=== PATIENT | male | born 1950 | race Caucasian/White ===

== ENCOUNTER 2016-06-29 08:14 | Day surgery (SDC) | payer MEDICAID, MEDICARE ==
[2016-06-23 12:00] VITALS: BMI 23.8
[~2016-06-29 08:14] MED LIST: DEXAMETHASONE SOD PHOSPHATE 10 MG/ML 1 ML VIAL IV ONE; HYDROmorphone 1 MG/ML 1 ML SYRINGE IVP PRN; LACTATED RINGERS 1,000 ML IV SCH; LIDOCAINE 1% 20 ML VIAL (10MG/ML) FOR IV START INTRADERMA PRN; MIDAZOLAM 2 MG/2 ML VIAL IV PRN; ONDANSETRON 4 MG/2 ML VIAL IVP ONE; SCOPOLAMINE 1.5MG/72HR PATCH TRANSDERM ONE; ceFAZolin 2 GM in SODIUM CHLORIDE 0.9% 100 ML IVPB ONE
[2016-06-29 08:40] VITALS: RESP 18; TEMP 97.6
--- NOTE | 2016-06-29 10:16 | P.GSHP ---
History of Present Illness H&P Date: 06/29/16 Chief Complaint: Pancreatic cancer Patient here today for Port-A-Cath removal. Port is been functioning properly. He also has a skin lesion in the left chest wall that is being addressed by dermatology. He has plans for that to be excised recently. Past Medical History Past Medical History: Cancer, Osteoarthritis (OA) Additional Past Medical History / Comment(s): DEAF LEFT EAR, RESTLESS LEG, Chronic Back Pain. Positive lymph node had whipple procedure 08/13/15. CHEMO [place] , LAST 12/28/15. HX OF ULCER. RECENT SKIN EXC FROM CHEST. HX OF PANCREATIC CA History of Any Multi-Drug Resistant Organisms: None Reported Past Surgical History: Cholecystectomy Additional Past Surgical History / Comment(s): PORT A CATH LEFT CHEST, NAI EYE CATARACT, nai feet plantar fasciitis surgery, right thumb surgery from previous injury, Whipple procedure 08/13/15, HX OF PERF BOWEL FROM ULCER Past Anesthesia/Blood Transfusion Reactions: No Reported Reaction Past Psychological History: No Psychological Hx Reported Smoking Status: Former smoker Past Alcohol Use History: Rare Additional Past Alcohol Use History / Comment(s): Quit Smoking 07/2015, 1PPD - Smoked ON AND OFF for APPROX 40 yrs Past Drug Use History: Marijuana Additional Drug Use History / Comment(s): INSTRUCTED TO WITHOLD 24 HRS PRIOR TO PROCEDURE - Past Family History Mother Family Medical History: No Reported History Brother(s) Family Medical History: Cancer Sister(s) Family Medical History: No Reported History Daughter(s) Family Medical History: No Reported History Father Family Medical History: Cancer Additional Family Medical History / Comment(s): PROSTATE Medications and Allergies Home Medications Medication Instructions Recorded Confirmed Type ALPRAZolam [Alprazolam] 0.25 mg PO HS 06/23/16 06/29/16 History Glucosamine Sulfate 1,500 mg PO BID 06/23/16 06/29/16 History Hydrocodone/Acetaminophen 1 tab PO DIRECTED PRN 06/23/16 06/29/16 History [Hydrocodon-Acetaminophen 5-325] Multivitamins, Thera [Multivitamin] 1 tab PO DAILY 06/23/16 06/29/16 History Pantoprazole [Protonix] 40 mg PO BID 06/23/16 06/29/16 History Pramipexole [Mirapex] 0.125 mg PO HS 06/23/16 06/29/16 History Warfarin [Coumadin] 5 mg PO SUMOTHSA 06/23/16 06/29/16 History Warfarin [Coumadin] 7.5 mg PO TUWEFR 06/23/16 06/29/16 History Allergies Allergy/AdvReac Type Severity Reaction Status Date / Time No Known Allergies Allergy Verified 06/29/16 08:37 Surgical - Exam Vital Signs Temp Pulse Resp BP Pulse Ox 97.6 F 68 18 137/89 99 06/29/16 08:39 06/29/16 08:39 06/29/16 08:39 06/29/16 08:39 06/29/16 08:39 Physical exam: General: Well-developed, well-nourished Chest: Port noted left chest wall, 2 cm raised skin lesion mildly erythematous inferior to that left chest wall HEENT: Normocephalic, sclerae nonicteric Abdomen: Nontender, nondistended Extremities: No edema Neuro: Alert and oriented Assessment and Plan (1) Pancreatic cancer Narrative/Plan: We'll proceed with port removal. Status: Acute
[2016-06-29] MEDS ORDERED: PROPOFOL 10 MG/ML 20 ML VIAL IV ONE (10:25)
[2016-06-29] MEDS ORDERED: MIDAZOLAM 2 MG/2 ML VIAL ONE (10:25)
[2016-06-29] MEDS ORDERED: fentaNYL (PF) 50 MCG/ML 2 ML AMP ONE (10:25)
[2016-06-29] MEDS ORDERED: LIDOCAINE 1% INJ 10MG/ML (20 ML MDV) SQ ONE ×2 (10:43)
[2016-06-29] MEDS ORDERED: NALOXONE 0.4 MG/ML 1 ML VIAL IV PRN (10:56)
--- NOTE | 2016-06-29 10:58 | P.PCN ---
Date of Procedure: 06/29/16 Procedure(s) Performed: PREOPERATIVE DIAGNOSIS: Pancreatic cancer POSTOPERATIVE DIAGNOSIS: Same PROCEDURE: Port-A-Cath removal SURGEON: Praveen EBL: Minimal ANESTHESIA: Sedation COMPLICATIONS: None OPERATIVE PROCEDURE: Patient was placed in the supine position. The patient was sedated per anesthesia that time. The chest was prepped and draped in the usual sterile fashion. The skin was localized with Marcaine solution. The previous incision was re-incised using a scalpel. The port was easily excised using accommodation of blunt dissection sharp dissection and electrocautery. The subcutaneous tissues were reapproximated using 3-0 Vicryl sutures. The skin was reapproximated using 4-0 Monocryl sutures. Steri-Strips and sterile dressings were then applied. DISPOSITION: Stable to recovery room
[2016-06-29 11:26] VITALS: BP 138/72; PULSE 62
== END 2016-06-29 11:56 | disposition home or self-care (01) ==
LOC: OR 08:14
PROVIDERS: ATTEND Surgery
DX: Z45.2 Encounter for adjustment and management of vascular access device (principal); C25.9 Malignant neoplasm of pancreas, unspecified; Z92.21 Personal history of antineoplastic chemotherapy; I48.91 Unspecified atrial fibrillation; F41.9 Anxiety disorder, unspecified; K21.9 Gastro-esophageal reflux disease without esophagitis; Z79.01 Long term (current) use of anticoagulants; Z79.899 Other long term (current) drug therapy; Z87.891 Personal history of nicotine dependence
CPT/HCPCS: 36590; J2250; J1100; J0690; J2405; J2001; J3010; J2704; 99152; 99153

== ENCOUNTER → 2016-09-05 | Outpatient (CLI) | payer MEDICAID ==
--- NOTE | 2016-09-08 11:29 | ECHOF ---
Referral Reason:I48.1 F fib I10 htn MEASUREMENTS -------- HEIGHT: 177.8 cm WEIGHT: 77.1 kg BP: 136/85 RVIDd: 3.5 cm (< 3.3) IVSd: 1.3 cm (0.6 - 1.1) LVIDd: 3.9 cm (3.9 - 5.3) LVPWd: 1.3 cm (0.6 - 1.1) IVSs: 1.7 cm LVIDs: 2.9 cm LVPWs: 2.1 cm LA Diam: 3.7 cm (2.7 - 3.8) LAESV Index (A-L): 37.30 ml/m Ao Diam: 3.6 cm (2.0 - 3.7) AV Cusp: 2.2 cm (1.5 - 2.6) MV EXCURSION: 21.692 mm (> 18.000) MV EF SLOPE: 56 mm/s (70 - 150) EPSS: 0.5 cm MV E Herrera: 0.59 m/s MV DecT: 289 ms MV A Herrera: 0.70 m/s MV E/A Ratio: 0.85 RAP: 5.00 mmHg RVSP: 25.72 mmHg FINDINGS -------- Sinus rhythm. This was a technically difficult study with suboptimal parasternal views. The left ventricular size is normal. There is mild concentric left ventricular hypertrophy. Overall left ventricular systolic function is normal with, an EF between 60 - 65 %. The right ventricle is mildly enlarged. LA is moderately dilated 34-39 ml/m2 The right atrium is normal in size. There is mild aortic valve sclerosis. Mild mitral annular calcification present. There is trace to mild mitral regurgitation. Mild tricuspid regurgitation present. Right ventricular systolic pressure is normal at < 35 mmHg. The pulmonic valve is normal. There is no pulmonic regurgitation present. The aortic root size is normal. Normal inferior vena cava with normal inspiratory collapse consistent with estimated right atrial pressure of 5 mmHg. There is no pericardial effusion. CONCLUSIONS -------- 1. Sinus rhythm. 2. Mild mitral annular calcification present. 3. There is trace to mild mitral regurgitation. 4. Mild tricuspid regurgitation present. 5. Right ventricular systolic pressure is normal at < 35 mmHg. 6. The pulmonic valve is normal. 7. The aortic root size is normal. 8. Normal inferior vena cava with normal inspiratory collapse consistent with estimated right atrial pressure of 5 mmHg. 9. There is no pericardial effusion. 10. This was a technically difficult study with suboptimal parasternal views. 11. The left ventricular size is normal. 12. There is mild concentric left ventricular hypertrophy. 13. Overall left ventricular systolic function is normal with, an EF between 60 - 65 %. 14. The right ventricle is mildly enlarged. 15. LA is moderately dilated 34-39 ml/m2 16. The right atrium is normal in size. 17. There is mild aortic valve sclerosis. [employer] SUPERVISOR: Lisa Pérez RDCS
== END | disposition home or self-care (01) ==
LOC: RADECHMAIN 11:20
PROVIDERS: ATTEND Internal Medicine Cardiovascular Disease
DX: I08.3 Combined rheumatic disorders of mitral, aortic and tricuspid valves (principal); I10 Essential (primary) hypertension
CPT/HCPCS: 93270; 93271; 93306

== ENCOUNTER → 2016-11-02 | Outpatient (CLI) | payer MEDICAID ==
[2016-11-02 13:31] LABS: Blood Urea Nitrogen 22 mg/dL (9-20); Non-African American GFR(MDRD) >60 (>60 ml/min/1.73 sqM)
--- NOTE | 2016-11-02 14:12 | CT ---
EXAMINATION TYPE: CT abdomen pelvis w con DATE OF EXAM: 11/02/2016 REFERENCE: Previous study dated 03/13/2016. HISTORY: C25.0 Pancreatic CA, Z03.89 Obs for mets HISTORY: Follow up of pancreatic cancer REFERENCE: NONE CT DLP: 627.40 mGy Automated exposure control for dose reduction was used. TECHNIQUE: Helical acquisition through the abdomen and pelvis was obtained following the oral ingesti on of with Oral Contrast and following intravenous administration of 100 mL of Omnipaque 300. The berto a was reformatted in axial, coronal and sagittal projections. FINDINGS: There is some scarring or atelectasis at the left lung base. There is no pleural or perica rdial fluid. The heart is not enlarged. There are coronary artery and other vascular calcifications p resent. Within the abdomen, the liver and spleen appear normal. The gallbladder is not identified. Both adrenal glands are normal. Both kidneys demonstrate function and appear morphologically normal. There is been a previous Whipple's procedure. No definite recurrent mass is seen. There is no significant retroperitoneal, iliac or inguinal adenopathy. There is some calcification within the prostate gland. Prostate gland is mildly enlarged. The bladder wall is mildly thickened. This may be secondary to chronic bladder outlet obstruction. There is no significant diverticular change and I do not see radiographic evidence of diverticulitis. The appendix is not visualized. Small bowel loops are normal. There is no significant free air and there is no free fluid. There is a periumbilical ventral hernia containing small bowel. There is a 4.9 cm mouth. There is a bilateral lysis at L5 with a grade 2 spondylolisthesis of L5 on S1. This was present previ ously. No bony destructive lesion seen. This hypertrophic spondylosis in the lower dorsal spine. IMPRESSION: 1. STATUS POST WHIPPLE'S PROCEDURE. 2. MILD THICKENING OF THE BLADDER WALL LIKELY SECONDARY TO CHRONIC BLADDER OBSTRUCTION. 3. PERIUMBILICAL VENTRAL HERNIA CONTAINING SMALL BOWEL. THERE IS A 4.9 CM MOUTH. 4. BILATERAL LYSIS AT L5 WITH A GRADE 2 SPONDYLOLISTHESIS OF L5 ON S1.
== END | disposition home or self-care (01) ==
LOC: RADCTMAIN 12:33
PROVIDERS: ATTEND Internal Medicine Hematology & Oncology
DX: K43.9 Ventral hernia without obstruction or gangrene (principal); N32.89 Other specified disorders of bladder; C25.0 Malignant neoplasm of head of pancreas; Z90.49 Acquired absence of other specified parts of digestive tract
CPT/HCPCS: 82565; 84520; 74177; 36415; Q9967

== ENCOUNTER → 2016-11-18 | Outpatient (CLI) | payer MEDICAID ==
[2016-11-18 12:27] LABS: Basophils % (A) 1 %; CH 32.4; CHCM 32.9; Eosinophils # (A) 0.4 k/uL (0-0.7); Eosinophils % (A) 4 %; HCT 40.5 % (39.0-53.0); HDW 2.37; HGB 13.2 gm/dL (13.0-17.5); Luc # (Auto) 0.19; Luc % (Auto) 2; Lymphocytes # (A) 1.8 k/uL (1.0-4.8); Lymphocytes % (A) 20 %; MCH 32.2 pg (25.0-35.0); MCHC 32.5 g/dL (31.0-37.0); Mean Platelet Volume 7.6; Monocytes # (A) 0.4 k/uL (0-1.0); Monocytes % (A) 5 %; Neutrophils # (A) 6.3 k/uL (1.3-7.7); Neutrophils % (A) 70 %; RBC 4.09 m/uL (4.30-5.90); RDW 13.8 % (11.5-15.5); WBC 9.1 k/uL (3.8-10.6); WBC (Perox) 9.44
[2016-11-18 12:46] LABS: ALT 40 U/L (21-72); AST 27 U/L (17-59); Alkaline Phosphatase 76 U/L (38-126); Anion Gap 9 mmol/L; Blood Urea Nitrogen 22 mg/dL (9-20); Calcium 9.5 mg/dL (8.4-10.2); Carbon Dioxide 25 mmol/L (22-30); Chloride 110 mmol/L (98-107); Cholesterol 120 mg/dL (<200); Glucose 82 mg/dL (74-99); HDL Cholesterol 59 mg/dL (40-60); Non-African American GFR(MDRD) >60 (>60 ml/min/1.73 sqM); Sodium 144 mmol/L (137-145); Total Bilirubin 0.6 mg/dL (0.2-1.3); Total Protein 6.6 g/dL (6.3-8.2); Triglycerides 56 mg/dL (<150)
== END | disposition home or self-care (01) ==
LOC: LABWHC1 11:35
PROVIDERS: ATTEND Family Medicine
DX: I10 Essential (primary) hypertension (principal); E78.00 Pure hypercholesterolemia, unspecified; Z12.5 Encounter for screening for malignant neoplasm of prostate
CPT/HCPCS: 80061; 80053; 84443; 85025; 36415; G0103

== ENCOUNTER → 2017-09-05 | Outpatient (CLI) | payer MEDICARE ==
[2017-09-05 07:50] LABS: Blood Urea Nitrogen 24 mg/dL (9-20)
--- NOTE | 2017-09-05 09:34 | CT ---
EXAMINATION TYPE: CT abdomen pelvis w con DATE OF EXAM: 09/05/2017 COMPARISON: NONE HISTORY: Pancreatic cancer CT DLP: 1491 mGycm CONTRAST: CT scan of the abdomen and pelvis is performed with Oral Contrast and with IV Contrast, patient injec anatoly with 100 ML mL of Isovue 300. FINDINGS: LUNG BASES-: No visible nodule. No infiltrate. LIVER/GB: No calcified gallstones. No space occupying hepatic lesion. Biliary tree is of normal ca liber. PANCREAS: There is been previous Whipple procedure. No distinct recurrent or residual mass is identif ied. SPLEEN: No splenic enlargement. No lesion seen. ADRENALS: No nodule. No thickening. KIDNEYS/BLADDER: No hydronephrosis. Nonobstructing left-sided nephrolithiasis.. No distinct renal m ass. Urinary bladder grossly unremarkable. BOWEL: Normal appendix. Normal bowel caliber. No inflammation. GENITAL ORGANS: No gross abnormality. LYMPH NODES: No greater than 1cm abdominal or pelvic lymph nodes are appreciated. AORTA: No significant abnormality. OSSEOUS STRUCTURES: Degenerative change and grade 2 spondylolisthesis L5 on S1. OTHER: Umbilical hernia containing several segments of small bowel measures 6 x 3.5 cm. Mouth of the hernia sac is 3.3 cm. No definite obstructive change at this time.. IMPRESSION: 1. Status post Whipple procedure. 2. Nonobstructing left-sided nephrolithiasis. 3. Nonobstructing left-sided nephrolithiasis.
== END | disposition home or self-care (01) ==
LOC: RADCTMAIN 07:09
PROVIDERS: ATTEND Internal Medicine Hematology & Oncology
DX: N20.0 Calculus of kidney (principal); Z90.411 Acquired partial absence of pancreas
CPT/HCPCS: 82565; 84520; 74177; 36415; Q9967

== ENCOUNTER → 2017-12-18 | Outpatient (CLI) | payer MEDICARE ==
[2017-12-18 14:32] LABS: Basophils % (A) 0 %; Eosinophils # (A) 0.2 k/uL (0-0.7); Eosinophils % (A) 2 %; HCT 43.7 % (39.0-53.0); HGB 14.7 gm/dL (13.0-17.5); Lymphocytes # (A) 1.8 k/uL (1.0-4.8); Lymphocytes % (A) 20 %; MCH 32.1 pg (25.0-35.0); MCHC 33.6 g/dL (31.0-37.0); MCV 95.6 fL (80.0-100.0); Mean Platelet Volume 7.8; Monocytes # (A) 0.6 k/uL (0-1.0); Monocytes % (A) 6 %; Neutrophils # (A) 6.6 k/uL (1.3-7.7); Neutrophils % (A) 71 %; Platelet Count 237 k/uL (150-450); RBC 4.57 m/uL (4.30-5.90); RDW 12.7 % (11.5-15.5); WBC 9.4 k/uL (3.8-10.6)
[2017-12-18 14:35] LABS: Calcium 9.7 mg/dL (8.4-10.2); Potassium 4.2 mmol/L (3.5-5.1); Total Bilirubin 0.6 mg/dL (0.2-1.3); Total Protein 6.9 g/dL (6.3-8.2)
[2017-12-18 15:04] LABS: PSA Annual Screen 1.2 ng/mL (0.00-4.00)
== END | disposition home or self-care (01) ==
LOC: LABWHC1 13:25
PROVIDERS: ATTEND Family Medicine
DX: Z00.00 Encounter for general adult medical examination without abnormal findings (principal)
CPT/HCPCS: 80061; 80053; 84443; 85025; 36415; G0103

== ENCOUNTER → 2018-03-29 | Outpatient (CLI) | payer MEDICARE ==
--- NOTE | 2018-03-29 11:24 | CT ---
EXAMINATION TYPE: CT abdomen pelvis w con DATE OF EXAM: 03/29/2018 COMPARISON: INDICATION: Pancreatic cancer DLP: 995 mGycm, Automated exposure control for dose reduction was used. CONTRAST: 100 ml mL of Isovue 300. Study performed with Oral Contrast TECHNIQUE: Axial images were obtained from above the diaphragm to the pubic rami in the axial plane a t 5 mm thick sections. Reconstructed images are reviewed on the computer in the coronal plane. FINDINGS: Limited CT sections are obtained the lung bases. The lung bases are clear. CT ABDOMEN: There is a periumbilical hernia containing loops of bowel. No obstruction is evident, con trast passes through Liver: Normal. Tiny amount of biliary air is present. Spleen: Normal Pancreas: Prior Whipple procedure. Visualized residual pancreas appears normal. Adrenal glands: The adrenal glands are normal. Gallbladder: Normal Kidneys: No masses are evident. No hydronephrosis is present. No cysts are present. There is a 0.5 cm calcification without obstruction in the mid left kidney. Aorta: Vascular calcification is within the aorta. Inferior vena cava: Normal. CT PELVIS: Loops of bowel within the abdomen and pelvis are normal. There are loops of bowel which are incom pletely distended or lack oral contrast limiting their evaluation. Scattered diverticular changes are within the sigmoid colon without acute diverticulitis. Appendix: Normal as visualized. Urinary bladder: Normal. Genitourinary structures: Prostate prominence calcification is present. Osseous structures: No suspicious lytic or sclerotic lesions. IMPRESSIONS: 1. Diverticulosis without acute diverticulitis. 2. Nonobstructing left renal stone. 3. Nonobstructing periumbilical hernia containing contrast-filled loops of bowel. 4. No suspicious recurrence or metastatic pancreatic cancer
== END ==
LOC: RADCTMAIN 07:37
PROVIDERS: ATTEND Internal Medicine Hematology & Oncology
DX: C25.0 Malignant neoplasm of head of pancreas (principal); K57.90 Diverticulosis of intestine, part unspecified, without perforation or abscess without bleeding; N20.0 Calculus of kidney; K42.9 Umbilical hernia without obstruction or gangrene
CPT/HCPCS: 82565; 84520; 74177; 36415; Q9967

== ENCOUNTER → 2018-09-04 | Outpatient (CLI) | payer MEDICARE ==
[2018-09-04 10:13] LABS: ALT 30 U/L (21-72); AST 22 U/L (17-59); Albumin 3.2 g/dL (3.5-5.0); Alkaline Phosphatase 62 U/L (38-126); Anion Gap 5 mmol/L; Blood Urea Nitrogen 23 mg/dL (9-20); Calcium 8.8 mg/dL (8.4-10.2); Carbon Dioxide 27 mmol/L (22-30); Chloride 108 mmol/L (98-107); Glucose 102 mg/dL (74-99); Potassium 4.8 mmol/L (3.5-5.1); Sodium 140 mmol/L (137-145); Total Bilirubin 0.3 mg/dL (0.2-1.3); Total Protein 5.7 g/dL (6.3-8.2)
--- NOTE | 2018-09-04 11:20 | CT ---
EXAMINATION TYPE: CT abdomen pelvis w con DATE OF EXAM: 09/04/2018 COMPARISON: 04/17/2018 HISTORY: epigastric pain CT DLP: 616.4 mGycm Automated exposure control for dose reduction was used. TECHNIQUE: Helical acquisition of images was performed from the lung bases through the pelvis. CONTRAST: Performed with Oral Contrast and with IV Contrast, patient injected with 100 mL of Isovue 370. FINDINGS: LUNG BASES: Minimal emphysematous changes are seen at the lung bases. Bandlike areas of pleural paren chymal scarring are seen multifocally within the left lower lobe and lingula. LIVER/GB: Residual left-sided pneumobilia is similar to the prior status post Whipple procedure. Ther e is main portal vein is enlarged measuring 2.3 cm. No new hepatic lesion is identified. Minimal intr ahepatic biliary ductal dilatation is stable. PANCREAS: The patient is status post Whipple procedure. Moderate was administered per pancreatic mass protocol and therefore the hypodensity seen in the pancreatic head surgical bed on series 6 image 47 represents the descending duodenum right lateral to the superior mesenteric vein. The pancreatic stella sharmila prominence throughout the body of the pancreas is unchanged from the prior. The pancreatic body a nd tail enhance homogeneously. SPLEEN: No significant abnormality is seen. ADRENALS: No significant abnormality is seen. KIDNEYS: Similar-appearing nonobstructing left upper pole renal calculus measures 4 mm. Kidneys enhan ce and excrete symmetrically.. FREE AIR: No free air is visualized. REPRODUCTIVE ORGANS: Prostate gland is heterogenous containing central zone calcifications. URINARY BLADDER: No significant abnormality is seen. ADENOPATHY: Paucity of intra-abdominal fat and opposing bowel loops make evaluation for adenopathy di fficult. Additionally there is mesenteric congestion that is new from the prior and mild anasarca janet t also make delineation of adenopathy difficult. No discrete greater than 1 cm short axis lymph nodes are seen in the retroperitoneum. A cluster loops of bowel are seen in the tyrell hepatis. OSSEOUS STRUCTURES: Sclerosis of the femoral heads may be related to degenerative arthropathy and is symmetric. Sacroiliac joint sclerosis is also seen bilaterally. No new suspicious osseous lesions. G rade 2 anterolisthesis of L5 on S1 is secondary to bilateral pars interarticularis defects. BOWEL: There is a bowel containing ventral abdominal hernia with a wide neck measuring 5 cm. Few sig moid colonic diverticula are noted. No dilated large or small bowel. Moderate degree fecal stasis is noted. IMPRESSION: 1. NEW MILD ANASARCA AND CENTRAL MESENTERIC CONGESTION WITH EVIDENCE OF PORTAL VENOUS HYPERTENSION. 2. NO FINDINGS TO FOCAL RECURRENCE OR ADENOPATHY ALTHOUGH EVALUATION OF ADENOPATHY IS SLIGHTLY LIMITE D SECONDARY TO PAUCITY OF INTRA-ABDOMINAL FAT AND MESENTERIC CONGESTION. 3. NO NEW EVIDENCE OF VISCERAL OR OSSEOUS METASTASIS IN THE ABDOMEN OR PELVIS.
[2018-09-04 16:36] LABS: Iron Saturation 15.24 (15.00-50.00)
[2018-09-04 17:13] LABS: Cancer Antigen 19-9 5.3 U/mL (0.0-34.9)
== END | disposition home or self-care (01) ==
LOC: RADCTMAIN 08:42
PROVIDERS: ATTEND Internal Medicine Hematology & Oncology
DX: K31.89 Other diseases of stomach and duodenum (principal); R60.1 Generalized edema; C25.0 Malignant neoplasm of head of pancreas
CPT/HCPCS: 82747; 80053; 82607; 82728; 83540; 83550; 86301; 74177; Q9967

== ENCOUNTER → 2019-03-12 | Outpatient (CLI) | payer MEDICARE ==
--- NOTE | 2019-03-12 13:34 | CT ---
EXAMINATION TYPE: CT abdomen pelvis w con DATE OF EXAM: 03/12/2019 COMPARISON: CT 09/04/2018, additional multiple previous CTs HISTORY: No complaints, Observation for metastases, history of pancreatic Cancer CT DLP: 615.9 mGycm Automated exposure control for dose reduction was used. TECHNIQUE: Helical acquisition of images from the lung bases through the pelvis have been completed. CONTRAST: Performed with Oral Contrast and with IV Contrast, patient injected with 80 mL of Isovue 300. FINDINGS: Lack of intra-abdominal fat limits evaluation. LUNG BASES: No significant abnormality is appreciated. AORTA: No significant abnormality is appreciated. LIVER/GB: Vague low-attenuation is present within the right lobe of the liver, axial image #26 periph erally as well as possibly within the left lobe, findings could possibly be artifactual. Patient is p ost Whipple procedure, there is pneumobilia. Patient is post cholecystectomy. Portal vein is markedly enlarged as on prior. Splenic vein is also dilated. PANCREAS: Postop changes are thought to be stable. SPLEEN: No significant abnormality is seen. ADRENALS: No significant abnormality is seen. KIDNEYS: Stable, left kidney shows a nonobstructing calculus, no hydronephrosis bilaterally. REPRODUCTIVE ORGANS: Prostate calcifications are present. BOWEL: There is likely an umbilical hernia containing bowel loops. FREE AIR: No Free Air visible. ASCITES: None visible. PELVIC ADENOPATHY: None visualized. RETROPERITONEAL ADENOPATHY: No Retroperitoneal Adenopathy visible. URINARY BLADDER: No significant abnormality is seen. OSSEOUS STRUCTURES: No significant change is seen. Degenerative disc changes are present in the lumb ar spine, bilateral spondylolysis at L5 with anterolisthesis. IMPRESSION: THERE IS SOME LIMITATION IN EVALUATION. POSTOP CHANGES. UMBILICAL HERNIA CONTAINS BOWEL LOOPS WITHOUT DEFINITE OBSTRUCTION. LEFT SIDED NEPHROLITHIASIS. LOW-ATTENUATION AREAS WITHIN THE LIVER ARE INDETER MINATE. LIVER MRI MAY BE OF BENEFIT.
== END | disposition home or self-care (01) ==
LOC: RADCTMAIN 08:52
PROVIDERS: ATTEND Internal Medicine Hematology & Oncology
DX: Z08 Encounter for follow-up examination after completed treatment for malignant neoplasm (principal); K42.9 Umbilical hernia without obstruction or gangrene; N20.0 Calculus of kidney; Z85.07 Personal history of malignant neoplasm of pancreas
CPT/HCPCS: 82565; 84520; 74177; Q9967

== ENCOUNTER → 2019-06-11 | Outpatient (CLI) | payer MEDICARE ==
[2019-06-11 10:05] LABS: African American GFR (CKD) >90 (>60 ml/min/1.73 sqM); Blood Urea Nitrogen 23 mg/dL (9-20); Non-African American GFR(CKD) 88 (>60 ml/min/1.73 sqM)
--- NOTE | 2019-06-11 11:14 | CT ---
EXAMINATION TYPE: CT abdomen pelvis w con DATE OF EXAM: 06/11/2019 COMPARISON: 03/12/2019 HISTORY: Pancreatic cancer CT DLP: 744.9 mGycm CONTRAST: CT scan of the abdomen and pelvis is performed with Oral Contrast and with IV Contrast, patient injec anatoly with 100 mL of Isovue 300. FINDINGS: LUNG BASES-: No visible nodule. No infiltrate. LIVER/GB: No calcified gallstones. No space occupying hepatic lesion. Biliary tree is of normal ca liber. Pneumobilia noted. PANCREAS: Postoperative changes noted about the pancreas. SPLEEN: No splenic enlargement. No lesion seen. ADRENALS: No nodule. No thickening. KIDNEYS/BLADDER: No hydronephrosis. Nonobstructing nephrolithiasis left kidney measuring 4 mm. No distinct renal mass. Urinary bladder grossly unremarkable. BOWEL: Normal appendix. Normal bowel caliber. No inflammation. GENITAL ORGANS: No gross abnormality. LYMPH NODES: No greater than 1cm abdominal or pelvic lymph nodes are appreciated. AORTA: No significant abnormality. OSSEOUS STRUCTURES: No significant abnormality is seen. OTHER: Stable midline umbilical hernia which contains 3 loops of small bowel. No definite strangulati on at this time. IMPRESSION: 1. Postoperative changes noted about the pancreas without evidence for recurrent or residual mass. 2. Stable umbilical hernia. 3. Nonobstructing nephrolithiasis left kidney measuring 4 mm.
== END | disposition home or self-care (01) ==
LOC: RADCTMAIN 07:56
PROVIDERS: ATTEND Internal Medicine Hematology & Oncology
DX: K42.9 Umbilical hernia without obstruction or gangrene (principal); N20.0 Calculus of kidney; C25.0 Malignant neoplasm of head of pancreas; Z98.890 Other specified postprocedural states
CPT/HCPCS: 82565; 84520; 74177; 36415; Q9967 ×2

== ENCOUNTER → 2020-06-02 | Outpatient (CLI) | payer MEDICARE ==
--- NOTE | 2020-06-02 11:36 | CT ---
EXAMINATION TYPE: CT abdomen pelvis w con DATE OF EXAM: 06/02/2020 COMPARISON: 06/11/2019, 03/12/2019 HISTORY: 69-year-old male Pancreatic Cancer TECHNIQUE: Contiguous axial scanning of the abdomen and pelvis following administration of 100 ml Iso khoi 370 IV contrast. Imaging was performed in the arterial phase and portal venous phase. Water was u sed as oral contrast per pancreas CT protocol. Coronal and sagittal reconstructions performed. CT DLP: 1044.10 mGycm Automated exposure control for dose reduction was used. FINDINGS: Heart normal size without pericardial effusion. Some strandy atelectasis in the lower lungs with mild emphysematous change. Tiny calcified granuloma at the right base. No pleural effusion. Liver shows pneumobilia, unchanged. Patulous main portal vein is unchanged. Portal venous system is patent. Gallbladder surgically absent. There is post resection change at the head of the pancreas with suspec anatoly pancreatico-enterostomy. No discrete pancreatic mass is identified. Numerous scattered nonenlarged and borderline sized mesenteric lymph nodes measuring up to 9 mm appea rs unchanged. Prominent water filled small bowel loops compatible with the oral contrast that was administered. Midline infraumbilical hernia containing nonobstructed small bowel loops measuring 7.2 cm wide versus 8.1 cm wide, previously. The patient seems to be regaining some intra-abdominal and subcutaneous adipose. Adrenal glands, right kidney, spleen appear within normal limits. Nonobstructive 6 mm left renal calc ulus. No dilated small bowel, free fluid, or free air. Scattered mild to moderate stool in the right side of the abdomen. No pericolonic inflammatory change . Bladder is urine distended. Central prostatic calcifications. Prostate gland measures 5.0 cm wide. Pr ominent scrotal calcifications are nonspecific. No abnormal fluid collection the pelvis or pelvic lym phadenopathy. Bones: Mild degenerative change of the hips. Bilateral L5 pars defects with grade 2, nearly grade 2 a nterolisthesis at L5-S1 with advanced degenerative disc disease. IMPRESSION: 1. POSTSURGICAL CHANGE AT THE HEAD OF THE PANCREAS. NO RECURRENT MASS OR INCREASING LYMPHADENOPATHY I DENTIFIED TO CLEARLY INDICATE PROGRESSION AT THIS TIME. 2. REDEMONSTRATED INFRAUMBILICAL MIDLINE VENTRAL ABDOMINAL WALL HERNIA MEASURING 7.2 CM WIDE AND CONT AINING NONOBSTRUCTED SMALL BOWEL LOOPS. 3. NONOBSTRUCTIVE 6 MM LEFT RENAL CALCULUS.
== END | disposition home or self-care (01) ==
LOC: RADCTMAIN 09:00
PROVIDERS: ATTEND Internal Medicine Hematology & Oncology
DX: Z03.89 Encounter for observation for other suspected diseases and conditions ruled out (principal); C25.0 Malignant neoplasm of head of pancreas; N20.0 Calculus of kidney; K43.9 Ventral hernia without obstruction or gangrene; K42.9 Umbilical hernia without obstruction or gangrene
CPT/HCPCS: 82565; 84520; 74177; 36415; Q9967

== ENCOUNTER → 2021-05-13 | Outpatient (CLI) | payer MEDICARE ==
[2021-05-13 22:26] LABS: African American GFR (CKD) 88.9 (60.0-200.0); Anion Gap 13.3 mmol/L (10.00-18.00); Blood Urea Nitrogen 20.5 mg/dL (9.0-27.0); Non-African American GFR(CKD) 76.7 (60.0-200.0); Potassium 4.1 mmol/L (3.5-5.5)
== END | disposition home or self-care (01) ==
LOC: LABWHC1 13:26
PROVIDERS: ATTEND Family Medicine
DX: R79.89 Other specified abnormal findings of blood chemistry (principal)
CPT/HCPCS: 36415; 80051; 82565; 84520

== ENCOUNTER → 2021-06-10 | Outpatient (CLI) | payer MEDICARE ==
--- NOTE | 2021-06-10 12:15 | CT ---
EXAMINATION TYPE: CT abdomen pelvis w con DATE OF EXAM: 06/10/2021 COMPARISON: Most recent CT June 02, 2020 and older studies HISTORY: Obsv. for Mets, Pancreatic CA CT DLP: 826.4 mGycm, Automated Exposure Control for Dose Reduction was Utilized. CONTRAST: CT scan of the abdomen and pelvis is performed with oral and with IV Contrast, patient injected with 100 mL of Isovue 300. FINDINGS: LUNG BASES: Posterior mild bibasilar linear scarring and/or atelectasis is redemonstrated. Right elyssa nary artery calcification and/or stent again seen. Tiny calcified granuloma axial image 7 redemonstra anatoly. LIVER/GB: Gallbladder surgically absent. Pneumobilia not seen on today's study. Prominent but patent main portal vein is redemonstrated on axial image 24. PANCREAS: Surgical resection of the head and proximal body of pancreas is redemonstrated. Anastomosis with small bowel loops difficult to visualize, nonopacified small bowel loop redemonstrated at the l evel of the pancreatic head axial image [address] Remnant pancreatic body and tail show no new mass or ductal dilatation. SPLEEN: No significant abnormality is seen. ADRENALS: No significant abnormality is seen. KIDNEYS: Stable 5 mm nonobstructing left renal calculus upper to midpole level coronal image 72 serie s 8. BOWEL: Oral contrast has not reached level of the cecum making evaluation of distal bowel slightly leigh boptimal. No suspicious small or large bowel dilatation is seen. PROSTATE/SEMINAL VESICLES: Mildly enlarged prostate with central calcifications is redemonstrated. LYMPH NODES: No new greater than 1cm abdominal or pelvic lymph nodes are appreciated. Some swirling of mesenteric vessels on the coronal images is redemonstrated without significant change from prior C T near slightly both slightly prominent but subcentimeter mesenteric lymph nodes. OSSEOUS STRUCTURES: Bilateral pars defect L5 level with grade 2 anterolisthesis L5 on S1 redemonstrat ed. Advanced disc space narrowing at this level again seen. OTHER: Persistent [place] umbilical hernia nondilated small bowel loops. IMPRESSION: Overall stable findings from most recent CT. No new suspicious mass or adenopathy identif ied to suggest neoplastic recurrence.
== END | disposition home or self-care (01) ==
LOC: RADCTMAIN 09:21
PROVIDERS: ATTEND Internal Medicine Hematology & Oncology
DX: C25.0 Malignant neoplasm of head of pancreas (principal)
CPT/HCPCS: 82565; 84520; 74177; 36415; Q9967 ×2

== ENCOUNTER 2023-03-16 07:46 | Day surgery (SDC) | payer MEDICARE ==
--- NOTE | 2023-03-15 17:58 | HP ---
HISTORY AND PHYSICAL DATE OF SURGERY: 03/16/2023. HISTORY OF PRESENT ILLNESS: Bruce Banerjee is a 72-year-old gentleman, seen with progressive right shoulder pain. We discussed options for treatment. He elected to proceed with right shoulder arthroscopy. Consent regarding procedure was obtained. PAST MEDICAL HISTORY: Hypertension and gastroesophageal reflux disease. PAST SURGICAL HISTORY: Knee arthroscopy and cataract surgery. DAILY MEDICATIONS: 1. Amlodipine. 2. Losartan. 3. Omeprazole. 4. Vitamins. ALLERGIES: None. SOCIAL HISTORY: Noncontributory. PHYSICAL EVALUATION OF THE RIGHT SHOULDER: Flexion 60 degrees. Abduction is 50 degrees. External rotation is 30 degrees with significant weakness. He has tenderness along the anterolateral acromion and rotator cuff insertion site. Impingement is positive at 60 degrees. Drop-arm sign is positive. Distal neurovascular exam is intact. IMAGING STUDIES: Radiographs of the right shoulder revealed a type 2 acromion along with acromioclavicular joint osteoarthritis and cystic changes of the tuberosity. MRI right shoulder revealed rotator cuff tear and labral tear. IMPRESSION: 1. Right shoulder impingement with rotator cuff tear. 2. Right shoulder acromioclavicular joint osteoarthritis. 3. Hypertension. 4. Gastroesophageal reflux disease. PLAN: Right shoulder arthroscopy with subacromial decompression, arthroscopic rotator cuff repair, Jacqueline procedure and debridement. MMODL / IJN: [id number] /
[~2023-03-16 07:46] MED LIST changes: -DEXAMETHASONE SOD PHOSPHATE 10 MG/ML 1 ML VIAL IV ONE; +DEXAMETHASONE SOD PHOSPHATE 4 MG/ML 1 ML VIAL IV ONE; +HYDROmorphone 0.5 MG/0.5 ML SYRINGE IVP PRN; -HYDROmorphone 1 MG/ML 1 ML SYRINGE IVP PRN; +LIDOCAINE 1% (10MG/ML) FOR IV START INTRADERMA PRN; -LIDOCAINE 1% 20 ML VIAL (10MG/ML) FOR IV START INTRADERMA PRN; -SCOPOLAMINE 1.5MG/72HR PATCH TRANSDERM ONE; -ceFAZolin 2 GM in SODIUM CHLORIDE 0.9% 100 ML IVPB ONE; +fentaNYL (PF) 50 MCG/ML 2 ML AMP IV PRN
[2023-03-16] MEDS ORDERED: ONDANSETRON 4 MG/2 ML VIAL ONE (08:38)
[2023-03-16 09:09] LABS: Basophils % (A) 0 %; Eosinophils # (A) 0.2 k/uL (0-0.7); Eosinophils % (A) 2 %; HCT 46.2 % (39.0-53.0); HGB 15.9 gm/dL (13.0-17.5); Lymphocytes # (A) 1.2 k/uL (1.0-4.8); Lymphocytes % (A) 14 %; MCH 34.4 pg (25.0-35.0); MCHC 34.3 g/dL (31.0-37.0); MCV 100.2 fL (80.0-100.0); Mean Platelet Volume 8.4; Monocytes # (A) 0.5 k/uL (0-1.0); Monocytes % (A) 5 %; Neutrophils % (A) 78 %; Platelet Count 233 k/uL (150-450); RBC 4.61 m/uL (4.30-5.90); RDW 12.6 % (11.5-15.5)
[2023-03-16] MEDS ORDERED: MIDAZOLAM 2 MG/2 ML VIAL IVP ONE (09:41)
[2023-03-16] MEDS ORDERED: fentaNYL (PF) 50 MCG/ML 2 ML AMP IVP ONE (09:41)
[2023-03-16] MEDS ORDERED: NEOSTIGMINE 1 MG/ML 10 ML VIAL ONE (09:46)
[2023-03-16] MEDS ORDERED: LIDOCAINE 1% INJ 10MG/ML (20 ML MDV) ONE (09:46)
[2023-03-16] MEDS ORDERED: fentaNYL (PF) 50 MCG/ML 2 ML AMP ONE (09:46)
[2023-03-16] MEDS ORDERED: ROPIVACAINE 5 MG/ML 30 ML VIAL ONE (09:46)
[2023-03-16] MEDS ORDERED: PHENYLEPHRINE-0.9% NACL SYG 1,000 MCG/10 ML SYRINGE ONE (09:46)
[2023-03-16] MEDS ORDERED: GLYCOPYRROLATE 0.2 MG/ML 2 ML VIAL ONE (09:46)
[2023-03-16] MEDS ORDERED: SUCCINYLCHOLINE CHLORIDE 200 MG/10 ML VIAL IV ONE (09:46)
[2023-03-16] MEDS ORDERED: ROCURONIUM 10 MG/ML (5 ML VIAL) IV ONE (09:46)
[2023-03-16] MEDS ORDERED: PROPOFOL 10 MG/ML 20 ML VIAL IV ONE (09:46)
[2023-03-16 09:58] LABS: ALT 24 U/L (4-49); AST 32 U/L (17-59); African American GFR (CKD) >90 (>60 ml/min/1.73 sqM); Albumin 4.1 g/dL (3.5-5.0); Alkaline Phosphatase 72 U/L (38-126); Anion Gap 5 mmol/L; Blood Urea Nitrogen 24 mg/dL (9-20); Calcium 9.5 mg/dL (8.4-10.2); Carbon Dioxide 29 mmol/L (22-30); Chloride 107 mmol/L (98-107); Glucose 111 mg/dL (74-99); Non-African American GFR(CKD) 80 (>60 ml/min/1.73 sqM); Sodium 141 mmol/L (137-145); Total Bilirubin 0.6 mg/dL (0.2-1.3); Total Protein 6.8 g/dL (6.3-8.2)
--- NOTE | 2023-03-16 10:48 | P.ANPRN ---
Procedure Note - Anesthesia - Nerve Block Performed Right Interscalene Single Time Out Performed: Yes ([id number]) Date of Procedure: 03/16/23 Procedure Start Time: 09:41 Procedure Stop Time: 09:43 Location of Patient: PreOp Indication: Acute Post-Operative Pain, Requested by Surgeon Specifically requested for management of pain by DrChristal: Prosper Gomez Sedation Type: Sedate with meaningful contact maintained Preparation: Sterile Prep Position: Supine Catheter: None Needle Types: Pajunk Needle Gauge: 21 Ultrasound used to visualize needle placement: Yes Ultrasound used to observe medication spread: Yes Injectate: 0.5% Ropivacaine (see comment for volume) (30cc) Blood Aspirated: No Pain Paresthesia on Injection Noted: No Resistance on Injection: Normal Image Stored and Saved: Yes Events: Uneventful and Well Tolerated
[2023-03-16] MEDS ORDERED: LACTATED RINGERS 1,000 ML IV ONE (11:10)
--- NOTE | 2023-03-16 11:26 | P.OP ---
Date of Procedure: 03/16/23 Preoperative Diagnosis: Right shoulder impingement Postoperative Diagnosis: 1. Right shoulder rotator cuff tear 2. Right shoulder impingement 3. Right shoulder acromioclavicular joint osteoarthritis 4. Right shoulder superficial labral tear Procedure(s) Performed: 1. Right shoulder arthroscopic rotator cuff repair 2. Right shoulder arthroscopic subacromial decompression 3. Right shoulder arthroscopic Jacqueline procedure 4. Right shoulder arthroscopic debridement labral tear Implants: 2Arthrex 5.5 swivel lock anchors 2Arthrex 4.75 lock anchors Anesthesia: GETA, regional (Interscalene block) Surgeon: Prosper Gomez Greens Or Grounds Superintendent #1: Rc Reddy Estimated Blood Loss (ml): 12 Pathology: none sent Condition: stable Disposition: PACU Indications for Procedure: 72-year-old gentleman seen with progressive right shoulder pain. After treatment options were discussed, he elected to proceed with arthroscopy. Operative Findings: See description of procedure Description of Procedure: Patient underwent an interscalene block by department of anesthesia. The patient was then taken to the operative suite. The patient underwent a general anesthetic by the department of anesthesia. The patient was placed into a lateral position and secured. There was appropriate padding of the bony prominence. Right shoulder was then prepped and draped in normal sterile or thopedic fashion. We placed the extremity in 10 pounds of longitudinal traction. A posterior incision was now made for a posterior working portal site. The trocar and cannula were inserted into the glenohumeral joint. Arthroscopy was initiated. Spinal needle was now inserted anteriorly, to ascertain the anterior working portal site. An incision was now made in that area, a trocar was inserted followed by a probe. The biceps tendon was absent. There was a large rotator cuff tear present. There was some superficial tearing of the labrum present. There were grade 1 chondromalacia changes. I introduced a motorized shaver and debrided out the superficial labral tear. The residual labrum was probed and was found to be stable. Instruments were now removed from the glenohumeral joint. Utilizing the posterior working portal site, the trocar and cannula were inserted into the subacromial space. Arthroscopy initiated. I made an incision 2 fingerbreadths lateral to the acromion. I introduced my trocar followed by my ArthroCare ablator. I now began ablating thick subacromial bursal tissue, which exposed the undersurface of the anterior acromion. There was diminished subacromial space. There was a very prominent anterior acromion. A motorized bur was introduced and a subacromial decompression was performed. I also excised some osteophytes off the inferior aspect of the distal clavicle. The AC joint was visualized and noted to be fairly arthritic. The motorized bur was introduced in the anterior portal site and a Jacqueline procedure was performed without difficulty, decompressing the AC joint nicely. I turned my attention to the rotator cuff. There was a 3 cm rotator cuff tear. I debrided the margins getting down to stable tendon tissue. I introduced my motorized bur and abraded the footprint area, getting some petechial bleeding. I now made an accessory portal site off the lateral aspect of the acromion. I punched 2 holes medial for medial row fixation with the assistance of Jeremias STERN carefully tapping the punch with a mallet as I held the punch and the camera. I now introduced both anchors into the pre-punched holes and Jeremias STERN tapped them with the ma llet as I held anchors and the camera. Jeremias STERN now screwed the anchors in place a while I held the anchor guide and camera. All 8 limbs of suture were now passed through good bites of rotator cuff tendon. I now punched 2 holes for lateral row fixation again I held the punch and camera while Jeremias STERN used a mallet to tap in the punch. We now passed sutures through both anchors and individually I introduced the anchors into the pre-punch holes I held the anchor guide in position with one hand holding the camera with the other hand while Jeremias STERN tensioned the sutures and screwed in the anchors one at a time. All residual suture limbs were now clipped. We had good compression of the tendon along the entire footprint. Instruments now removed from the portal sites. All portal sites were approximated with nylon suture. Sterile dressings were applied followed by a shoulder immobilizer. Rc STERN assisted in this complex case. The patient was awakened, transferred to a bed, and taken to recovery in stable condition.
[2023-03-16 11:38] VITALS: TEMP 97
[2023-03-16 12:00] VITALS: RESP 16
[2023-03-16 13:01] VITALS: BP 113/66; PULSE 52
== END 2023-03-16 12:57 | disposition home or self-care (01) ==
LOC: OR 07:46
PROVIDERS: ATTEND Orthopaedic Surgery
DX: M75.41 Impingement syndrome of right shoulder (principal); M75.101 Unspecified rotator cuff tear or rupture of right shoulder, not specified as traumatic; M19.011 Primary osteoarthritis, right shoulder; S43.431A Superior glenoid labrum lesion of right shoulder, initial encounter; G89.18 Other acute postprocedural pain; I10 Essential (primary) hypertension; K21.9 Gastro-esophageal reflux disease without esophagitis; X58.XXXA Exposure to other specified factors, initial encounter; Z79.899 Other long term (current) drug therapy
CPT/HCPCS: 64415; 80053; 85025; 29824; 29826; C1894; C1713; J2250; J0330; J1100; J2710; J0690; J2405; J2001; J3010; J2795; J2704; J2371

== ENCOUNTER → 2023-07-06 | Outpatient (CLI) | payer MEDICARE ==
[2023-07-06 11:11] LABS: African American GFR (CKD) >90 (>60 ml/min/1.73 sqM); Blood Urea Nitrogen 21 mg/dL (9-20); Non-African American GFR(CKD) >90 (>60 ml/min/1.73 sqM)
--- NOTE | 2023-07-06 14:06 | CT ---
EXAMINATION TYPE: CT ChestAbdPelvis w con CT DLP: 1331 mGycm, Automated exposure control for dose reduction was used. DATE OF EXAM: 07/06/2023 12:53 PM COMPARISON: 06/10/2021 dating back to 09/26/2020. CLINICAL INDICATION:Male, 72 years old with history of weight loss; PHH, weight loss Technique: CT ChestAbdPelvis w con; Multiple axial images were obtained. Two-dimensional coronal and sagittal reconstructions were obtained. Contrast used:100 mL of Isovue 300 with IV Contrast, Oral contrast used: with Oral Contrast Findings: CHEST: LUNGS/ PLEURA: No focal consolidation, pneumothorax or pleural effusion. Mild centrilobular and deya eptal emphysema changes throughout the lungs. AIRWAY: Patent and unremarkable. HEART: Size within normal limits. MEDIASTINUM: No gross evidence of adenopathy. VASCULATURE: No aortic aneurysm. MUSCULOSKELETAL: Moderate disc degeneration changes are present throughout the thoracolumbar spine. SOFT TISSUES/LYMPH NODES: Unremarkable. LOWER NECK: No significant findings. ABDOMEN: ABDOMEN LIVER: Unremarkable GALLBLADDER AND BILE DUCTS: The gallbladder appears surgically absent. PANCREAS: Similar morphology dating back to multiple priors. SPLEEN: Unremarkable. ADRENAL GLANDS: Unremarkable. KIDNEYS AND URETERS: No evidence of hydronephrosis or obstructive renal calculus. The ureters are unr emarkable. There is nonobstructing calculus measuring up to 3 mm on the left. No right renal calculi . PELVIS BLADDER: Unremarkable REPRODUCTIVE: Prostate is enlarged in size measuring 4.8 cm in transverse dimension. Calcifications a re seen along the scrotum. Similar to metastatic to at least 2020 ABDOMEN & PELVIS STOMACH AND BOWEL: Suspected postsurgical changes of the upper abdomen No evidence of bowel obstructi on. PERITONEUM: No evidence of pneumoperitoneum or free fluid. VASCULATURE: Mild atherosclerotic calcifications are present throughout the abdominal aorta and its b ranches. MUSCULOSKELETAL: No acute osseous abnormalities. Mild disc degeneration changes are present throughou t the thoracolumbar spine. Similar grade 2 anterolisthesis of L5 on S1 with bilateral pars interartic ularis defects. LYMPH NODES: No gross evidence for lymphadenopathy. SOFT TISSUE/ABDOMINAL WALL: Ventral wall hernia containing loops of small bowel. No evidence for obst ruction. IMPRESSION: No evidence for intrathoracic or abdominal mass. No evidence for adenopathy.
== END | disposition home or self-care (01) ==
LOC: RADCTMAIN 10:37
PROVIDERS: ATTEND Internal Medicine Hematology & Oncology
DX: C25.0 Malignant neoplasm of head of pancreas (principal); E86.0 Dehydration; D50.9 Iron deficiency anemia, unspecified; I10 Essential (primary) hypertension
CPT/HCPCS: 82565; 84520; 71260; 74177; 36415; Q9967

== ENCOUNTER 2024-01-26 15:54 | Inpatient (IN) | payer MEDICARE ==
[2024-01-26] MEDS ORDERED: NALOXONE 0.4 MG/ML 1 ML VIAL IV PRN (16:53)
[2024-01-26] MEDS ORDERED: HYDROcodone/APAP 5-325MG 1 EACH TAB PO PRN (16:53)
[2024-01-26] MEDS ORDERED: oxyCODONE-APAP 5-325MG 1 EACH TAB PO PRN (16:53)
[2024-01-26] MEDS ORDERED: MAG HYDROX/AL HYDROX/SIMETH 30 ML CUP PO PRN (16:53)
[2024-01-26] MEDS ORDERED: CALCIUM CARBONATE 500 MG CHEWABLE PO PRN (16:53)
--- NOTE | 2024-01-26 17:02 | ED ---
General Adult HPI - General Chief complaint: Back Pain/Injury Stated complaint: back pain Time Seen by Provider: 01/26/24 16:06 Source: patient Mode of arrival: wheelchair Limitations: no limitations - History of Present Illness Initial comments: Patient is a pleasant 73-year-old gentleman presenting today at the direction of his orthopedic surgeon for abnormal MRI findings. Patient states he has had progressively worsening back pain since August. This has resulted in feeling like his feet are heavy and weakness in his legs to the point where over the last 3 to 4 days he has required a wheelchair. Patient has been using oxycodone for his back pain with intermittent relief. He denies saddle anesthesia, difficulty urinating/changes in urination, though does feel at times he has trouble emptying his whole bladder and endorses chronic constipation but states that he attributes this to his oxycodone use. He has had 3-4 falls in the last few weeks 2/2 weakness but denies any head or neck trauma. MRI cervical spine performed this week with Dr. Piedra showed concerning findings so patient was send to the ED. Patient denies fevers, chest pain, abdominal pain or POOJA. - Related Data Home Medications Medication Instructions Recorded Confirmed ALPRAZolam [Alprazolam] 0.25 mg PO BID PRN 06/23/16 01/26/24 Pramipexole [Mirapex] 0.125 mg PO BID PRN 06/23/16 01/26/24 Pramipexole [Mirapex] 0.125 mg PO HS 03/10/23 01/26/24 Fish Oil/Dha/Epa [Fish Oil 1,200 1 cap PO BID 01/26/24 01/26/24 mg Fish Oil] Losartan Potassium 100 mg PO DAILY 01/26/24 01/26/24 Multivitamin (No Iron) 1 tab PO DAILY 01/26/24 01/26/24 Naproxen Sodium [Aleve] 440 mg PO DAILY 01/26/24 01/26/24 Omeprazole 20 mg PO HS 01/26/24 01/26/24 amLODIPine [Norvasc] 5 mg PO HS 01/26/24 01/26/24 oxyCODONE HCL [OxyIR] 5 mg PO TID PRN 01/26/24 01/26/24 Allergies Allergy/AdvReac Type Severity Reaction Status Date / Time No Known Allergies Allergy Verified 01/26/24 17:54 Review of Systems ROS Statement: Those systems with pertinent positive or pertinent negative responses have been documented in the HPI. ROS Other: All systems not noted in ROS Statement are negative. Past Medical History Past Medical History: Cancer, GERD/Reflux, Hypertension, Osteoarthritis (OA) Additional Past Medical History / Comment(s): DEAF LEFT EAR, RESTLESS LEG, Chronic Back Pain. Positive lymph node had whipple procedure 08/13/15. CHEMO TX, LAST 12/28/15. HX OF ULCER. SKIN CA EXC FROM CHEST. HX OF PANCREATIC CA. hx perforated bowel- sugery. heart murmur , rt shoulder pain with decreased ROM History of Any Multi-Drug Resistant Organisms: None Reported Past Surgical History: Cholecystectomy Additional Past Surgical History / Comment(s): PORT A CATH LEFT CHEST- removed, NAI EYE CATARACT, nai feet plantar fasciitis surgery, right thumb surgery from previous injury, Whipple procedure 08/13/15, HX OF PERF BOWEL FROM ULCER Past Anesthesia/Blood Transfusion Reactions: No Reported Reaction Past Psychological History: No Psychological Hx Reported Smoking Status: Former smoker Past Alcohol Use History: None Reported Past Drug Use History: None Reported - Past Family History Mother Family Medical History: No Reported History Brother(s) Family Medical History: Cancer Sister(s) Family Medical History: No Reported History Daughter(s) Family Medical History: No Reported History Father Family Medical History: Cancer Additional Family Medical History / Comment(s): PROSTATE General Exam - General Exam Comments Initial Comments: PE: CONSTITUTIONAL: No apparent distress, well appearing, seated in wheelchair SKIN: Warm, dry, no jaundice, hives or petechiae EYES: Pupils are equally round, extraocular movements intact without nystagmus, clear conjunctiva, non-icteric sclera HENT: Normocephalic, atraumatic, moist mucus membranes, oropharynx clear without exudates NECK: , Full range of motion, normal appearance, no midline spinal TTP PULMONARY: Clear to auscultation without wheezes, rhonchi, or rales, normal excursion, no accessory muscle use and no stridor CARDIOVASCULAR: Regular rate, rhythm, normal S1 and S2. No appreciated murmurs, rubs or gallops. Strong radial pulses with intact distal perfusion. No lower extremity edema GASTROINTESTINAL: Soft, non-tender, non-distended, no palpable masses, no rebound or guarding. No hepatosplenomegaly MUSCULOSKELETAL: Extremities have no gross deformity, no edema, redness, or swelling. No calf swelling NEUROLOGIC:_a/o x 3, GCS 15, normal mentation and speech. 3/5 strength in the bilateral upper extremities with decreased sensation to light touch over the dorsal aspects of the hands and forearms, 5/5 strength in bilateral LE, sensatio n intact throughout LE, able to move all 4 extremities through full rom PSYCHIATRIC:_normal mood and affect, thought process is clear and linear Limitations: no limitations Course Vital Signs 01/26/24 15:58 Temperature 97.6 F Pulse Rate 55 L Respiratory 18 Rate Blood Pressure 135/77 O2 Sat by Pulse 96 Oximetry Medical Decision Making - Medical Decision Making Was pt. sent in by a medical professional or institution (, PA, HEAD NECK SURGEON, urgent care, hospital, or penitentiary...) When possible be specific @ -Patient was sent in by orthopedic surgery, Dr. Piedra Did you speak to anyone other than the patient for history (EMS, parent, family, police, friend...)? What history was obtained from this source @ -Patient's and daughter at bedside and assisted in providing history, Dr. De Jesus called the ED and provided additional history Did you review nursing and triage notes (agree or disagree)? Why? @ -I reviewed and agree with nursing and triage notes Were old charts reviewed (outside hosp., previous admission, EMS record, old EKG, old radiological studies, urgent care reports/EKG's, penitentiary records)? Report findings @ -Reviewed MRI cervical spine MRI cervical spine significant for an "abnormal signal within the spinal cord level C3-C5 which may be secondary to compressive myelitis or myelomalacia, there is mass effect and mild compression of the spinal cord, multilevel severe degenerative disc disease with broad-based disc protrusion and hypertrophic changes C4-C5 results in moderate to severe canal stenosis and bilateral foraminal encroachment, right paracentral disc osteophyte complex with spondylolysis and disc protrusion C3-4 results in severe right sided foraminal encroachment bilateral mild central stenosis C5-C6 due to broad- based disc bulging and hypertrophic changes bilateral foraminal encroachment". Differential Diagnosis (chest pain, altered mental status, abdominal pain women, abdominal pain men, vaginal bleeding, weakness, fever, dyspnea, syncope, headache, dizziness, GI bleed, back pain, seizure, CVA, palpatations, mental health, musculoskeletal)? @ -Differential diagnosis remains broad however top considerations include myelomalacia, compressive myelitis, age related changes, this is not all inclusive list X-rays interpreted by me (1pt min.). @ -None done CT interpretation by me No evidence of fracture U/S interpreted by me (1pt. min.). @ -None done What testing was considered but not performed or refused? (CT, X-rays, U/S, labs)? Why? @ -None What meds were considered but not given or refused? Why? @ -None Did you discuss the management of the patient with other professionals ( professionals i.e. , PA, HEAD NECK SURGEON, lab, RT, psych nurse, social work supervisor, environmental lawyer, teacher, building drafting officer, immigration case manager)? Give summary @ Discussed with Dr. Piedra and Dr. Bennett Was smoking cessation discussed for >3mins.? @ -No Was critical care preformed (if so, how long)? @ -No Were there social determinants of health that impacted care today? How? (Homelessness, low income, unemployed, alcoholism, drug addiction, transportation, low edu. Level, literacy, decrease access to med. care, longterm, rehab)? @ -No Was there de-escalation of care discussed even if they declined (Discuss DNR or withdrawal of care, Hospice)? @ -No What co-morbidities impacted this encounter? (DM, HTN, Smoking, COPD, CAD, Cancer, CVA, ARF, Chemo, Hep., AIDS, mental health diagnosis, sleep apnea, morbid obesity)? @ -None Was patient admitted / discharged? Hospital course, mention meds given and route, prescriptions, significant lab abnormalities, going to OR and other pertinent info. @ -Hospital course Admitted-patient is a pleasant 73-year-old gentleman who presented at the direction of his orthopedic surgeon due to significant MRI cervical spine findings. Dr. Piedra kindly called the emergency department and explained need for admission to his service and requested medicine consult for clearance for anticipated surgery. Plans for OR on Monday. Additionally recommended CT cervical spine. On my assessment patient pleasant, in NAD, well appearing. In wheelchair in hallway cubby, family at bedside. Exam significant for bilateral 3/5 strength and decreased sensation in the UE, no midline spinal TTP, no step offs or skin changes. Patient a febrile. Discussed plan for admission, CT cspine, pain control and possible labs for medical clearance depending on internal medicine's recommendations. Patient and family agreeable with POC. Discussed with Dr. Bennett for need for medical consult, rec's CBC, CMP, EKG, kindly agrees to consult on patient. Patient admitted to Dr. Piedra in stable condition. Undiagnosed new problem with uncertain prognosis? @ No Drug Therapy requiring intensive monitoring for toxicity (Heparin, Nitro, Insulin, Cardizem)? @ -No Were any procedures done? @ -No Diagnosis/symptom? @ Cervical Myelopathy, weakness Acute, or Chronic, or Acute on Chronic? @ -Acute Uncomplicated (without systemic symptoms) or Complicated (systemic symptoms)? @ -complicated Side effects of treatment? @ -No Exacerbation, Progression, or Severe Exacerbation? @ -No Poses a threat to life or bodily function? How? (Chest pain, USA, MD, pneumonia, PE, COPD, DKA, ARF, appy, cholecystitis, CVA, Diverticulitis, Homicidal, Suicidal, threat to staff... and all critical care pts) @ -Yes, if spinal cord compression allowed to continue or worsens could result in complete paralysis or life altering disability - Lab Data Result diagrams: 01/26/24 17:12 01/26/24 17:12 Disposition Clinical Impression: Cervical myelopathy, Upper extremity weakness Disposition: ADMITTED IP TO THIS HOSP
[2024-01-26] MEDS: oxyCODONE ER 20 MG TAB.ER.12H PO STA (17:14)
[2024-01-26 17:40] LABS: Basophils % (A) 0 %; Eosinophils # (A) 0.2 k/uL (0-0.7); Eosinophils % (A) 2 %; HCT 41.8 % (39.0-53.0); HGB 14.6 gm/dL (13.0-17.5); Lymphocytes # (A) 1.8 k/uL (1.0-4.8); Lymphocytes % (A) 24 %; MCH 34.2 pg (25.0-35.0); MCHC 34.9 g/dL (31.0-37.0); Monocytes # (A) 0.4 k/uL (0-1.0); Monocytes % (A) 6 %; Neutrophils % (A) 66 %; Platelet Count 247 k/uL (150-450); RBC 4.26 m/uL (4.30-5.90); RDW 12.1 % (11.5-15.5); WBC 7.6 k/uL (3.8-10.6)
[2024-01-26 17:50] LABS: ALT 20 U/L (4-49); AST 27 U/L (17-59); African American GFR (CKD) >90 (>60 ml/min/1.73 sqM); Albumin 4.1 g/dL (3.5-5.0); Alkaline Phosphatase 72 U/L (38-126); Anion Gap 5 mmol/L; Blood Urea Nitrogen 21 mg/dL (9-20); Calcium 9.8 mg/dL (8.4-10.2); Carbon Dioxide 28 mmol/L (22-30); Chloride 108 mmol/L (98-107); Glucose 88 mg/dL (74-99); Non-African American GFR(CKD) >90 (>60 ml/min/1.73 sqM); Sodium 141 mmol/L (137-145); Total Bilirubin 0.6 mg/dL (0.2-1.3); Total Protein 6.6 g/dL (6.3-8.2)
--- NOTE | 2024-01-26 18:39 | CT ---
EXAMINATION TYPE: CT cervical spine wo con CT DLP: 296.9 mGycm, Automated exposure control for dose reduction was used. DATE OF EXAM: 01/26/2024 6:22 PM COMPARISON: MRI same day. CLINICAL INDICATION: Male, 73 years old with history of abnormal MRI findings, req's by ortho; PHH, n cory pain, unsteady gait TECHNIQUE: Axial CT images from the skull base to the inferior aspect of T2 we obtained without intra venous contrast. Coronal and sagittal reformatted images were also reviewed. Contrast used: mL of , (if blank None) Oral contrast used: (if blank None) FINDINGS: Fracture: None. Osseous structures: Multilevel degenerative disc disease changes with endplate spurring and disc oste ophyte complex's. Vertebral alignment: Straightening of the alignment with grade 1 anterolisthesis of C4 and C5. Spinal canal/Neural Foramina: Disc osteophyte complexes at C3-C4 5 C6 C6 C7 with at least mild spinal canal stenosis. Facet joint uncovertebral joint arthropathy scattered throughout the cervical spine with varying degrees of neural foraminal stenosis. No foraminal stenosis worse at C3-C4 with moderate to severe, C4-C5 severe left and moderate right and moderate to severe C5-C6 and C6-C7 bilaterally. Neck soft tissues: Prevertebral soft tissues are within normal limits. Other: The airway is patent. The lung apices are clear. IMPRESSION: 1. No evidence of cervical spine fracture. 2. Moderate multilevel degenerative disc disease. 3. Grade 1 anterolisthesis of C4 and C5.
--- NOTE | 2024-01-26 20:46 | P.HPOR ---
History of Present Illness H&P Date: 01/26/24 73 yo male presents for evaluation of his low back and mostly his progressive inability to walk since August of this year. He states there was no real inciting event in August, but that he noted towards the end of the month he was losing the ability to walk. His legs were becoming more wobbly and he was becoming more unsteady on his feet. He was losing his balance and he was also unable to hold on to objects as well. Today he presents in a wheelchair. He had been seen by [facility] in the area for the last few months for shots and PT and medications all of which have done nothing to help him. His is extremely frustrated as his has gotten worse not better. He had an MRI done of his lower back and brain. 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 He states that he has had back pain most of his life and that it does not seem to have gotten much worse in the time he has not been able to walk, but that he does notice it more now. He states b/l LE weakness, numbness/tingling as well as new inner thigh numbness/tingling. He states more so that his arms do not seem to work as well as they used to and his hands are all but useless lately. He drops things constantly and cannot even write his name. He denies any trauma or other events. MRI was done of his neck and RED ALERT read was called to myself. Pt was then contacted immediately and send to ED for evaluation, admission and surgical intervention. PAST IMAGING: -YES -XR, MRI TRAUMA RELATED: -NO WORK RELATED: -NO PT IN LAST 6 MONTHS: -YES -Several rounds without improvement, progressive worsening of weakness and myelopathic sx. PHYSICIAN DIRECTED HOME EXERCISE PROGRAM: -YES ACTIVITY MODIFICATION: -YES MEDICATIONS: -YES -[place], Gabapentin, Flexeril, Prednisone. No improvement ALTERNATIVE INTERVENTIONS (CHIROPRACTIC, ACUPUNCTURE, MASSAGE, RICE): -YES BRACING: -NO INJECTIONS (NISSA, TF, RFA): -YES -Several NISSA as well as TFESI without improvement of any sx. -OTHER: NA Review of Systems The patients' past social, medical, family, surgical history, as well as review of systems, have been reviewed. Please refer to the Neurosurgery History and Physical form that has been scanned into our electronic medical record system. 16 points review of systems completed and as stated in HPI, all other systems reviewed are negative. Past Medical History Past Medical History: Cancer, GERD/Reflux, Hypertension, Osteoarthritis (OA) Additional Past Medical History / Comment(s): DEAF LEFT EAR, RESTLESS LEG, Chronic Back Pain. Positive lymph node had whipple procedure 08/13/15. CHEMO [place], LAST 12/28/15. HX OF ULCER. SKIN CA EXC FROM CHEST. HX OF PANCREATIC CA. hx perforated bowel- sugery. heart murmur , rt shoulder pain with decreased ROM History of Any Multi-Drug Resistant Organisms: None Reported Past Surgical History: Cholecystectomy Additional Past Surgical History / Comment(s): PORT A CATH LEFT CHEST- removed, NAI EYE CATARACT, nai feet plantar fasciitis surgery, right thumb surgery from previous injury, Whipple procedure 08/13/15, HX OF PERF BOWEL FROM ULCER Past Anesthesia/Blood Transfusion Reactions: No Reported Reaction Past Psychological History: No Psychological Hx Reported Smoking Status: Former smoker Past Alcohol Use History: None Reported Additional Past Alcohol Use History / Comment(s): Quit Smoking 07/2015, 1PPD - Smoked ON AND OFF for APPROX 40 yrs Past Drug Use History: None Reported Additional Drug Use History / Comment(s): INSTRUCTED TO WITHOLD 24 HRS PRIOR TO PROCEDURE - Past Family History Mother Family Medical History: No Reported History Brother(s) Family Medical History: Cancer Sister(s) Family Medical History: No Reported History Daughter(s) Family Medical History: No Reported History Father Family Medical History: Cancer Additional Family Medical History / Comment(s): PROSTATE Medications and Allergies Home Medications Medication Instructions Recorded Confirmed Type ALPRAZolam [Alprazolam] 0.25 mg PO BID PRN 06/23/16 01/26/24 History Pramipexole [Mirapex] 0.125 mg PO BID PRN 06/23/16 01/26/24 History Pramipexole [Mirapex] 0.125 mg PO HS 03/10/23 01/26/24 History Fish Oil/Dha/Epa [Fish Oil 1,200 1 cap PO BID 01/26/24 01/26/24 History mg Fish Oil] Losartan Potassium 100 mg PO DAILY 01/26/24 01/26/24 History Multivitamin (No Iron) 1 tab PO DAILY 01/26/24 01/26/24 History Naproxen Sodium [Aleve] 440 mg PO DAILY 01/26/24 01/26/24 History Omeprazole 20 mg PO HS 01/26/24 01/26/24 History amLODIPine [Norvasc] 5 mg PO HS 01/26/24 01/26/24 History oxyCODONE HCL [OxyIR] 5 mg PO TID PRN 01/26/24 01/26/24 History Allergies Allergy/AdvReac Type Severity Reaction Status Date / Time No Known Allergies Allergy Verified 01/26/24 17:54 Physical Examination Osteopathic Statement: *. No significant issues noted on an osteopathic structural exam other than those noted in the History and Physical/Consult. PHYSICAL EXAM: General: AOX3, NAD, Well hydrate, Well nourished HEENT: No lumps or masses Extremities: No color changes, no pooling INTEGUMENT: Appearance: Normal color and turgor Surgical Incisions: NA Hairy Patches: ABSENT Dorsal Skin Dimples: Normal [employer] spots: ABSENT PALPATION: (TTP) Midline: NO Paracervical: YES Parathoracic: NO Paralumbar: YES SIJ TESTING: Tested -TTP YES BILATERAL -Fortins Finger: NEGATIVE BILATERAL POSTURAL BALANCE: -Coronal: BALANCED -Sagittal: BALANCED -Shoulder height: LEVEL -Pelvic Girdle: LEVEL ROM AND APPEARANCE: Neck: RESTRICTED Lumbar: RESTRICTED Shoulders: Symmetrical Hips: Symmetrical Knees: Symmetrical Hands: Symmetrical Feet: Symmetrical VASCULAR STATUS: RUE- 2 LUE-2 RLE-2 LLE-2 Edema: NONE NEUROLOGICAL EXAMINATION: Mental Status: Awake, alert, oriented fully with normal attention, concentration and memory. Fluent appropriate speech. CRANIAL NERVES: I: Olfactory not tested. II: Visual acuity normal, no visual field deficit noted with confrontation. III,IV: Normal pupillary reflexes & intact extraocular movements without nystagmus. V,: Intact symmetrical facial sensation. VII: Intact symmetrical facial motor movementVIII: Hearing intact. IX,X: Intact gag, swallow, & normal voice. XI: Sternocleidomastoid, trapezius function intact. XII: Tongue midline with normal movements. TENSIONING: L'HERMITTE'S SIGN: NEGATIVE SPURLING'S SIGN: POSITIVE CUBITAL COMPRESSION: NEGATIVE TINEL'S AT WRIST: NEGATIVE SLR:POSITIVE BILATERAL CROSSED SLR: POSITIVE MOTOR EXAM (0-5/5, NT) Muscle appearance: PT HAS B/L MUSCLE WASTING OF THE FIRST WEBSPACE OF HANDS WELL FOREARM MUSCLE WASTING AND RIGHT TRICEP MUSCLE WASTING NOTED. B/L LE SHOW CALF ATROPHY WELL QUAD ATROPHY. UPPER EXTREMITY RIGHT LEFT SHOULDER ABDUCTION 4 4 BICEP 4 4 TRICEP 3 4 WRIST EXTENSION 3 3 INTRINSICS 3 3 COLLAR FELLER 3 3 LOWER EXTREMITY HIP FLEXION 3 3 KNEE FLEXION 3 3 KNEE EXTENSION 3 3 DORSIFLEXION 3 3 PLANTAR FLEXION 3 3 EHL 3 2 FHL 3 3 REFLEXES (0-4/2, NT): RIGHT LEFT BICEP 3+ 3+ TRICEP 3+ 3+ BRACHIORADIALIS 3+ 3+ PATELLAR 3+ 3+ ACHILLES 3+ 3+ PATHOLOGICAL REFLEXES: RIGHT LEFT HOFFMANS PRESENT PRESENT CLONUS PRESENT PRESENT BABINSKI ABSENT ABSENT Rectal Tone: INTACT SENSATION (0-4, NT): Intact to light touch and pain sensation to C5-T1 as well as L2-S2 except that noted below Hyperesthesia: ABSENT Dermatomal deficit: YES Levels: L1-S1 BILATERAL GAIT AND FUNCTIONAL EVALUATION: -Ambulatory aids YES Wheelchair -Rombergs test NT -Hand and finger dexterity intact bilaterally? NO -Dysdiadochokinesia examination negative bilaterally? NO -Toe heel walk / heel-toe walk intact while maintaining satisfactory balance? NO -Squatting/straightening w/o assistance to a min of 60 degree knee flexion? NO -Single leg stance: NOT ABLE -Trendelenburg sign NT Results XRAY Date: Jan 24, 2024 Region:Cervical Location: [facility] Views: AP/LAT/FLEX/EXT/OB FINDINGS: Images reviewed with patient in office These demonstrate a Grade II to Grade III spondylolisthesis due to spondylolysis of L5-S1. There is severe disc collapse, severe b/l foraminal stenosis as well as deformity associated with this. There is retrolisthesis, grade I of L4-5 with severe facet arthropathy and hypertrophy, pars defect and hypertrophy noted as well. NO fractures noted. NO lesions noted. AP pelvis shows no fractures. MRI Date: Dec 21, 2023 Region: Lumbar Location: Outside Facility Contrast: YES FINDINGS: Images reviewed with patient in office These demonstrate a Grade II to Grade III spondylolisthesis due to spondylolysis of L5-S1. There is severe disc collapse, severe b/l foraminal stenosis as well as deformity associated with this. There is retrolisthesis, grade I of L4-5 along with HNP, disc collapse and central stenosis related with facet arthropathy and hypertrophy. There are no fractures noted. There is L1-2 spondylosis with disc collapse and moderate central stenosis. MRI Date: Jan 26, 2024 Region: Cervical Location: [facility] Contrast: NO FINDINGS: Images reviewed demonstrate multilevel spondylosis with HNP and severe stenosis C3-7 with severe cord signal changes at every level along with foraminal stenosis. There are pincer lesions at C3-7 levels with severe central stenosis noted. Flattened CL due to collapse of disc spaces as well as spondylosis. Severe facet arthrosis noted. No fractures. No lesions C0-1 and C1-2 stable. - Labs Labs: Abnormal Lab Results - Last 24 Hours (Table) 01/26/24 01/26/24 Range/Units 17:12 17:12 RBC 4.26 L (4.30-5.90) m/uL Chloride 108 H (98-107) mmol/L BUN 21 H (9-20) mg/dL H & H 01/26/24 Range/Units 17:12 Hgb 14.6 (13.0-17.5) gm/dL Hct 41.8 (39.0-53.0) % Result Diagrams: 01/26/24 17:12 01/26/24 17:12 Assessment and Plan (1) Cervical myelopathy Current Visit: Yes Status: Acute Code(s): G95.9 - DISEASE OF SPINAL CORD, UNSPECIFIED SNOMED Code(s): 327134290 (2) Cervical stenosis of spine Current Visit: Yes Status: Acute Code(s): M48.02 - SPINAL STENOSIS, CERVICAL REGION SNOMED Code(s): 73809124 (3) Quadriplegia and quadriparesis Current Visit: Yes Status: Acute Code(s): G82.50 - QUADRIPLEGIA, UNSPECIFIED SNOMED Code(s): 89920693170616 (4) Upper extremity weakness Current Visit: Yes Status: Acute Code(s): R29.898 - OTH SYMPTOMS AND SIGNS INVOLVING THE MUSCULOSKELETAL SYSTEM SNOMED Code(s): 450212928 (5) Lower extremity weakness Current Visit: Yes Status: Acute Code(s): R29.898 - OTH SYMPTOMS AND SIGNS INVOLVING THE MUSCULOSKELETAL SYSTEM SNOMED Code(s): 313478078 (6) Cervical spondylosis with myelopathy Current Visit: Yes Status: Acute Code(s): M47.12 - OTHER SPONDYLOSIS WITH MYELOPATHY, CERVICAL REGION SNOMED Code(s): 133051246 (7) Cervical spondylosis with myelopathy and radiculopathy Current Visit: Yes Status: Acute Code(s): M47.12 - OTHER SPONDYLOSIS WITH MYELOPATHY, CERVICAL REGION; M47.22 - OTHER SPONDYLOSIS WITH RADICULOPATHY, CERVICAL REGION SNOMED Code(s): 932829013 Plan: * Admit to hospital * Medicine consult for management and clearance for surgical intervention * CT of the cervical spine * Decadron 10 mg followed by 4q4h * Pain control PRN * Plan for surgical intervention in a staged manner due to severe stenosis, cervical myelopathy and progressive weakness with inability to ambulate. * Monday01/29/24 ACDF C3-7. 02/01/24 Posterior C2-T2 decompression and fusion.
[2024-01-26] MEDS ORDERED: NON FORMULARY DRUG (Fish Oil/Dha/Epa [Fish Oil 1,200 Mg Fish Oil] 1 EACH Capsule) PO SCH (21:00)
[2024-01-26] MEDS: PANTOPRAZOLE 40 MG TABLET PO SCH (21:31)
[2024-01-26] MEDS: amLODIPine 5 MG TAB PO SCH (21:31)
[2024-01-26] MEDS: PRAMIPEXOLE 0.125 MG TAB PO SCH (21:55)
[2024-01-27] MEDS: LOSARTAN 50 MG TAB PO SCH (09:08)
[2024-01-27] MEDS: MULTIVITAMINS, THERA 1 EACH TAB PO SCH (09:08)
[2024-01-27] MEDS: ACETAMINOPHEN TAB 325 MG TAB PO PRN (09:44)
--- NOTE | 2024-01-27 12:07 | P.PN ---
Subjective Progress Note Date: 01/27/24 Principal diagnosis: Bilateral upper and lower extremity weakness, multilevel cervical spondylosis, cervical stenosis, bilateral upper and lower extremity radiculopathy, cervical myelopathy Patient was evaluated today at bedside, he had multiple family members present. Patient is resting comfortably in bed. Patient's symptoms remain about the same with regards to the bilateral upper and lower extremity weakness along with the numbness and tingling to the bilateral upper and lower extremities. He denies any significant numbness or tingling to the genital or perineal region, he is able to urinate with no issues. Patient is very eager for surgery later on this week. Objective - Vital Signs Vital signs: Vital Signs Temp 97.9 F 01/27/24 07:44 Pulse 85 01/27/24 07:44 Resp 16 01/27/24 07:44 BP 138/97 01/27/24 07:44 Pulse Ox 95 01/27/24 07:44 FiO2 Intake & Output 01/26/24 01/27/24 01/27/24 18:59 06:59 18:59 Intake Total 658 Output Total 950 Balance -292 Weight 71.214 kg 71.214 kg Intake: Oral 658 Output: Urine 950 Other: Voiding Method Urinal Urinal - Exam Gen: AOx3, NAD VSS stable at this time Integument: No open lesions or sores are visualized throughout the cervical spine Palpation: Tenderness with palpation of the paraspinal cervical region ROM: Chronic right shoulder rotator cuff issues, he is very limited with elevation and abduction. Full range of motion in all major muscle groups of the bilateral lower extremities Sensory Exam: Senory exam to light touch is intact C5-T1 Senosry exam to light touch is intact L2-S1 Motor: 4/5 strength appreciated in the bilateral upper extremities with shoulder elevation, shoulder abduction, elbow flexion, 3/5 strength appreciated bilateral upper extremities with elbow extension, wrist extension, intrinsics, mat worker 3/5 strength appreciated bilateral lower extremities with hip flexion, knee extension, knee flexion, plantarflexion, dorsiflexion, EHL, FHL Reflexes: 3/4 in all UE and LE Positive Melodie's and clonus appreciated bilaterally - Labs CBC & Chem 7: 01/26/24 17:12 01/26/24 17:12 Labs: Abnormal Lab Results - Last 24 Hours (Table) 01/26/24 01/26/24 Range/Units 17:12 17:12 RBC 4.26 L (4.30-5.90) m/uL Chloride 108 H (98-107) mmol/L BUN 21 H (9-20) mg/dL Assessment and Plan Assessment: Cervical myelopathy Multilevel cervical spondylosis Cervical stenosis Multilevel cervical foraminal stenosis Bilateral upper and lower extremity weakness Plan: Patient is scheduled for a two-stage procedure, the first being an ACDF of C3-C7 on 01/29/2024. Patient will then be scheduled for the second aspect of the procedure later in the week this being a posterior C2-T2 decompression and fusion. I was able to briefly discuss more the surgical procedure, this to include the remaining perioperative, preoperative and postoperative phases with the patient and family. They are all in good understanding would like to continue with current plan Pain control, continue current medications GI DVT prophylaxis, continue RINA hose and compression stockings at this time Monitor for urinary retention, okay to utilize urinary catheter if needed Medical recommendations and clearance is appreciated Will continue to follow patient during hospital stay Time with Patient: Less than 30
--- NOTE | 2024-01-27 16:13 | P.CONS ---
History of Present Illness - Reason for Consult Consult date: 01/27/24 - History of Present Illness History of present illness: 73-year-old male patient with past medical history significant for hypertension, osteoarthritis, GERD, history of pancreatic cancer status post chemotherapy and Whipple's procedure in 2016, history of heart murmur who was following orthopedic for worsening low back pain and progressive difficulty in ambulation since August. Patient does not remember any inciting event in the epidural, patient reported that he he noted that towards the end of the month he was losi ng the ability to walk. Patient felt his legs were progressively getting more wobbly, was also feeling more unsteady, reported losing his balance and also was unable to hold onto objects. Patient stated that he has been seen by [facility] and physical therapy without much relief. Patient had MRI of brain and lower back. MRI lower back showed L5-S1 spondylosis with listhesis. Patient reported bilateral lower extremity weakness, numbness, tingling as well as medial thigh numbness and tingling. Patient also reported weakness of upper extremities. Patient also had MRI of the neck done and read alert was sent to orthopedics and patient was advised to come to the ED. REVIEW OF SYSTEMS: CONSTITUTIONAL: No fever, no malaise, no fatigue. HEENT: No recent visual problems or hearing problems. Denied any sore throat. CARDIOVASCULAR: No chest pain, orthopnea, PND, no palpitations, no syncope. PULMONARY: No shortness of breath, no cough, no hemoptysis. GASTROINTESTINAL: No diarrhea, no nausea, no vomiting, no abdominal pain. NEUROLOGICAL: Complains of upper and lower extremity weakness, complains of lower extremity numbness. Back pain. HEMATOLOGICAL: Denies any bleeding or petechiae. GENITOURINARY: Denies any burning micturition, frequency, or urgency. MUSCULOSKELETAL/RHEUMATOLOGICAL: Denies any joint pain, swelling, or any muscle pain. ENDOCRINE: Denies any polyuria or polydipsia. The rest of the 14-point review of systems is negative. PHYSICAL EXAMINATION: GENERAL: The patient is A&O x3, NAD HEENT: EOMI, Sclerae anicteric, Moist Mucous membranes Neck: Supple, Non tender, No JVD PULMONARY: Equal breath souds B/L, No wheezing, No crackles. CARDIOVASCULAR: S1, S2 present. No murmurs, rubs, or gallops. ABDOMEN: Soft, nontender, nondistended, normoactive bowel sounds. No guarding or rebound tenderness. MUSCULOSKELETAL: No edema, No cyanosis. No clubbing. Normal ROM. Intact peripheral pulses. EXTREMITIES: No cyanosis, clubbing, or pedal edema. NEUROLOGICAL: CN 2-12 grossly intact. Motor strength: 3+/5 BUE, 3/ 5 BLE Assessment and plan: Cervical stenosis with myelopathy and radiculopathy: Bilateral upper and lower extremity weakness: Presented with lower extremity weakness and numbness, chronic back pain, upper extremity weakness progressively getting worse. MRI lumbar spine showed L5-S1 spondylosis with listhesis. MRI cervical spine:Images reviewed demonstrate multilevel spondylosis with HNP and severe stenosis C3-7 with severe cord signal changes at every level along with foraminal stenosis. There are pincer lesions at C3-7 levels with severe central stenosis noted. Flattened CL due to collapse of disc spaces as well as spondylosis. Severe facet arthrosis noted. No fractures. No lesions C0-1 and C1-2 stable. Monitor with neurochecks Decadron Pain control as needed Management per orthopedicplan for staged surgical intervention Monday01/29/24 ACDF C3-7. 02/01/24 Posterior C2-T2 decompression and fusion. Hypertension: Continue amlodipine, losartan. History of pancreatic cancer: GERD: DVT prophylaxis Per primary Monitor vital signs and labs Continue telemetry monitoring Labs and medication were reviewed. Continue same treatment. Resume home medication. Further recommendations as per clinical course of the patient Dictation was produced using [employer] dictation software. please excuse any grammatical, word or spelling errors. Past Medical History Past Medical History: Cancer, GERD/Reflux, Hypertension, Osteoarthritis (OA) Additional Past Medical History / Comment(s): DEAF LEFT EAR, RESTLESS LEG, Chronic Back Pain. Positive lymph node had whipple procedure 08/13/15. CHEMO [place], LAST 12/28/15. HX OF ULCER. SKIN CA EXC FROM CHEST. HX OF PANCREATIC CA. hx perforated bowel- sugery. heart murmur , rt shoulder pain with decreased ROM History of Any Multi-Drug Resistant Organisms: None Reported Past Surgical History: Cholecystectomy Additional Past Surgical History / Comment(s): PORT A CATH LEFT CHEST- removed, NAI EYE CATARACT, nai feet plantar fasciitis surgery, right thumb surgery from previous injury, Whipple procedure 08/13/15, HX OF PERF BOWEL FROM ULCER Past Anesthesia/Blood Transfusion Reactions: No Reported Reaction Past Psychological History: No Psychological Hx Reported Smoking Status: Former smoker Past Alcohol Use History: None Reported Past Drug Use History: None Reported - Past Family History Mother Family Medical History: No Reported History Brother(s) Family Medical History: Cancer Sister(s) Family Medical History: No Reported History Daughter(s) Family Medical History: No Reported History Father Family Medical History: Cancer Additional Family Medical History / Comment(s): PROSTATE Medications and Allergies Home Medications Medication Instructions Recorded Confirmed Type ALPRAZolam [Alprazolam] 0.25 mg PO BID PRN 06/23/16 01/26/24 History Pramipexole [Mirapex] 0.125 mg PO BID PRN 06/23/16 01/26/24 History Pramipexole [Mirapex] 0.125 mg PO HS 03/10/23 01/26/24 History Fish Oil/Dha/Epa [Fish Oil 1,200 1 cap PO BID 01/26/24 01/26/24 History mg Fish Oil] Losartan Potassium 100 mg PO DAILY 01/26/24 01/26/24 History Multivitamin (No Iron) 1 tab PO DAILY 01/26/24 01/26/24 History Naproxen Sodium [Aleve] 440 mg PO DAILY 01/26/24 01/26/24 History Omeprazole 20 mg PO HS 01/26/24 01/26/24 History amLODIPine [Norvasc] 5 mg PO HS 01/26/24 01/26/24 History oxyCODONE HCL [OxyIR] 5 mg PO TID PRN 01/26/24 01/26/24 History Allergies Allergy/AdvReac Type Severity Reaction Status Date / Time No Known Allergies Allergy Verified 01/26/24 17:54 Physical Exam Vitals: Vital Signs Temp Pulse Resp BP Pulse Ox 01/27/24 12:40 97.8 F 62 16 131/75 95 01/27/24 07:44 97.9 F 85 16 138/97 95 01/27/24 02:50 98.2 F 70 16 125/75 94 L 01/26/24 23:02 14 01/26/24 19:17 98.0 F 58 L 18 154/81 98 Intake and Output 08/31/24 08/31/24 08/31/24 06:59 14:59 22:59 Intake Total 658 Output Total 950 450 200 Balance -292 -450 -200 Intake: Oral 658 Output: Urine 950 450 200 Other: Voiding Method Urinal # Bowel Movements 1 Results CBC & Chem 7: 01/26/24 17:12 01/26/24 17:12 Labs: Abnormal Lab Results - Last 24 Hours (Table) 01/26/24 01/26/24 Range/Units 17:12 17:12 RBC 4.26 L (4.30-5.90) m/uL Chloride 108 H (98-107) mmol/L BUN 21 H (9-20) mg/dL
--- NOTE | 2024-01-28 12:45 | P.PN ---
Subjective Progress Note Date: 01/28/24 Principal diagnosis: Bilateral upper and lower extremity weakness, multilevel cervical spondylosis, cervical stenosis, bilateral upper and lower extremity radiculopathy, cervical myelopathy Patient was evaluated today at bedside. Patient is resting comfortably in bed. Patient's symptoms remain about the same with regards to the bilateral upper and lower extremity weakness along with the numbness and tingling to the bilateral upper and lower extremities. He denies any significant numbness or tingling to the genital or perineal region, he is able to urinate with no issues. Denies any headaches, lightheadedness, chest pain or shortness of breath. Objective - Vital Signs Vital signs: Vital Signs Temp 97.8 F 01/28/24 07:15 Pulse 59 L 01/28/24 07:15 Resp 16 01/28/24 07:15 BP 147/78 01/28/24 07:15 Pulse Ox 92 L 01/28/24 07:15 FiO2 Intake & Output 01/27/24 01/28/24 01/28/24 18:59 06:59 18:59 Output Total 650 925 Balance -650 -925 Output: Urine 650 925 Other: Voiding Method Urinal Urinal # Voids 2 # Bowel Movements 1 - Exam Gen: AOx3, NAD VSS stable at this time Integument: No open lesions or sores are visualized throughout the cervical spine Palpation: Tenderness with palpation of the paraspinal cervical region ROM: Chronic right shoulder rotator cuff issues, he is very limited with elevation and abduction. 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 after midnight tonight Pain control, continue current medications GI DVT prophylaxis, continue RINA hose and compression stockings at this time Monitor for urinary retention, okay to utilize urinary catheter if needed Medical recommendations and clearance is appreciated PT/OT after surgery Will continue to follow patient during hospital stay Time with Patient: Less than 30
--- NOTE | 2024-01-28 15:26 | P.PN ---
Subjective Progress Note Date: 01/28/24 Interval History: 73-year-old male patient with past medical history significant for hypertension, osteoarthritis, GERD, history of pancreatic cancer status post chemotherapy and Whipple's procedure in 2016, history of heart murmur who was following orthopedic for worsening low back pain and progressive difficulty in ambulation since August. Patient does not remember any inciting event in the epidural, p sherry reported that he he noted that towards the end of the month he was losing the ability to walk. Patient felt his legs were progressively getting more wobbly, was also feeling more unsteady, reported losing his balance and also was unable to hold onto objects. Patient stated that he has been seen by [facility] and physical therapy without much relief. Patient had MRI of brain and lower back. MRI lower back showed L5-S1 spondylosis with listhesis. Patient reported bilateral lower extremity weakness, numbness, tingling as well as medial thigh numbness and tingling. Patient also reported weakness of upper extremities. Patient also had MRI of the neck done and read alert was sent to orthopedics and patient was advised to come to the ED. 01/27--patient was seen and examined today. No issues overnight. Vital stable. Blood pressure 147/78. Saturating 92% on room air. Assessment and plan: Cervical stenosis with myelopathy and radiculopathy: Bilateral upper and lower extremity weakness: Presented with lower extremity weakness and numbness, chronic back pain, upper extremity weakness progressively getting worse. MRI lumbar spine showed L5-S1 spondylosis with listhesis. MRI cervical spine:Images reviewed demonstrate multilevel spondylosis with HNP and severe stenosis C3-7 with severe cord signal changes at every level along with foraminal stenosis. There are pincer lesions at C3-7 levels with severe central stenosis noted. Flattened CL due to collapse of disc spaces as well as spondylosis. Severe facet arthrosis noted. No fractures. No lesions C0-1 and C1-2 stable. Monitor with neurochecks Decadron Pain control as needed Management per orthopedicplan for staged surgical intervention Monday01/29/24 ACDF C3-7. 02/01/24 Posterior C2-T2 decompression and fusion. Renal function stable, no cardiac history, patient asymptomatic, okay to proceed with surgical intervention. Hypertension: Continue amlodipine, losartan. History of pancreatic cancer: GERD: DVT prophylaxis Per primary PHYSICAL EXAMINATION: GENERAL: The patient is A&O x3, NAD HEENT: EOMI, Sclerae anicteric, Moist Mucous membranes Neck: Supple, Non tender, No JVD PULMONARY: Equal breath souds B/L, No wheezing, No crackles. CARDIOVASCULAR: S1, S2 present. No murmurs, rubs, or gallops. ABDOMEN: Soft, nontender, nondistended, normoactive bowel sounds. No guarding or rebound tenderness. MUSCULOSKELETAL: No edema, No cyanosis. No clubbing. Normal ROM. Intact peripheral pulses. EXTREMITIES: No cyanosis, clubbing, or pedal edema. NEUROLOGICAL: CN 2-12 grossly intact. No FND Skin: No Rash REVIEW OF SYSTEMS: CONSTITUTIONAL: No fever or chills. CARDIOVASCULAR: No chest pain, palpitations or syncope. PULMONARY: No shortness of breath, no cough, sore throat. GASTROINTESTINAL: No nausea, vomiting, diarrhea, abdominal pain. : No Dysuria, urgency, frequency. Extremities: No edema. NEUROLOGICAL: No headaches, no weakness, or numbness Dictation was produced using [employer] dictation software. please excuse any grammatical, word or spelling errors. Objective - Vital Signs Vital signs: Vital Signs Temp 97.8 F 01/28/24 07:15 Pulse 59 L 01/28/24 07:15 Resp 16 01/28/24 07:15 BP 147/78 01/28/24 07:15 Pulse Ox 92 L 01/28/24 07:15 FiO2 Intake & Output 01/27/24 01/28/24 01/28/24 18:59 06:59 18:59 Output Total 650 925 425 Balance -916 -922 -970 Output: Urine 650 925 425 Other: Voiding Method Urinal Urinal # Voids 2 # Bowel Movements 1 - Labs CBC & Chem 7: 01/26/24 17:12 01/26/24 17:12
--- NOTE | 2024-01-29 08:21 | P.PN ---
Progress Note - Text Progress Note Date: 01/29/24 Spine Surgery Clinical and Risk Review Bruce Banerjee is a [Demographic] presenting for evaluation of [chief complaint] . It was my pleasure to have seen and examined Bruce Banerjee. In our visit today we have had a chance to go over subjective complaints, physical examination findings and treatments including the natural course history without intervention and various interventional options. The patients imaging demonstrates severe cervical stenosis due to spondylosis, HNP and spondylolisthesis of C4-5, C5-6, C6-7. There is disc height collapse, facet arthropathy that contribute. There are pincer lesions at each level causing severe stenosis along with mylomalacial changes at these levels that is severe. No fracture or lesion otherwise noted. On physical exam, Bruce Banerjee demonstrates Cervical myelopathy, inability to ambulate for the last two months, increased clumbsiness, inability to perform ADLs on his own that is progressive. Progressive decline in fine motor skills, muscle wasting of intrinsic hands and arms. Atropy and weakness of UE and LE BL. Gait imbalance. 4/5 UE and LE with 3/5 computer assistant and tricep as well as shoulder abduction. +Burgos's BL; +clonus b/l; Neg Babinski. Diadokinesis not intact. Dexterity not intact. Dermatomal deficits including C3-7 global and L4-S1 due to lumbar pathology as well simultaneously. I have explained to the patient that as their condition progresses it will cause further neurological deficits and eventual paralysis. Based on the patients imaging, physical exam, and the rapid progression and disabling nature of their symptoms, at this time I recommend surgery in the form or a: Stage I: C3-7 ANTERIOR CERVICAL DISCECTOMY AND FUSION WITH STAGE II: C2-T2 DECOMPRESSION AND FUSION. I discussed the risk and benefits of this procedure at length with Bruce Banerjee. The patient and family agreed to considered pursuing the procedure abovementioned. Prior to surgery, she should follow up with her PCP (Cardio, ID, IM etc) for clearance. Questions were invited and answered, and the patient wishes to proceed as outlined below. Currently, I am recommendin. Stage I: C3-7 ANTERIOR CERVICAL DISCECTOMY AND FUSION WITH STAGE II: C2-T2 DECOMPRESSION AND FUSION 2. Follow up with PCP for surgical clearance 3. Review of surgical risks and benefits as well as an educational packet on the proposed surgical procedure. Risks: All surgical procedures come with inherent risks, including those related to positioning, anesthesia, intraoperative findings, and postoperative complications. It is important to understand that surgery does not come with any guarantee of a successful outcome as complications and adverse events are always possible. The patient was given a handout in office today discussing the surgical procedure and risks associated with the intervention, both of which were discussed with the patient. These risks include but are not limited to the following: * Experiencing same, different or even worse symptoms in back, neck, arms, or legs compared to before surgery. * Requiring further surgery or other forms of treatment presently or at some time in the future at same or other levels of the intended spine surgery. * On an extreme but fortunately relatively rare basis severe complication such as blindness, stroke, heart attack, temporary and/or permanent nerve injury, paralysis, coma, or may occur, sometimes without known explanation. * Surgical complications may include but are not limited to risk of infection, fluid accumulation in the surgical dissection site, including a seroma or hematoma, that requires additional surgery, wound drainage, bleeding, new numbness or weakness, vision changes/loss, spinal fluid leakage, non-healing and/or infected incision, headaches, difficulty or inability to swallow, hoarseness, hemopneumothorax, pneumothorax, impotence, retrograde ejaculation, vaginal dryness; injury to nerves, spinal cord, blood vessels, lymphatics or other vital organs (i.e., bowel injury, injury to the great vessels); heterotopic bone formation; complications related to the hardware such as screws, rods, cages including misplaced hardware, device failure, instrumentation at the wrong spine level, hardware fracture/breakage, or hardware loosening; vertebral failure of the spinal column above or below the newly placed hardware; retained surgical instrumentations or devices and the need for further surgery. * Medical risks of the planned spine surgery include but are not limited to generalized Infections to the whole body or local areas outside of the surgical site (sepsis), heart attack, bleeding, anaphylaxis, meningitis, seizure, epilepsy, hearing loss, burn gardner, laceration of the head or other areas of the body, bruising, hypersensitivity of the skin, bladder over distension; allergic reaction; shoulder injury related to positioning; fat, blood and air clots to other areas of the body like heart, lungs, brain; failure of internal organs such as lungs, kidneys, liver and excessive bleeding. If blood transfusions are necessary, note that transfusions may cause intolerance reactions such as anaphylaxis or other complex reactions. * Despite best efforts, the results of spine surgery might not heal in terms of bone, soft tissues such as skin, fascia, ligaments, and joints. Additionally, in order to achieve best possible results, spine surgery may be carried out beyond the initially planned levels and involve decompression, fusion including insertion of hardware at levels other than the original intended area of surgical interest change some portions of the procedure in order to ensure the best possible outcomes. * With spine surgery and spinal fusion, there are different off label uses of instrumentation (devices, implants and hardware) as well as biological substances (bone morphogenic proteins, demineralized bone matrix) as well as using extra bone from allograft sources (i.e. cadaver bone) or autograft (iliac crest bone, ribs, or the spine itself). The patient has been given information about these practices and their inherent risks and benefits. The patient has had a chance to review all the listed information, has been given print outs detailing this information, and has had all his/her questions answered to their satisfaction. It was my pleasure to have seen and examined Bruce Banerjee. In our visit today we have had a chance to go over my understanding of our patient's current condition, the natural course history without intervention and various interventional options. Questions were invited and answered, and the patient wishes to proceed as outlined above. I have seen and examined the patient for 25 minutes and we have spent more than 50% of the time in repeat and detailed counseling about the patient's condition, its natural course history with out and as much as can be predicted with surgery and re-review of various surgical treatment options. In conclusion, Bruce Banerjee and family requested we proceed with the above suggested surgery and are willing to accept risks and limitations of the sugge sted surgery as nature of the disease process and our best attempts at treatment for the condition. Thank you again for allowing us to be part of your patient's care. Please don't hesitate to contact me if you have any further questions. Signed and authenticated by: [facility] [address] [facility], [address] [address]
[2024-01-29] MEDS ORDERED: LIDOCAINE 1% INJ 10MG/ML (20 ML MDV) ONE (09:16)
[2024-01-29] MEDS ORDERED: DEXAMETHASONE SOD PHOSPHATE 10 MG/ML 1 ML VIAL ONE (09:16)
[2024-01-29] MEDS ORDERED: ROCURONIUM 10 MG/ML (5 ML VIAL) IV ONE (09:16)
[2024-01-29] MEDS ORDERED: TRANEXAMIC 1,000 MG/100ML-NACL PREMIX BAG ONE (09:16)
[2024-01-29] MEDS ORDERED: KETAMINE HCL IN 0.9 % NACL 50 MG/5 ML SYRINGE ONE (09:16)
[2024-01-29] MEDS ORDERED: fentaNYL (PF) 50 MCG/ML 2 ML AMP ONE (09:16)
[2024-01-29] MEDS ORDERED: ePHEDrine 50 MG/ML 1 ML VIAL ONE (09:16)
[2024-01-29] MEDS ORDERED: SUCCINYLCHOLINE CHLORIDE 200 MG/10 ML VIAL IV ONE (09:16)
[2024-01-29] MEDS ORDERED: PROPOFOL 10 MG/ML 20 ML VIAL IV ONE (09:16)
--- NOTE | 2024-01-29 12:24 | FL ---
Fluoroscopic guidance the operating room. HISTORY: Anterior cervical fusion. COMPARISON: None. 34 seconds of fluoroscopy was provided for the purposes of anterior cervical fusion. No spot films we re obtained.
--- NOTE | 2024-01-29 12:27 | XR ---
Cervical spine, limited. HISTORY: intraoperative spot films of the cervical spine. COMPARISON: None TECHNIQUE: 4 intraoperative spot films of the thoracic spine were obtained in the lateral and AP proj ections. FINDINGS: Spot films demonstrate interbody and anterior cervical fusion from C3 through C7. IMPRESSION: Intraoperative spot films demonstrating cervical fusion
--- NOTE | 2024-01-29 12:36 | P.OP ---
Date of Procedure: 01/29/24 Preoperative Diagnosis: Current Active Problems Cervical myelopathy (Acute) Cervical stenosis of spine (Acute) Quadriplegia and quadriparesis (Acute) Upper extremity weakness (Acute) Lower extremity weakness (Acute) Cervical spondylosis with myelopathy (Acute) Cervical spondylosis with myelopathy and radiculopathy (Acute) Postoperative Diagnosis: Current Active Problems Cervical myelopathy (Acute) Cervical stenosis of spine (Acute) Quadriplegia and quadriparesis (Acute) Upper extremity weakness (Acute) Lower extremity weakness (Acute) Cervical spondylosis with myelopathy (Acute) Cervical spondylosis with myelopathy and radiculopathy (Acute) Procedure(s) Performed: * C3-4 ANTERIROR CERVICAL ARTHRODESIS * C4-5 ANTERIROR CERVICAL ARTHRODESIS * C5-6 ANTERIROR CERVICAL ARTHRODESIS * C6-7 ANTERIROR CERVICAL ARTHRODESIS * C3-7 ANTERIOR INSTRUMENTATION * INSERTION OF BIOMECHANICAL DEVICES C3-7, CAGES X4 USE OF IONM USE OF IO MICROSCOPE CPTMOD 22 THIS CASE TOOK 75% LONGER THAN EXPECTED DUE TO CORMORBID CONDITIONS, EXTENT OF CERVICAL DISEASE AND HIGH TECHNICALITY OF THE CASE. Implants: -KENYON ANKER C CAGES 8 MMX4 -16MM, 14MM, 12MM SCREW PLATE INTERFACE -JULIO, DBM, AUTOGRAFT Anesthesia: GETA Surgeon: Og Piedra Truck Assembler #1: Rc Reddy (WAS PRESENT AND ASSISTED WITH ALL ASPECTS OF THE CASE FROM POSITION TO DRESSING PLACEMENT) Estimated Blood Loss (ml): 100 IV fluids (ml): 1,200 Urine output (ml): 300 Pathology: none sent Condition: stable Disposition: PACU Indications for Procedure: Bruce Banerjee is a 73 yo male presenting for evaluation of inability to ambulate, decreased dexterity. It was my pleasure to have seen and examined Bruce Banerjee. In our visit today we have had a chance to go over subjective complaints, physical examination findings and treatments including the natural course history without intervention and various interventional options. The patients imaging demonstrates severe cervical stenosis due to spondylosis, HNP and spondylolisthesis of C4-5, C5-6, C6-7. There is disc height collapse, facet arthropathy that contribute. There are pincer lesions at each level causing severe stenosis along with mylomalacial changes at these levels that is severe. No fracture or lesion otherwise noted. On physical exam, Bruce Banerjee demonstrates Cervical myelopathy, inability to ambulate for the last two months, increased clumbsiness, inability to perform ADLs on his own that is progressive. Progressive decline in fine motor skills, muscle wasting of intrinsic hands and arms. Atropy and weakness of UE and LE BL. Gait imbalance. 4/5 UE and LE with 3/5 cmm programmer and tricep as well as shoulder abduction. +Burgos's BL; +clonus b/l; Neg Babinski. Diadokinesis not intact. Dexterity not intact. Dermatomal deficits including C3-7 global and L4-S1 due to lumbar pathology as well simultaneously. I have explained to the patient that as their condition progresses it will cause further neurological deficits and eventual paralysis. Based on the patients imaging, physical exam, and the rapid progression and disabling nature of their symptoms, at this time I recommend surgery in the form or a: Stage I: C3-7 ANTERIOR CERVICAL DISCECTOMY AND FUSION WITH STAGE II: C2-T2 DECOMPRESSION AND FUSION. I discussed the risk and benefits of this procedure at length with Bruce Banerjee. The patient and family agreed to considered pursuing the procedure abovementioned. Prior to surgery, she should follow up with her PCP (Cardio, ID, IM etc) for clearance. Questions were invited and answered, and the patient wishes to proceed as outlined below. Currently, I am recommendin. Stage I: C3-7 ANTERIOR CERVICAL DISCECTOMY AND FUSION WITH STAGE II: C2-T2 DECOMPRESSION AND FUSION Description of Procedure: C3-7 ACDF The patient was seen and examined in the preoperative area. All preoperative protocols were followed. Informed consent was obtained, risks and benefits of the procedure were discussed at length. Risks including bleeding infection damage to the surrounding tissue and risk of reoperation were discussed with the patient. Risk of anesthesia up to and including was discussed with the patient. These are outlined in the risk review. They were willing to accept these risks and all the risks of surgery. The patient was given a weight-based dose of antibiotics in the form of 2 g Ancef. The patient was seen and evaluated by the anesthesia team who deemed them fit for surgery. The site was marked, the patient was willing to proceed with the procedure. The patient was transferred to the operative suite by the Department of anesthesia. They were then drifted off to sleep by the department anesthesia and GETA was performed. The patient tolerated this well. Dunham catheter was placed by nursing staff, a-traumatically. Once confirmation of lines and ventilation the patient was transferred to a Supine Floyd table very carefully. All bony prominences including wrists, elbows, axilla, chest, hips, and thighs, and feet were padded very well. Special attention was paid to the genitalia, and these were padded accordingly. SCDs were placed on bilateral lower extremities and were connected. Arms were well padded and placed at their side thumbs up. Once in position, again we confirmed good ventilation capabilities and that lines were running appropriately. The patients Cervical spine was then exposed. 1010s were placed outlining the incision site. Standard alcohol was used to clean the incision site and allowed to dry. C-arm was used to bio-bertha the patient and confirm level for incision which was marked with a skin marker. Operative briefing was performed with all teams and everyone in agreement to proceed. The patient was then prepped and draped in a normal sterile fashion. Timeout was then performed, and all parties agreed with the procedure to be performed. Transverse skin incision was then made on the RIGHT side of the patient's neck 3 cm and dissection taken down to the platysma which was split transversely. Sub platysma flap was made, and interval identified between SCM and medial structures. Omohyoid was visualized and protected. Blunt dissection taken down to the anterior cervical fascia which was identified. Blunt probe was then placed and lateral image taken which confirmed levels for operation. These levels were then marked with a bovi. Subperiosteal dissection of the longissimus muscles were then done over these levels identifying uncovertebral joints bilaterally. Retractor was then placed deep to these muscles and held in place with a bed arm. Starting at C6-7, [place] pins were placed into C6 and C7 and gentle distraction taken out over the levels. Kenan rongeur used to remove disc material. Operating microscope brought in for visualization. Complete discectomy performed at this level with curette, rongure and pituitary. High speed bharat used to remove osteophytes anteriorly and posteriorly until PLL was identified. 6-0 up curette then used to identify the canal and resect the PLL. 2-0 and 3-0 Kerrison used then to remove PLL and disc herniation and performed b/l foraminotomies. Once good decompression was accomplished, meticulous hemostasis was performed. Sizers were then placed under lateral fluoroscopy until the desired height and lordosis. Cage was then selected, packed with autograft and allograft and placed under lateral imaging. Once in good position it was tested and stable. Motors run before and after cage placement were stable. The wound was irrigated, and autograft placed lateral to the cage anteriorly for fusion. [place] pin was then removed from C7 and placed into C5. Gentle distraction taken out over C5-6 now. Complete discectomy done at C5-6 as described including decompression, b/l foraminotomies and PLL resection. Burring of endplates was minimal, osteophytes removed as described. Spacers were then sized and placed under lateral imaging. Cage selected, packed with graft and placed under lateral images. Once in position, meticulous hemostasis performed, and motors remained stable before and after cage placement. AP image confirmed good placement of cages. Wound was irrigated. [place] pin was then removed from C6 and placed into C4. Gentle distraction taken out over C4-5 now. Complete discectomy done at C4-5 as described including decompression, b/l foraminotomies and PLL resection. Burring of endplates was minimal, osteophytes removed as described. Spacers were then sized and placed under lateral imaging. Cage selected, packed with graft and placed under lateral images. Once in position, meticulous hemostasis performed, and motors remained stable before and after cage placement. AP image confirmed good placement of cages. Wound was irrigated. [place] pin was removed from C5 and placed in C3. Gentle distraction taken out over C3-4 now. Complete discectomy done at C3-4 as described including decompression, b/l foraminotomies and PLL resection. Burring of endplates was minimal, osteophytes removed as described. Spacers were then sized and placed under lateral imaging. Cage selected, packed with graft and placed under lateral images. Once in position, meticulous hemostasis performed, and motors remained stable before and after cage placement. AP image confirmed good placement of cages. Wound was irrigated. Anterior instrumentation was then done and screws drilled and selected and placed through the plate interface. All locking mechanisms were set, and all screws had good purchase. Final AP and lateral images taken confirmed good placement of hardware and good reduction and taoist of height. The wound was then irrigated copiously with NSS. Surgicel placed deep in the wound. A deep drain placed out a separate incision and sewed into place. Layered closure then performed with 3-0 Vicryl in the platysma and subQ tissue. 4-0 Strata fix in the subcuticular tissue. The wound was then cleaned, and dried and skin glue placed. Once glue dried on Opifoam was placed. The patient was then transferred back to their hospital bed a-traumatically. The drain continued to hold suction. They were placed in a soft collar. They were then awakened by the department of anesthesia having tolerated the procedure well without complications.
[2024-01-29 15:19] LABS: Basophils % (A) 0 %; Eosinophils # (A) 0.1 k/uL (0-0.7); Eosinophils % (A) 0 %; HCT 46.5 % (39.0-53.0); HGB 15.8 gm/dL (13.0-17.5); Lymphocytes # (A) 0.8 k/uL (1.0-4.8); Lymphocytes % (A) 5 %; MCH 33.7 pg (25.0-35.0); MCHC 33.9 g/dL (31.0-37.0); MCV 99.5 fL (80.0-100.0); Mean Platelet Volume 8.2; Monocytes # (A) 0.2 k/uL (0-1.0); Monocytes % (A) 1 %; Neutrophils # (A) 13.8 k/uL (1.3-7.7); Neutrophils % (A) 92 %; Platelet Count 253 k/uL (150-450); RBC 4.68 m/uL (4.30-5.90); RDW 12.4 % (11.5-15.5); WBC 14.9 k/uL (3.8-10.6)
[2024-01-29 15:34] LABS: ALT 21 U/L (4-49); AST 33 U/L (17-59); African American GFR (CKD) >90 (>60 ml/min/1.73 sqM); Albumin 4.2 g/dL (3.5-5.0); Albumin/Globulin Ratio 1.7; Alkaline Phosphatase 90 U/L (38-126); Anion Gap 6 mmol/L; Blood Urea Nitrogen 21 mg/dL (9-20); Calcium 9.9 mg/dL (8.4-10.2); Carbon Dioxide 24 mmol/L (22-30); Chloride 108 mmol/L (98-107); Globulin 2.5 g/dL; Glucose 114 mg/dL (74-99); Non-African American GFR(CKD) 87 (>60 ml/min/1.73 sqM); Potassium 3.9 mmol/L (3.5-5.1); Sodium 138 mmol/L (137-145); Total Bilirubin 0.9 mg/dL (0.2-1.3); Total Protein 6.7 g/dL (6.3-8.2)
[2024-01-29] MEDS: PRAMIPEXOLE 0.125 MG TAB PO PRN (16:07)
[2024-01-29] MEDS: HYDROmorphone 1 MG/ML 1 ML SYRINGE IVP PRN (16:22)
[2024-01-29] MEDS: bisacodyL 5 MG TABLET.DR PO PRN (16:23)
--- NOTE | 2024-01-29 16:37 | P.PN ---
Subjective Progress Note Date: 01/29/24 Interval History: 73-year-old male patient with past medical history significant for hypertension, osteoarthritis, GERD, history of pancreatic cancer status post chemotherapy and Whipple's procedure in 2016, history of heart murmur who was following orthopedic for worsening low back pain and progressive difficulty in ambulation since August. Patient does not remember any inciting event in the epidural, p atient reported that he he noted that towards the end of the month he was losing the ability to walk. Patient felt his legs were progressively getting more wobbly, was also feeling more unsteady, reported losing his balance and also was unable to hold onto objects. Patient stated that he has been seen by [facility] and physical therapy without much relief. Patient had MRI of brain and lower back. MRI lower back showed L5-S1 spondylosis with listhesis. Patient reported bilateral lower extremity weakness, numbness, tingling as well as medial thigh numbness and tingling. Patient also reported weakness of upper extremities. Patient also had MRI of the neck done and read alert was sent to orthopedics and patient was advised to come to the ED. 01/27--patient was seen and examined today. No issues overnight. Vital stable. Blood pressure 147/78. Saturating 92% on room air. 01/28--patient was seen and examined today. No issues overnight. Status post ACDF C3-C7 today. Assessment and plan: Cervical stenosis with myelopathy and radiculopathy: Bilateral upper and lower extremity weakness: Presented with lower extremity weakness and numbness, chronic back pain, upper extremity weakness progressively getting worse. MRI lumbar spine showed L5-S1 spondylosis with listhesis. MRI cervical spine:Images reviewed demonstrate multilevel spondylosis with HNP and severe stenosis C3-7 with severe cord signal changes at every level along with foraminal stenosis. There are pincer lesions at C3-7 levels with severe central stenosis noted. Flattened CL due to collapse of disc spaces as well as spondylosis. Severe facet arthrosis noted. No fractures. No lesions C0-1 and C1-2 stable. Monitor with neurochecks Decadron Pain control as needed Management per orthopedicplan for staged surgical intervention s/ p 01/29/24 ACDF C3-7. 02/01/24 Posterior C2-T2 decompression and fusion. Renal function stable, no cardiac history, patient asymptomatic, okay to proceed with surgical intervention. Hypertension: Continue amlodipine, losartan. History of pancreatic cancer: GERD: DVT prophylaxis Per primary PHYSICAL EXAMINATION: GENERAL: The patient is A&O x3, NAD HEENT: EOMI, Sclerae anicteric, Moist Mucous membranes Neck: Supple, Non tender, No JVD PULMONARY: Equal breath souds B/L, No wheezing, No crackles. CARDIOVASCULAR: S1, S2 present. No murmurs, rubs, or gallops. ABDOMEN: Soft, nontender, nondistended, normoactive bowel sounds. No guarding or rebound tenderness. MUSCULOSKELETAL: No edema, No cyanosis. No clubbing. Normal ROM. Intact peripheral pulses. EXTREMITIES: No cyanosis, clubbing, or pedal edema. NEUROLOGICAL: CN 2-12 grossly intact. No FND Skin: No Rash REVIEW OF SYSTEMS: CONSTITUTIONAL: No fever or chills. CARDIOVASCULAR: No chest pain, palpitations or syncope. PULMONARY: No shortness of breath, no cough, sore throat. GASTROINTESTINAL: No nausea, vomiting, diarrhea, abdominal pain. : No Dysuria, urgency, frequency. Extremities: No edema. NEUROLOGICAL: No headaches, no weakness, or numbness Dictation was produced using [employer] dictation software. please excuse any grammatical, word or spelling errors. Objective - Vital Signs Vital signs: Vital Signs Temp 97.7 F 01/29/24 07:15 Pulse 90 01/29/24 14:38 Resp 16 01/29/24 13:37 BP 99/62 01/29/24 14:38 Pulse Ox 96 01/29/24 14:38 FiO2 Intake & Output 01/28/24 01/29/24 01/29/24 18:59 06:59 18:59 Output Total 1025 Balance -1025 Output: Urine 1025 Other: Voiding Method Urinal Urinal # Voids 2 - Labs CBC & Chem 7: 01/29/24 14:58 01/29/24 14:58 Labs: Abnormal Lab Results - Last 24 Hours (Table) 01/29/24 01/29/24 Range/Units 14:58 14:58 WBC 14.9 H (3.8-10.6) k/uL Neutrophils # 13.8 H (1.3-7.7) k/uL Lymphocytes # 0.8 L (1.0-4.8) k/uL Chloride 108 H (98-107) mmol/L BUN 21 H (9-20) mg/dL Glucose 114 H (74-99) mg/dL
[2024-01-30] MEDS: SENNOSIDES-DOCUSATE SODIUM 1 EACH TAB PO SCH (08:26)
[2024-01-30] MEDS: polyethylene glycoL 3350 17 GM POWD.PACK PO SCH (08:26)
--- NOTE | 2024-01-30 11:48 | P.PN ---
Subjective Progress Note Date: 01/30/24 Principal diagnosis: Abnormal MRI findings Cervical myelopathy (Acute) Cervical stenosis of spine (Acute) Quadriplegia and quadriparesis (Acute) Upper extremity weakness (Acute) Lower extremity weakness (Acute) Cervical spondylosis with myelopathy (Acute) Cervical spondylosis with myelopathy and radiculopathy Patient seen and examined this morning. Patient was sitting up in chair at bedside. Patient has been ambulatory within the room with standby assist. He does report that his pain is managed on current regimen. He has complaint of bilateral shoulder pain, discussed with patient that this is normal with cervical surgery. Encouraged use of ice packs across the shoulders. Current surgical dressing to the anterior cervical spine does demonstrate some mild shadowing. REYES drain is present and patent. Patient is scheduled for stage II C2-T2 decompression and fusion for , 02/01/2024. Continue to encourage patient to work with physical therapy and to use incentive spirometer while awake. No acute concerns at this time. Objective - Vital Signs Vital signs: Vital Signs Temp 98.1 F 01/30/24 07:17 Pulse 83 01/30/24 07:17 Resp 17 01/30/24 07:17 BP 139/80 01/30/24 07:17 Pulse Ox 91 L 01/30/24 07:17 FiO2 Intake & Output 01/29/24 01/30/24 01/30/24 18:59 06:59 18:59 Output Total 400 1000 Balance -400 -1000 Output: Urine 400 1000 Other: Voiding Method Urinal Indwelling Catheter - Exam Physical Examination General: The patient is awake and alert, in no acute distress Skin: Skin is warm and dry with no obvious rashes or lesions. Surgical incision to the anterior cervical spine, dressing has mild shadowing noted. REYES drain is present and patent. Eye: Pupils are equal, round and reactive to light, extra-ocular movements are intact; there is normal conjunctiva bilaterally. Neck: The neck is supple, there is mild tenderness around incision site, limited range of motion due to surgical intervention and hard cervical collar in place. Cardiovascular: There is a regular rate and rhythm. No murmur, rub or gallop is appreciated. Respiratory: Respirations are non-labored, breath sounds are equal. Gastrointestinal: Soft, non-distended, non-tender abdomen. Back: There is no tenderness to palpation in the midline, paralumbar, parathoracic or buttocks region. There is no obvious deformity . Musculoskeletal: ROM limited secondary to pain and stiffness from surgical pr ocedure. Right: Shoulder abduction 4/5, elbow flexors 4/5, wrist dorsiflexors 4-/5. finger abductor 4-/5, truck farmer 4-/5, hip flexor 4/5, knee flexor 4/5, ankle dorsiflexor 4/5, ankle plantarflexion 4/5 and extensor hallucis 4/5. Left: Shoulder abduction 4/5, elbow flexors 4/5, wrist dorsiflexors 4/5. finger abductor 4-/5, truck farmer 4-/5, hip flexor 4-/5, knee flexor 4/5, ankle dorsiflexor 4/5, ankle plantarflexion 4/5 and extensor hallucis 4/5. Neurological: CN 2-12 intact. There are no obvious motor or sensory deficits. Movement and coordination equal and intact. Sensory exam to light touch intact C5-T1 and intact from L2-S1. Reflexes 2/4 in bilateral upper and lower extremities. Negative Hoffmans, babinski, and clonus signs. Psychiatric: Cooperative, appropriate mood & affect, normal judgment. - Labs CBC & Chem 7: 01/29/24 14:58 01/29/24 14:58 Labs: Abnormal Lab Results - Last 24 Hours (Table) 01/29/24 01/29/24 Range/Units 14:58 14:58 WBC 14.9 H (3.8-10.6) k/uL Neutrophils # 13.8 H (1.3-7.7) k/uL Lymphocytes # 0.8 L (1.0-4.8) k/uL Chloride 108 H (98-107) mmol/L BUN 21 H (9-20) mg/dL Glucose 114 H (74-99) mg/dL Assessment and Plan Assessment: Postop day 1: C3-C7 ACDF Plan: -Appreciate strategy planning consultant and team management. -Stage II: C2-T2 decompression and fusion scheduled for , 02/01/2024. -Activity: Ambulate QID, OOB all meals, up and about, limit lifting bending twisting to less than 5 lbs. Use walker or cane if needed for stability. -Daily PT/OT, increase ambulation strength and balance. -Hard cervical collar on at all times. -Pain control: Adequate at this time -Meds: reviewed -GI ppx: senna, Miralax -DC marks: Maintain at this time -DVT PPX: Mechanical -Hygiene: Shower today. Maintain dressing clean and dry. -Drains: Maintain for now. Continue to monitor and record output q shift. -Encourage IS 10x/hr -Dispo: Clinically pending *I reviewed and discussed this case with my attending Dr. Piedra, whom has reviewed this chart and films and is in agreement with assessment and plan of care as outlined above. I have personally seen and examined the patient, performed the documentation and the assessment and plan as written. Number of minutes spent on the visit: 20m.
--- NOTE | 2024-01-30 15:15 | P.PN ---
Subjective Progress Note Date: 01/30/24 Interval History: 73-year-old male patient with past medical history significant for hypertension, osteoarthritis, GERD, history of pancreatic cancer status post chemotherapy and Whipple's procedure in 2016, history of heart murmur who was following orthopedic for worsening low back pain and progressive difficulty in ambulation since August. Patient does not remember any inciting event in the epidural, p basilioient reported that he he noted that towards the end of the month he was losing the ability to walk. Patient felt his legs were progressively getting more wobbly, was also feeling more unsteady, reported losing his balance and also was unable to hold onto objects. Patient stated that he has been seen by MMS and physical therapy without much relief. Patient had MRI of brain and lower back. MRI lower back showed L5-S1 spondylosis with listhesis. Patient reported bilateral lower extremity weakness, numbness, tingling as well as medial thigh numbness and tingling. Patient also reported weakness of upper extremities. Patient also had MRI of the neck done and read alert was sent to orthopedics and patient was advised to come to the ED. 01/27--patient was seen and examined today. No issues overnight. Vital stable. Blood pressure 147/78. Saturating 92% on room air. 01/28--patient was seen and examined today. No issues overnight. Status post ACDF C3-C7 today. 01/29--patient was seen and examined today. Patient sitting up in chair, complaining of neck pain, got worse after patient ambulated. Complaining of bilateral shoulder pain, reported improvement in lower extremity weakness. REYES drain in place. Patient scheduled for stage II C2-T2 decompression and fusion for , 02/01/2024. Incentive spirometry, PT/OT consult. Orthopedic spine following. Assessment and plan: Cervical stenosis with myelopathy and radiculopathy: Bilateral upper and lower extremity weakness: Presented with lower extremity weakness and numbness, chronic back pain, upper extremity weakness progressively getting worse. MRI lumbar spine showed L5-S1 spondylosis with listhesis. MRI cervical spine:Images reviewed demonstrate multilevel spondylosis with HNP and severe stenosis C3-7 with severe cord signal changes at every level along with foraminal stenosis. There are pincer lesions at C3-7 levels with severe central stenosis noted. Flattened CL due to collapse of disc spaces as well as spondylosis. Severe facet arthrosis noted. No fractures. No lesions C0-1 and C1-2 stable. Monitor with neurochecks Decadron Pain control as needed Management per orthopedicplan for staged surgical intervention------ s/ p 01/29/24 ACDF C3-7. Plan for 02/01/24 Posterior C2-T2 decompression and fusion. Renal function stable, no cardiac history, patient asymptomatic, okay to proceed with surgical intervention. Hypertension: Continue amlodipine, losartan. History of pancreatic cancer: GERD: DVT prophylaxis Per primary PHYSICAL EXAMINATION: GENERAL: The patient is A&O x3, NAD HEENT: EOMI, Sclerae anicteric, Moist Mucous membranes Neck: Cervical collar in place, REYES drain in place, decreased range of motion. PULMONARY: Equal breath souds B/L, No wheezing, No crackles. CARDIOVASCULAR: S1, S2 present. No murmurs, rubs, or gallops. ABDOMEN: Soft, nontender, nondistended, normoactive bowel sounds. No guarding or rebound tenderness. MUSCULOSKELETAL: No edema, No cyanosis. No clubbing. Normal ROM. Intact peripheral pulses. EXTREMITIES: No cyanosis, clubbing, or pedal edema. NEUROLOGICAL: CN 2-12 grossly intact. No FND Skin: No Rash REVIEW OF SYSTEMS: CONSTITUTIONAL: No fever or chills. Complains of neck pain. CARDIOVASCULAR: No chest pain, palpitations or syncope. PULMONARY: No shortness of breath, no cough, sore throat. GASTROINTESTINAL: No nausea, vomiting, diarrhea, abdominal pain. : No Dysuria, urgency, frequency. Extremities: No edema. NEUROLOGICAL: No headaches, no weakness, or numbness Dictation was produced using [employer] dictation software. please excuse any grammatical, word or spelling errors. Objective - Vital Signs Vital signs: Vital Signs Temp 98.1 F 01/30/24 14:00 Pulse 78 01/30/24 14:00 Resp 15 01/30/24 14:00 BP 128/77 01/30/24 14:00 Pulse Ox 96 01/30/24 14:00 FiO2 Intake & Output 01/29/24 01/30/24 01/30/24 18:59 06:59 18:59 Output Total 400 1000 Balance -400 -1000 Output: Urine 400 1000 Other: Voiding Method Urinal Indwelling Catheter Indwelling Catheter - Labs CBC & Chem 7: 01/29/24 14:58 01/29/24 14:58 Labs: Abnormal Lab Results - Last 24 Hours (Table) 01/29/24 01/29/24 Range/Units 14:58 14:58 WBC 14.9 H (3.8-10.6) k/uL Neutrophils # 13.8 H (1.3-7.7) k/uL Lymphocytes # 0.8 L (1.0-4.8) k/uL Chloride 108 H (98-107) mmol/L BUN 21 H (9-20) mg/dL Glucose 114 H (74-99) mg/dL
[2024-01-30] MEDS: HYDROmorphone 0.5 MG/0.5 ML SYRINGE IVP PRN (15:25)
[2024-01-30] MEDS: CYCLOBENZAPRINE 10 MG TAB PO PRN (17:19)
--- NOTE | 2024-01-31 10:06 | P.PN ---
Subjective Progress Note Date: 01/31/24 Principal diagnosis: Abnormal MRI findings Cervical myelopathy (Acute) Cervical stenosis of spine (Acute) Quadriplegia and quadriparesis (Acute) Upper extremity weakness (Acute) Lower extremity weakness (Acute) Cervical spondylosis with myelopathy (Acute) Cervical spondylosis with myelopathy and radiculopathy Patient seen and examined this morning. Patient was sitting up at bedside. Patient has been ambulatory within the room utilizing walker and standby assist. He does report that his pain is managed on current regimen. Encouraged use of ice packs across the shoulders. Current surgical dressing to the anterior cervical spine does demonstrate some mild shadowing. REYES drain is present and patent. Patient is scheduled for stage II C2-T2 decompression and fusion for , 02/01/2024. He will be NPO at midnight. Patient discussed some confusion with his planned procedure; he was understanding that he was having a posterior cervical and lumbar surgery tomorrow. Forming Process Line Worker confirmed with Dr. Piedra that we will be performing the posterior cervical surgical intervention tomorrow 02/01/24 and if patient would like to proceed with the lumbar portion of his surgery we would have to schedule that for next week. RN was updated to relay information to patient. Continue to encourage patient to work with physical therapy and to use incentive spirometer while awake. No acute concerns at this time. Objective - Vital Signs Vital signs: Vital Signs Temp 97.3 F L 01/31/24 07:13 Pulse 73 01/31/24 07:13 Resp 18 01/31/24 07:13 BP 135/81 01/31/24 07:13 Pulse Ox 93 L 01/31/24 07:13 FiO2 Intake & Output 01/30/24 01/31/24 01/31/24 18:59 06:59 18:59 Output Total 10 950 Balance -10 -950 Output: Drainage 10 Neck 10 Urine 950 Other: Voiding Method Indwelling Catheter Indwelling Catheter - Exam Physical Examination General: The patient is awake and alert, in no acute distress Skin: Skin is warm and dry with no obvious rashes or lesions. Surgical incisio n to the anterior cervical spine, dressing has mild shadowing noted. REYES drain is present and patent. Eye: Pupils are equal, round and reactive to light, extra-ocular movements are intact; there is normal conjunctiva bilaterally. Neck: The neck is supple, there is mild tenderness around incision site, limited range of motion due to surgical intervention and hard cervical collar in place. Cardiovascular: There is a regular rate and rhythm. No murmur, rub or gallop is appreciated. Respiratory: Respirations are non-labored, breath sounds are equal. Gastrointestinal: Soft, non-distended, non-tender abdomen. Back: There is no tenderness to palpation in the midline, paralumbar, para thoracic or buttocks region. There is no obvious deformity . Musculoskeletal: ROM limited secondary to pain and stiffness from surgical procedure. Right: Shoulder abduction 4/5, elbow flexors 4/5, wrist dorsiflexors 4-/5. finger abductor 4-/5, structural welder 4-/5, hip flexor 4/5, knee flexor 4/5, ankle dorsiflexor 4/5, ankle plantarflexion 4/5 and extensor hallucis 4/5. Left: Shoulder abduction 4/5, elbow flexors 4/5, wrist dorsiflexors 4/5. finger abductor 4-/5, structural welder 4-/5, hip flexor 4-/5, knee flexor 4/5, ankle dorsiflexor 4/5, ankle plantarflexion 4/5 and extensor hallucis 4/5. Neurological: CN 2-12 intact. There are no obvious motor or sensory deficits. Movement and coordination equal and intact. Sensory exam to light touch intact C5-T1 and intact from L2-S1. Reflexes 2/4 in bilateral upper and lower extremities. Negative Hoffmans, babinski, and clonus signs. Psychiatric: Cooperative, appropriate mood & affect, normal judgment. - Labs CBC & Chem 7: 01/29/24 14:58 01/29/24 14:58 Assessment and Plan Assessment: Postop day 2: C3-C7 ACDF Plan: -Appreciate consultant internship and team management. -Stage II: C2-T2 decompression and fusion scheduled for , 02/01/2024. -Patient to be NPO at Midnight -Activity: Ambulate QID, OOB all meals, up and about, limit lifting bending twisting to less than 5 lbs. Use walker or cane if needed for stability. -Daily PT/OT, increase ambulation strength and balance. -Hard cervical collar on at all times. -Pain control: Adequate at this time -Meds: reviewed -GI ppx: senna, Miralax -DC marks: Maintain at this time -DVT PPX: Mechanical -Hygiene: Shower today. Maintain dressing clean and dry. -Drains: Maintain for now. Continue to monitor and record output q shift. -Encourage IS 10x/hr -Dispo: Clinically pending *I reviewed and discussed this case with my attending Dr. Piedra, whom has reviewed this chart and films and is in agreement with assessment and plan of care as outlined above. I have personally seen and examined the patient, performed the documentation and the assessment and plan as written. Number of minutes spent on the visit: 20m.
[2024-01-31 11:57] LABS: Basophils % (A) 0 %; Eosinophils # (A) 0.1 k/uL (0-0.7); Eosinophils % (A) 1 %; HCT 41.5 % (39.0-53.0); HGB 13.7 gm/dL (13.0-17.5); Lymphocytes # (A) 1.1 k/uL (1.0-4.8); Lymphocytes % (A) 11 %; MCH 32.7 pg (25.0-35.0); MCHC 32.9 g/dL (31.0-37.0); MCV 99.3 fL (80.0-100.0); Mean Platelet Volume 7.9; Monocytes # (A) 0.8 k/uL (0-1.0); Monocytes % (A) 8 %; Neutrophils # (A) 8.3 k/uL (1.3-7.7); Neutrophils % (A) 79 %; Platelet Count 234 k/uL (150-450); RBC 4.18 m/uL (4.30-5.90); RDW 11.9 % (11.5-15.5); WBC 10.5 k/uL (3.8-10.6)
[2024-01-31 12:10] LABS: ALT 20 U/L (4-49); AST 41 U/L (17-59); African American GFR (CKD) >90 (>60 ml/min/1.73 sqM); Albumin 3.8 g/dL (3.5-5.0); Albumin/Globulin Ratio 1.6; Alkaline Phosphatase 81 U/L (38-126); Anion Gap 8 mmol/L; Blood Urea Nitrogen 25 mg/dL (9-20); Calcium 9.5 mg/dL (8.4-10.2); Carbon Dioxide 23 mmol/L (22-30); Chloride 106 mmol/L (98-107); Globulin 2.4 g/dL; Glucose 90 mg/dL (74-99); Non-African American GFR(CKD) >90 (>60 ml/min/1.73 sqM); Potassium 3.9 mmol/L (3.5-5.1); Sodium 137 mmol/L (137-145); Total Bilirubin 1.3 mg/dL (0.2-1.3); Total Protein 6.2 g/dL (6.3-8.2)
[2024-01-31 15:28] LABS: INR 0.9 (<1.2); Partial Thromboplastin Time 24.1 sec (22.0-30.0); Prothrombin Time 10.5 sec (10.0-12.5)
--- NOTE | 2024-02-01 05:49 | P.PN ---
Subjective Progress Note Date: 01/31/24 73-year-old male patient with past medical history significant for hypertension, osteoarthritis, GERD, history of pancreatic cancer status post chemotherapy and Whipple's procedure in 2016, history of heart murmur who was following orthopedic for worsening low back pain and progressive difficulty in ambulation since August. Patient does not remember any inciting event in the epidural, patient reported that he he noted that towards the end of the month he was losing the ability to walk. Patient felt his legs were progressively getting more wobbly, was also feeling more unsteady, reported losing his balance and also was unable to hold onto objects. Patient stated that he has been seen by MMS and physical therapy without much relief. Patient had MRI of brain and lower back. MRI lower back showed L5-S1 spondylosis with listhesis. Patient reported bilateral lower extremity weakness, numbness, tingling as well as medial thigh numbness and tingling. Patient also reported weakness of upper e xtremities. Patient also had MRI of the neck done and read alert was sent to orthopedics and patient was advised to come to the ED. 01/27--patient was seen and examined today. No issues overnight. Vital stable. Blood pressure 147/78. Saturating 92% on room air. 01/28--patient was seen and examined today. No issues overnight. Status post ACDF C3-C7 today. 01/29--patient was seen and examined today. Patient sitting up in chair, complaining of neck pain, got worse after patient ambulated. Complaining of bilateral shoulder pain, reported improvement in lower extremity weakness. REYES drain in place. Patient scheduled for stage II C2-T2 decompression and fusion for , 02/01/2024. Incentive spirometry, PT/OT consult. Orthopedic spine following. 01/31/2024 Patient is seen in follow-up today being followed by orthopedics and scheduled to undergo stage II of the decompression and fusion on 02/01/2024. Patient reports his initial surgery was earlier this week anteriorly. Patient continues with neck collar and currently up in the chair. Patient to continue on bowel regimen and recommend scheduled as well as as needed as patient reports he is passing gas but did not have much of a bowel movement although he is not quite reporting constipation. Continue to encourage incentive spirometer and increase activity as tolerated. PT/OT therapy once cleared by orthopedics REVIEW OF SYSTEMS: CONSTITUTIONAL: No fever or chills. Complains of neck pain. CARDIOVASCULAR: No chest pain, palpitations or syncope. PULMONARY: No shortness of breath, no cough, sore throat. GASTROINTESTINAL: No nausea, vomiting, diarrhea, abdominal pain. : No Dysuria, urgency, frequency. Extremities: No edema. NEUROLOGICAL: No headaches, no weakness, or numbness PHYSICAL EXAMINATION: GENERAL: The patient is A&O x3, NAD HEENT: EOMI, Sclerae anicteric, Moist Mucous membranes Neck: Cervical collar in place, REYES drain in place, decreased range of motion. PULMONARY: Equal breath souds B/L, No wheezing, No crackles. CARDIOVASCULAR: S1, S2 present. No murmurs, rubs, or gallops. ABDOMEN: Soft, nontender, nondistended, normoactive bowel sounds. No guarding or rebound tenderness. MUSCULOSKELETAL: No edema, No cyanosis. No clubbing. Normal ROM. Intact peripheral pulses. EXTREMITIES: No cyanosis, clubbing, or pedal edema. NEUROLOGICAL: CN 2-12 grossly intact. No FND Skin: No Rash Assessment: Cervical stenosis with myelopathy and radiculopathy with bilateral upper and lower extremity weakness with numbness, status post ACDF C3-7 on 01/29/2024. Plan for 02/01/24 Posterior C2-T2 decompression and fusion. MRI lumbar spine showed L5-S1 spondylosis with listhesis. MRI cervical spine:Images reviewed demonstrate multilevel spondylosis with HNP and severe stenosis C3-7 with severe cord signal changes at every level along with foraminal stenosis. There are pincer lesions at C3-7 levels with severe central stenosis noted. Flattened CL due to collapse of disc spaces as well as spondylosis. Severe facet arthrosis noted. No fractures. No lesions C0-1 and C1-2 stable. Hypertension history History of pancreatic cancer GERD GI prophylaxis DVT prophylaxis Full code Plan: Patient continues with hard collar with orthopedics following scheduled to undergo posterior decompression on 02/01/2024. Will await orthopedic report Follow-up on repeat labs and replace electrolytes per protocol Home medications reviewed and resumed as appropriate Continue to encourage incentive spirometer at least 10 times every hour while awake Continue bowel regimen scheduled and as needed We will continue to follow with orthopedics during hospitalization. Thank you kindly for this consultation. The impression and plan of care has been dictated by Meera Fitzgerald Nurse Pract [email or web address] as directed. Dr. Herve MD I have performed a history and examination and MDM of this patient, discussed the same with the dictator, and agree with the dictator's assessment and plan as written ,documented as a scribe. Based on total visit time, I have performed more than 50% of the visit. Objective - Vital Signs Vital signs: Vital Signs Temp 97.3 F L 01/31/24 07:13 Pulse 73 01/31/24 07:13 Resp 18 01/31/24 07:13 BP 135/81 01/31/24 07:13 Pulse Ox 93 L 01/31/24 07:13 FiO2 Intake & Output 01/30/24 01/31/24 01/31/24 18:59 06:59 18:59 Output Total 10 950 Balance -10 -950 Output: Drainage 10 Neck 10 Urine 950 Other: Voiding Method Indwelling Catheter Indwelling Catheter - Labs CBC & Chem 7: 01/31/24 11:30 01/31/24 11:30
[2024-02-01] MEDS: LACTATED RINGERS 1,000 ML BAG IV STA (06:47)
--- NOTE | 2024-02-01 06:47 | P.PN ---
Progress Note - Text Progress Note Date: 02/01/24 Spine Surgery Clinical and Risk Review Bruce Banerjee is a 73 yo male presenting for evaluation of inability to ambulate with UE and LE weakness, fine motor disruption, inability to perform ADLs, newly wheelchair bound. It was my pleasure to have seen and examined Bruce Banerjee. In our visit today we have had a chance to go over subjective complaints, physical examination findings and treatments including the natural course history without intervention and various interventional options. The patients imaging demonstrates severe cervical stenosis due to spondylosis, HNP and spondylolisthesis of C4-5, C5-6, C6-7. There is disc height collapse, facet arthropathy that contribute. There are pincer lesions at each level causing severe stenosis along with mylomalacial changes at these levels that is severe. No fracture or lesion otherwise noted. On physical exam, Bruce Banerjee demonstrates Cervical myelopathy, inability to ambulate for the last two months, increased clumbsiness, inability to perform ADLs on his own that is progressive. Progressive decline in fine motor skills, muscle wasting of intrinsic hands and arms. Atropy and weakness of UE and LE BL. Gait imbalance. 4/5 UE and LE with 3/5 credit clerk and tricep as well as shoulder abduction. +Burgos's BL; +clonus b/l; Neg Babinski. Diadokinesis not intact. Dexterity not intact. Dermatomal deficits including C3-7 global and L4-S1 due to lumbar pathology as well simultaneously. I have explained to the patient that as their condition progresses it will cause further neurological deficits and eventual paralysis. Based on the patients imaging, physical exam, and the rapid progression and disabling nature of their symptoms, at this time I recommend surgery in the form or a: Stage I: C3-7 ANTERIOR CERVICAL DISCECTOMY AND FUSION WITH STAGE II: C2-T2 DECOMPRESSION AND FUSION. I discussed the risk and benefits of this procedure at length with Bruce Banerjee. The patient and family agreed to considered pursuing the procedure abovementioned. Prior to surgery, she should follow up with her PCP (Cardio, ID, IM etc) for clearance. Questions were invited and answered, and the patient wishes to proceed as outlined below. Currently, I am recommendin. STAGE II: C2-T2 DECOMPRESSION AND FUSION 2. Follow up with PCP for surgical clearance 3. Review of surgical risks and benefits as well as an educational packet on the proposed surgical procedure. Risks: All surgical procedures come with inherent risks, including those related to positioning, anesthesia, intraoperative findings, and postoperative complicati ons. It is important to understand that surgery does not come with any guarantee of a successful outcome as complications and adverse events are always possible. The patient was given a handout in office today discussing the surgical procedure and risks associated with the intervention, both of which were discussed with the patient. These risks include but are not limited to the following: * Experiencing same, different or even worse symptoms in back, neck, arms, or legs compared to before surgery. * Requiring further surgery or other forms of treatment presently or at some time in the future at same or other levels of the intended spine surgery. * On an extreme but fortunately relatively rare basis severe complication such as blindness, stroke, heart attack, temporary and/or permanent nerve injury, paralysis, coma, or may occur, sometimes without known explanation. * Surgical complications may include but are not limited to risk of infection, fluid accumulation in the surgical dissection site, including a seroma or hematoma, that requires additional surgery, wound drainage, bleeding, new numbness or weakness, vision changes/loss, spinal fluid leakage, non-healing and/or infected incision, headaches, difficulty or inability to swallow, hoarseness, hemopneumothorax, pneumothorax, impotence, retrograde ejaculation, vaginal dryness; injury to nerves, spinal cord, blood vessels, lymphatics or other vital organs (i.e., bowel injury, injury to the great vessels); heterotopic bone formation; complications related to the hardware such as screws, rods, cages including misplaced hardware, device failure, instrumentation at the wrong spine level, hardware fracture/breakage, or hardware loosening; vertebral failure of the spinal column above or below the newly placed hardware; retained surgical instrumentations or devices and the need for further surgery. * Medical risks of the planned spine surgery include but are not limited to generalized Infections to the whole body or local areas outside of the surgical site (sepsis), heart attack, bleeding, anaphylaxis, meningitis, seizure, epilepsy, hearing loss, burn gardner, laceration of the head or other areas of the body, bruising, hypersensitivity of the skin, bladder over distension; allergic reaction; shoulder injury related to positioning; fat, blood and air clots to other areas of the body like heart, lungs, brain; failure of internal organs such as lungs, kidneys, liver and excessive bleeding. If blood transfusions are necessary, note that transfusions may cause intolerance reactions such as anaphylaxis or other complex reactions. * Despite best efforts, the results of spine surgery might not heal in terms of bone, soft tissues such as skin, fascia, ligaments, and joints. Additionally, in order to achieve best possible results, spine surgery may be carried out beyond the initially planned levels and involve decompression, fusion including insertion of hardware at levels other than the original intended area of surgical interest change some portions of the procedure in order to ensure the best possible outcomes. * With spine surgery and spinal fusion, there are different off label uses of instrumentation (devices, implants and hardware) as well as biological substances (bone morphogenic proteins, demineralized bone matrix) as well as using extra bone from allograft sources (i.e. cadaver bone) or autograft (iliac crest bone, ribs, or the spine itself). The patient has been given information about these practices and their inherent risks and benefits. The patient has had a chance to review all the listed information, has been given print outs detailing this information, and has had all his/her questions answered to their satisfaction. It was my pleasure to have seen and examined Bruce Banerjee. In our visit today we have had a chance to go over my understanding of our patient's current condition, the natural course history without intervention and various interventional options. Questions were invited and answered, and the patient wishes to proceed as outlined above. I have seen and examined the patient for 25 minutes and we have spent more than 50% of the time in repeat and detailed counseling about the patient's condition, its natural course history with out and as much as can be predicted with surgery and re-review of various surgical treatment options. In conclusion, Bruce Banerjee and family requested we proceed with the above suggested surgery and are willing to accept risks and limitations of the suggested surgery as nature of the disease process and our best attempts at treatment for the condition. Thank you again for allowing us to be part of your patient's care. Please don't hesitate to contact me if you have any further questions. Signed and authenticated by: Og [facility] [id number] [id number]
[2024-02-01] MEDS: IV FLUID CONTINUATION 1,000 ML IV ONE ×5 (06:50→11:43)
[2024-02-01] MEDS: MIDAZOLAM 2 MG/2 ML VIAL IV ONE (06:55)
[2024-02-01] MEDS: ONDANSETRON 4 MG/2 ML VIAL IVP STA (06:57)
[2024-02-01] MEDS: DEXAMETHASONE SOD PHOSPHATE 4 MG/ML 1 ML VIAL IV PRN (07:05)
[2024-02-01] MEDS ORDERED: TRANEXAMIC 1,000 MG/100ML-NACL 1,000 MG in SALINE 1 100ML.BAG IVPB PRN (07:19)
[2024-02-01] MEDS ORDERED: PROPOFOL 10 MG/ML 20 ML VIAL IV ONE (07:28)
[2024-02-01] MEDS ORDERED: SUCCINYLCHOLINE CHLORIDE 200 MG/10 ML VIAL IV ONE (07:28)
[2024-02-01] MEDS ORDERED: HYDROmorphone (PF) 1 MG/ML ONE (07:28)
[2024-02-01] MEDS ORDERED: fentaNYL (PF) 50 MCG/ML 2 ML AMP ONE (07:28)
[2024-02-01] MEDS ORDERED: KETAMINE HCL IN 0.9 % NACL 50 MG/5 ML SYRINGE ONE (07:28)
[2024-02-01] MEDS ORDERED: PHENYLEPHRINE 10 MG/ML VIAL ONE (07:28)
[2024-02-01] MEDS ORDERED: MIDAZOLAM 2 MG/2 ML VIAL ONE (07:28)
[2024-02-01] MEDS ORDERED: ROCURONIUM 10 MG/ML (5 ML VIAL) IV ONE (07:28)
[2024-02-01] MEDS: SODIUM CHLORIDE 0.9% 100 ML with ceFAZolin 2,000 MG IV ONE (07:32)
[2024-02-01] MEDS: LACTATED RINGERS 1,000 ML IV SCH ×2 (08:12→13:47)
[2024-02-01] MEDS: ONDANSETRON 4 MG/2 ML VIAL IVP ONE (08:12)
--- NOTE | 2024-02-01 08:30 | P.ANPRN ---
Procedure Note - Anesthesia - Invasive Line Left Arterial Line Time Out Performed: Yes Date of Procedure: 02/01/24 Time of Procedure: 06:55 Location of Patient: Phase I Preparation: Sterile Prep, Sterile Dressing Arterial Line Location: Radial Ultrasound Used: No Purpose - Visualization and Identification of Vasculature: No Needle Guage: 20 G Left Radial. Image Stored and Saved: No Narrative: Invasive line placement per sterile protocol utilized.
[2024-02-01] MEDS: GENTAMICIN 80 MG in SODIUM CHLORIDE 0.9% IRRIGATIO 3,000 ML IRRIGATION ONE (08:43)
[2024-02-01] MEDS: ceFAZolin 3,000 MG in SODIUM CHLORIDE 0.9% IRRIGATIO 3,000 ML IRRIGATION ONE (08:43)
[2024-02-01] MEDS: THROMBIN (BOVINE) 5,000 UNIT VIAL TOPICAL ONE (08:43)
[2024-02-01] MEDS: LACTATED RINGERS 1,000 ML IV ONE (10:13)
[2024-02-01] MEDS: VANCOMYCIN 1,000 MG VIAL MISCELLANE ONE (10:38)
--- NOTE | 2024-02-01 11:26 | P.OP ---
Date of Procedure: 02/01/24 Preoperative Diagnosis: Current Active Problems Cervical myelopathy (Acute) Cervical spondylosis with myelopathy (Acute) Cervical spondylosis with myelopathy and radiculopathy (Acute) Cervical stenosis of spine (Acute) Lower extremity weakness (Acute) Quadriplegia and quadriparesis (Acute) Upper extremity weakness (Acute) Postoperative Diagnosis: Current Active Problems Cervical myelopathy (Acute) Cervical spondylosis with myelopathy (Acute) Cervical spondylosis with myelopathy and radiculopathy (Acute) Cervical stenosis of spine (Acute) Lower extremity weakness (Acute) Quadriplegia and quadriparesis (Acute) Upper extremity weakness (Acute) Procedure(s) Performed: C2-T2 POSTEROLATERAL INSTRUMENTED FUSION C2-T2 SEGMENTAL INSTRUMENTATION C2-T1 BILATERAL LAMINECTOMY, FACETECTOMY AND FORAMINOTOMY USE OF IONM Implants: -KENYON ALBERTA POSTERIOR CERVICAL SYSTEM -AUTOGRAFT -ALLOGRAFT Anesthesia: ADA Surgeon: Og Piedra Mac Developer #1: Erica Mancilla (WAS PRESENT AND ASSISTED WITH ALL ASPECTS OF THE CASE FROM POSITION TO DRESSING PLACEMENT) Estimated Blood Loss (ml): 250 IV fluids (ml): 1,200 Urine output (ml): 400 Pathology: none sent Condition: stable Disposition: PACU Indications for Procedure: Bruce Banerjee is a 73 yo male presenting for evaluation of inability to ambulate with UE and LE weakness, fine motor disruption, inability to perform ADLs, newly wheelchair bound. It was my pleasure to have seen and examined Bruce Banerjee. In our visit today we have had a chance to go over subjective complaints, physical examination findings and treatments including the natural course history without intervention and various interventional options. The patients imaging demonstrates severe cervical stenosis due to spondylosis, HNP and spondylolisthesis of C4-5, C5-6, C6-7. There is disc height collapse, facet arthropathy that contribute. There are pincer lesions at each level causing severe stenosis along with mylomalacial changes at these levels that is severe. No fracture or lesion otherwise noted. On physical exam, Bruce Banerjee demonstrates Cervical myelopathy, inability to ambulate for the last two months, increased clumbsiness, inability to perform ADLs on his own that is progressive. Progressive decline in fine motor skills, muscle wasting of intrinsic hands and arms. Atropy and weakness of UE and LE BL. Gait imbalance. 4/5 UE and LE with 3/5 development technologist and tricep as well as shoulder abduction. +Burgos's BL; +clonus b/l; Neg Babinski. Diadokinesis not intact. Dexterity not intact. Dermatomal deficits including C3-7 global and L4-S1 due to lumbar pathology as well simultaneously. I have explained to the patient that as their condition progresses it will cause further neurological deficits and eventual paralysis. Based on the patients imaging, physical exam, and the rapid progression and disabling nature of their symptoms, at this time I recommend surgery in the form or a: Stage I: C3-7 ANTERIOR CERVICAL DISCECTOMY AND FUSION WITH STAGE II: C2-T2 DECOMPRESSION AND FUSION. I discussed the risk and benefits of this procedure at length with Bruce Banerjee. The patient and family agreed to considered pursuing the procedure abovementioned. Prior to surgery, she should follow up with her PCP (Cardio, ID, IM etc) for clearance. Questions were invited and answered, and the patient wishes to proceed as outlined below. Currently, I am recommendin. STAGE II: C2-T2 DECOMPRESSION AND FUSION Description of Procedure: C2-T2 decompression and fusion The patient was seen and examined in the preoperative area. All preoperative protocols were followed. Informed consent was obtained, risks and benefits of the procedure were discussed at length. Risks including bleeding infection damage to the surrounding tissue and risk of reoperation were discussed with the patient. Risk of anesthesia up to and including was discussed with the patient. These are outlined in the risk review. They were willing to accept these risks and all of the risks of surgery. The patient was given a weight- based dose of antibiotics in the form of 2 g Ancef. The patient was seen and evaluated by the anesthesia team who deemed them fit for surgery. The site was marked, the patient was willing to proceed with the procedure. The patient was transferred to the operative suite by the Department of anesthesia. They were then drifted off to sleep by the department anesthesia and GETA was performed. The patient tolerated this well. pre-positioning motors were obtained.Dunham in place from the floor. Once confirmation of lines and ventilation Barry head clamp was placed on the patient and secured and the patient was transferred to a [prone Floyd table very carefully] with the Barry global analytics head the head was secured and placed into an optimal position x- ray confirmed this position. Post-positioning motors remained stable. All bony prominences including wrists, elbows, axilla, chest, hips, and thighs, and feet were padded very well. Special attention was paid to the genitalia and these were padded accordingly. SCDs were placed on bilateral lower extremities and were connected. Arms were well padded and placed tucked at his side thumbs down. Shoulders were gently taped down to the table.. Once in position, again we confirmed good ventilation capabilities and that lines were running appropriately. The patient's posterior cervical spine was then exposed. 1010s were placed outlining the incision site. Standard alcohol was used to clean the incision site and allowed to dry. C-arm was used to biomark the patient and confirm level for incision which was marked with a skin marker. Operative briefing was performed with all teams and everyone in agreement to proceed. The patient was then prepped and draped in a normal sterile fashion. Timeout was then performed and all parties were in agreement with the procedure to be performed. Midline skin incision made over the previously bio-marked area and dissection taken down midline to the SP of C2-T2. Subperiosteal dissection taken out over the lamina and lateral masses of C2-C7 and TVP of T1 and T2. Once exposure complete, the wound was irrigated and the C-arm brought in for imaging. A penfield 4 was used to bluntly dissect the medial border of C2 pedicle and placed for guidance. C arm used and a bharat hole made for the starting point. The C2 pedicle was then drilled in 2 mm increments to 16 mm using a ball tip feeler in between each drill session to make sure within the 4 self with a good bottom. Once this was accomplished a screw was selected and placed under lateral fluoroscopic guidance. Screw had a good purchase. This was then repeated on the contralateral side. AP confirmed good placement of both screws. We then proceeded to the T1 and T2 screws bilaterally. A high speed bharat was used to remove the facet joint of C7 and to create a starting point for T1 and similarly, T1 facet for T2. Pedicle finder was then passed into T1 and T2 and imaging taken to confirm placement this was then removed and a tap placed ball-tipped probe was then placed and 4 self of pedicle fell with good bottom. Screw was then measured and placed intoT1 and T2. This is repeated on the contralateral side. Imaging confirmed good placement of all 4 thoracic screws. The wound was then irrigated. Lateral mass screws were then drilled to 12 mm and placed at each level from C3-6. Each had a good bite. Rods were then sized and selected and cut to length. They were bent accordingly and lordosis and to fit the occiput plate. These were then secured into C2 bilaterally and then sequentially reduced into lateral mass screws and T1 and T2 screws without issues. All set screws were placed and were then final tightened and the position. Bilateral laminectomy, facetectomy and foraminotomies were then done from C2-T1 using high speed bharat, kerrison rongeur and upbiting curette. Bilateral laminotomy troughs were made with bharat followed by curette to release ligamentum. Rongure was then used to gently remove the lamina and facets posteriorly without issues. Meticulous hemostasis was performed after.. Motors were run before and after decompression and they remain stable. Good pulsations of the cord were noted after decompression. Foraminotomies then performed with kerrison rongeur and clean up of the laminectomy site. The wound was then copiously irrigated with 3 L of Ancef irrigation followed by 3 L of gentamicin irrigation followed by 3 L of normal sterile saline. Facet joints were drilled at each level to allow for fusion Surgicel was placed over the dura. MagnetOs were placed in the posterior lateral gutters along with autograft.. This was impacted into position for fusion. 2 g of powdered vancomycin was then placed deep within the wound and a deep drain was placed. We then proceeded with layered closure first in the deep fascia with #1 PDS then in the deep fascia followed by a running #1 stratafix. 0 Vicryl was used in the deep subq fascia and an 0 PDS stratafix used in the subdermal layer. Skin amanda then approximated skin edges. The wound edges approximated very well. The wound was then cleaned and dressed sterilely with an operative foam dressing 4 x 4 and Tegaderm. The drain had good suction. The patient was placed in a hard cervical collar. The patient was transferred back to their hospital bed atraumatically. Barry head clamp was removed and pin sites were clear. Drain continued to hold suction. Patient was placed in a hard collar Patient was then awakened and extubated by the department of anesthesia having tolerated the procedure very well with no complications. They were transferred to the postoperative care unit in stable condition.
[2024-02-01] MEDS: HYDROmorphone 0.5 MG/0.5 ML SYRINGE IVP PRN (12:36)
[2024-02-01 13:22] VITALS: BMI 22.5
--- NOTE | 2024-02-01 15:45 | P.PN ---
Subjective Progress Note Date: 02/01/24 73-year-old male patient with past medical history significant for hypertension, osteoarthritis, GERD, history of pancreatic cancer status post chemotherapy and Whipple's procedure in 2016, history of heart murmur who was following orthopedic for worsening low back pain and progressive difficulty in ambulation since August. Patient does not remember any inciting event in the epidural, patient reported that he he noted that towards the end of the month he was losing the ability to walk. Patient felt his legs were progressively getting more wobbly, was also feeling more unsteady, reported losing his balance and also was unable to hold onto objects. Patient stated that he has been seen by [facility] and physical therapy without much relief. Patient had MRI of brain and lower back. MRI lower back showed L5-S1 spondylosis with listhesis. Patient reported bilateral lower extremity weakness, numbness, tingling as well as medial thigh numbness and tingling. Patient also reported weakness of upper e xtremities. Patient also had MRI of the neck done and read alert was sent to orthopedics and patient was advised to come to the ED. 01/27--patient was seen and examined today. No issues overnight. Vital stable. Blood pressure 147/78. Saturating 92% on room air. 01/28--patient was seen and examined today. No issues overnight. Status post ACDF C3-C7 today. 01/29--patient was seen and examined today. Patient sitting up in chair, complaining of neck pain, got worse after patient ambulated. Complaining of bilateral shoulder pain, reported improvement in lower extremity weakness. REYES drain in place. Patient scheduled for stage II C2-T2 decompression and fusion for , 02/01/2024. Incentive spirometry, PT/OT consult. Orthopedic spine following. 01/31/2024 Patient is seen in follow-up today being followed by orthopedics and scheduled to undergo stage II of the decompression and fusion on 02/01/2024. Patient reports his initial surgery was earlier this week anteriorly. Patient continues with neck collar and currently up in the chair. Patient to continue on bowel regimen and recommend scheduled as well as as needed as patient reports he is passing gas but did not have much of a bowel movement although he is not quite reporting constipation. Continue to encourage incentive spirometer and increase activity as tolerated. PT/OT therapy once cleared by orthopedics 02/01/2024 Patient was taken to the OR by orthopedics and is scheduled to undergo post lateral fusion of C2-T2 with laminectomy and foraminotomy secondary to severe cervical stenosis. Will await official surgical report REVIEW OF SYSTEMS: CONSTITUTIONAL: No fever or chills. Complains of neck pain. CARDIOVASCULAR: No chest pain, palpitations or syncope. PULMONARY: No shortness of breath, no cough, sore throat. GASTROINTESTINAL: No nausea, vomiting, diarrhea, abdominal pain. : No Dysuria, urgency, frequency. Extremities: No edema. NEUROLOGICAL: No headaches, no weakness, or numbness PHYSICAL EXAMINATION: GENERAL: The patient is A&O x3, NAD HEENT: EOMI, Sclerae anicteric, Moist Mucous membranes Neck: Cervical collar in place, REYES drain in place, decreased range of motion. PULMONARY: Equal breath souds B/L, No wheezing, No crackles. CARDIOVASCULAR: S1, S2 present. No murmurs, rubs, or gallops. ABDOMEN: Soft, nontender, nondistended, normoactive bowel sounds. No guarding or rebound tenderness. MUSCULOSKELETAL: No edema, No cyanosis. No clubbing. Normal ROM. Intact peripheral pulses. EXTREMITIES: No cyanosis, clubbing, or pedal edema. NEUROLOGICAL: CN 2-12 grossly intact. No FND Skin: No Rash Assessment: Cervical stenosis with myelopathy and radiculopathy with bilateral upper and lower extremity weakness with numbness, status post ACDF C3-7 on 01/29/2024. Plan for posterior intervention today 02/01/24 Posterior C2-T2 decompression and fusion. MRI lumbar spine showed L5-S1 spondylosis with listhesis. MRI cervical spine:Images reviewed demonstrate multilevel spondylosis with HNP and severe stenosis C3-7 with severe cord signal changes at every level along with foraminal stenosis. There are pincer lesions at C3-7 levels with severe central stenosis noted. Flattened CL due to collapse of disc spaces as well as spondylosis. Severe facet arthrosis noted. No fractures. No lesions C0-1 and C1-2 stable. Hypertension history History of pancreatic cancer GERD GI prophylaxis DVT prophylaxis Full code Plan: Patient continues with hard collar with orthopedics following scheduled to undergo posterior decompression today 02/01/2024. Will await orthopedic report Follow-up on repeat labs and replace electrolytes per protocol Home medications reviewed and resumed as appropriate Continue to encourage incentive spirometer at least 10 times every hour while awake Continue bowel regimen scheduled and as needed We will continue to follow with orthopedics during hospitalization. Thank you kindly for this consultation. The impression and plan of care has been dictated by Meera Fitzgerald, Nurse Practitioner as directed. Dr. Herve MD I have performed a history and examination and MDM of this patient, discussed the same with the dictator, and agree with the dictator's assessment and plan as written ,documented as a scribe. Based on total visit time, I have performed more than 50% of the visit. Objective - Vital Signs Vital signs: Vital Signs Temp 97.8 F 02/01/24 14:00 Pulse 84 02/01/24 14:45 Resp 17 02/01/24 14:00 BP 135/82 02/01/24 14:45 Pulse Ox 98 02/01/24 14:45 FiO2 Intake & Output 01/31/24 02/01/24 02/01/24 18:59 06:59 18:59 Intake Total 200 1602 Output Total 1999 475 Balance -1800 1127 Weight 71.214 kg Intake: IV 200 1602 Output: Urine 1999 325 Estimated Blood Loss 150 Other: Voiding Method Indwelling Catheter Indwelling Catheter Indwelling Catheter # Voids 0 1 - Labs CBC & Chem 7: 01/31/24 11:30 01/31/24 11:30
[2024-02-01] MEDS: ALPRAZolam 0.25 MG TAB PO PRN (17:17)
--- NOTE | 2024-02-01 19:40 | XR ---
EXAMINATION TYPE: XR cervical spine limited, FL guidance operating room DATE OF EXAM: 02/01/2024 Clinical History: 73-year-old male POST CERVICAL FUSION Fluoroscopy: 3 images submitted. C2-T2 Fusion 58sec fluoro time 1.[address] Piedra
--- NOTE | 2024-02-01 19:59 | CT ---
EXAMINATION TYPE: CT cervical spine wo con DATE OF EXAM: 02/01/2024 COMPARISON: 01/26/2024 HISTORY: Post op C2-T2 decompression and fusion CT DLP: 312.9 mGycm CONTRAST: None CT of the cervical spine is performed in the axial plane at 2 mm thick sections. Reconstructed image s in the coronal, and sagittal plane are reviewed on the computer. Postsurgical changes are present from pedicle screws and fixation rods cervical spine is extends C2 t hrough T1. Postsurgical soft tissue changes are noted in the paraspinal regions. No spinal canal sten osis or postlaminectomy Vertebral body alignment is normal. Disc spacers are present C3-4 through C6-7. Some mild narrowing of vertebral body height at C6 may be present. This appears stable from compariso n. Uncovertebral joint hypertrophy and foraminal narrowing appears to be present greatest right C3-4 svitlana aterally C4-5 and left C5-6. IMPRESSION: 1. Postsurgical changes with fixation screws and rods and laminectomies. 2. Disc spacers present.
[2024-02-02 05:30] LABS: HCT 40.2 % (39.0-53.0); HGB 13.9 gm/dL (13.0-17.5); MCH 33.8 pg (25.0-35.0); MCHC 34.6 g/dL (31.0-37.0); MCV 97.8 fL (80.0-100.0); Mean Platelet Volume 8.8; Platelet Count 226 k/uL (150-450); RBC 4.11 m/uL (4.30-5.90); RDW 12.1 % (11.5-15.5)
[2024-02-02 05:40] LABS: ALT 19 U/L (4-49); AST 39 U/L (17-59); African American GFR (CKD) >90 (>60 ml/min/1.73 sqM); Albumin 3.3 g/dL (3.5-5.0); Albumin/Globulin Ratio 1.4; Alkaline Phosphatase 84 U/L (38-126); Anion Gap 6 mmol/L; Blood Urea Nitrogen 19 mg/dL (9-20); Calcium 9.2 mg/dL (8.4-10.2); Carbon Dioxide 27 mmol/L (22-30); Chloride 102 mmol/L (98-107); Globulin 2.4 g/dL; Glucose 112 mg/dL (74-99); Non-African American GFR(CKD) >90 (>60 ml/min/1.73 sqM); Potassium 4.4 mmol/L (3.5-5.1); Sodium 135 mmol/L (137-145); Total Protein 5.7 g/dL (6.3-8.2)
--- NOTE | 2024-02-02 10:02 | P.PN ---
Subjective Progress Note Date: 02/02/24 Principal diagnosis: Abnormal MRI findings Cervical myelopathy (Acute) Cervical stenosis of spine (Acute) Quadriplegia and quadriparesis (Acute) Upper extremity weakness (Acute) Lower extremity weakness (Acute) Cervical spondylosis with myelopathy (Acute) Cervical spondylosis with myelopathy and radiculopathy Patient seen and examined this morning. Patient is resting comfortably in bed. He reports his pain is managed on current regimen. Encouraged patient to utilize oral pain medication. Surgical dressing to the anterior cervical spine, dressing is CDI. REYES drain is present and patent, 0ml output overnight. Surgical incision to the posterior cervical spine, dressing is CDI with hemovac present with 150ml output overnight. Patient states he has had an increase in oral mucus and has been using suction to assist with clearing his mouth. Patient continues to have numbness and tingling to the bilateral hands as prior to surgery. Discussed with patient that recovery of the nerves will take time. He verbalizes understanding. Continue to encourage patient to work with physical therapy and to use incentive spirometer while awake. No acute concerns at this time. Objective - Vital Signs Vital signs: Vital Signs Temp 98.8 F 02/02/24 06:50 Pulse 80 02/02/24 06:50 Resp 17 02/02/24 06:50 BP 135/75 02/02/24 06:50 Pulse Ox 97 02/02/24 06:50 FiO2 Intake & Output 02/01/24 02/02/24 02/02/24 18:59 06:59 18:59 Intake Total 1702 Output Total 975 565 Balance 727 -565 Weight 71.214 kg Intake: IV 1602 Oral 100 Output: Drainage 115 Neck 0 Posterior Neck 115 Urine 825 450 Estimated Blood Loss 150 Other: Voiding Method Indwelling Catheter Indwelling Catheter - Exam Physical Examination General: The patient is awake and alert, in no acute distress Skin: Skin is warm and dry with no obvious rashes or lesions. Surgical dressin g to the anterior cervical spine, dressing is CDI. REYES drain is present and patent, 0ml output overnight. Surgical incision to the posterior cervical spine, dressing is CDI wth hemovac present with 150ml output overnight. Eye: Pupils are equal, round and reactive to light, extra-ocular movements are intact; there is normal conjunctiva bilaterally. Neck: The neck is supple, there is mild tenderness around incision site, limited range of motion due to surgical intervention and hard cervical collar in place. Cardiovascular: There is a regular rate and rhythm. No murmur, rub or gallop is appreciated. Respiratory: Respirations are non-labored, breath sounds are equal. Gastrointestinal: Soft, non-distended, non-tender abdomen. Back: There is no tenderness to palpation in the midline, paralumbar, parathoracic or buttocks region. There is no obvious deformity . Musculoskeletal: ROM limited secondary to pain and stiffness from surgical procedure. Right: Shoulder abduction 4/5, elbow flexors 4/5, wrist dorsiflexors 4-/5. finger abductor 4-/5, toll test worker 4-/5, hip flexor 4/5, knee flexor 4/5, ankle dorsiflexor 4/5, ankle plantarflexion 4/5 and extensor hallucis 4/5. Left: Shoulder abduction 4/5, elbow flexors 4/5, wrist dorsiflexors 4/5. finger abductor 4-/5, toll test worker 4-/5, hip flexor 4-/5, knee flexor 4/5, ankle dorsiflexor 4/5, ankle plantarflexion 4/5 and extensor hallucis 4/5. Neurological: CN 2-12 intact. There are no obvious motor or sensory deficits. Movement and coordination equal and intact. Sensory exam to light touch intact C5-T1 and intact from L2-S1. Reflexes 2/4 in bilateral upper and lower extremities. Negative Hoffmans, babinski, and clonus signs. Psychiatric: Cooperative, appropriate mood & affect, normal judgment. - Labs CBC & Chem 7: 02/02/24 04:58 02/02/24 04:58 Labs: Abnormal Lab Results - Last 24 Hours (Table) 02/02/24 02/02/24 Range/Units 04:58 04:58 WBC 15.0 H (3.8-10.6) k/uL RBC 4.11 L (4.30-5.90) m/uL Sodium 135 L (137-145) mmol/L Creatinine 0.59 L (0.66-1.25) mg/dL Glucose 112 H (74-99) mg/dL Total Protein 5.7 L (6.3-8.2) g/dL Albumin 3.3 L (3.5-5.0) g/dL Assessment and Plan Assessment: Postop day 4: C3-C7 ACDF Postop Day 1: C2-T2 decompression and fusion Plan: -Appreciate physician practice consultant and team management. -Activity: Ambulate QID, OOB all meals, up and about, limit lifting bending twisting to less than 5 lbs. Use walker or cane if needed for stability. -Daily PT/OT, increase ambulation strength and balance. -Hard cervical collar on at all times. -Pain control: Adequate at this time -Meds: reviewed -GI ppx: senVishal munoz -DC marks: May remove tomorrow 02/03/24 at 0600 -DVT PPX: Mechanical -Hygiene: Shower today. Maintain dressing clean and dry. -Drains: Maintain for now. Continue to monitor and record output q shift. -Encourage IS 10x/hr -Dispo: Clinically pending *I reviewed and discussed this case with my attending Dr. Piedra, whom has reviewed this chart and films and is in agreement with assessment and plan of care as outlined above. I have personally seen and examined the patient, performed the documentation and the assessment and plan as written. Number of minutes spent on the visit: 20m.
[2024-02-02] MEDS: HYDROcodone/APAP 7.5-325MG 1 EACH TAB PO PRN (10:50)
[2024-02-02] MEDS ORDERED: IPRATROPIUM-ALBUTEROL 3 ML NEB INHALATION PRN (13:10)
[2024-02-02] MEDS: guaiFENesin 600 MG TABLET.ER PO SCH (13:39)
--- NOTE | 2024-02-02 13:48 | XR ---
EXAMINATION TYPE: XR chest 1V portable DATE OF EXAM: 02/02/2024 Comparison: 10/02/2015 Clinical History: 73-year-old male shortness of breath Findings: Midline skin amanda at the neck. Posterior cervical fusion hardware noted. A cervical brace projects over the lung apices limiting some evaluation. Suspect some underlying pneumomediastinum from the pa tient's surgery. Patchy retrocardiac and medial right basilar opacity are present. No sizable pleural effusion. Heart normal size. Impression: 1. Postoperative changes to the cervical spine. Suspect some underlying pneumomediastinum likely air tracking from the patient's surgery. 2. There is patchy medial right basilar opacity and additional patchy retrocardiac opacity. Consider postoperative atelectasis versus early developing infiltrates.
[2024-02-03] MEDS: HYDROcodone/APAP 5-325MG 1 EACH TAB PO PRN (02:34)
--- NOTE | 2024-02-03 08:02 | P.PN ---
Subjective Progress Note Date: 02/02/24 73-year-old male patient with past medical history significant for hypertension, osteoarthritis, GERD, history of pancreatic cancer status post chemotherapy and Whipple's procedure in 2016, history of heart murmur who was following orthopedic for worsening low back pain and progressive difficulty in ambulation since August. Patient does not remember any inciting event in the epidural, patient reported that he he noted that towards the end of the month he was losing the ability to walk. Patient felt his legs were progressively getting more wobbly, was also feeling more unsteady, reported losing his balance and also was unable to hold onto objects. Patient stated that he has been seen by [facility] and physical therapy without much relief. Patient had MRI of brain and lower back. MRI lower back showed L5-S1 spondylosis with listhesis. Patient reported bilateral lower extremity weakness, numbness, tingling as well as medial thigh numbness and tingling. Patient also reported weakness of upper e xtremities. Patient also had MRI of the neck done and read alert was sent to orthopedics and patient was advised to come to the ED. 01/27--patient was seen and examined today. No issues overnight. Vital stable. Blood pressure 147/78. Saturating 92% on room air. 01/28--patient was seen and examined today. No issues overnight. Status post ACDF C3-C7 today. 01/29--patient was seen and examined today. Patient sitting up in chair, complaining of neck pain, got worse after patient ambulated. Complaining of bilateral shoulder pain, reported improvement in lower extremity weakness. REYES drain in place. Patient scheduled for stage II C2-T2 decompression and fusion for , 02/01/2024. Incentive spirometry, PT/OT consult. Orthopedic spine following. 01/31/2024 Patient is seen in follow-up today being followed by orthopedics and scheduled to undergo stage II of the decompression and fusion on 02/01/2024. Patient reports his initial surgery was earlier this week anteriorly. Patient continues with neck collar and currently up in the chair. Patient to continue on bowel regimen and recommend scheduled as well as as needed as patient reports he is passing gas but did not have much of a bowel movement although he is not quite reporting constipation. Continue to encourage incentive spirometer and increase activity as tolerated. PT/OT therapy once cleared by orthopedics 02/01/2024 Patient was taken to the OR by orthopedics and is scheduled to undergo post lateral fusion of C2-T2 with laminectomy and foraminotomy secondary to severe cervical stenosis. Will await official surgical report 02/02/2024 Patient is seen and evaluated in follow-up postop day 1 underwent posterior de compression. Patient is afebrile with no reports of chest pain or palpitations. Patient denies shortness of breath although does have a cough and irritation of the throat and esophagus which could be secondary to surgery yesterday. Patient reports is having some congestion with phlegm that is more productive in the a.m. and will obtain a chest x-ray. Patient is afebrile and will follow-up on r epeat labs. Patient has been instructed to continue with incentive spirometer frequently including 10 times every hour while awake. REVIEW OF SYSTEMS: CONSTITUTIONAL: No fever or chills. Complains of neck pain. CARDIOVASCULAR: No chest pain, no reports of palpitations or syncope. PULMONARY: No shortness of breath, reports somewhat productive cough, reports irritated and sore throat. GASTROINTESTINAL: No nausea, vomiting, diarrhea, abdominal pain. : No Dysuria, urgency, frequency. Extremities: No edema. NEUROLOGICAL: No headaches, no weakness, or numbness PHYSICAL EXAMINATION: GENERAL: The patient is A&O x3, NAD elderly appearing HEENT: EOMI, Sclerae anicteric, Moist Mucous membranes Neck: Cervical collar in place, REYES drain in place, decreased range of motion. PULMONARY: Diminished breath sounds bilaterally otherwise clear to auscultation other than noted bronchial congestion, no accessory muscle use, no wheezing or crackles noted CARDIOVASCULAR: S1, S2 present. No murmurs, rubs, or gallops. ABDOMEN: Soft, thin, nontender, nondistended, normoactive bowel sounds. No guarding or rebound tenderness. MUSCULOSKELETAL: No edema, No cyanosis. No clubbing. Normal ROM. Intact pe ripheral pulses. EXTREMITIES: No cyanosis, clubbing, or pedal edema. NEUROLOGICAL: CN 2-12 grossly intact. No FND Skin: No Rash Assessment: Cervical stenosis with myelopathy and radiculopathy with bilateral upper and lower extremity weakness with numbness, status post ACDF C3-7 on 01/29/2024. St atus post posterior decompression on 02/02/2024 MRI lumbar spine showed L5-S1 spondylosis with listhesis. MRI cervical spine:Images reviewed demonstrate multilevel spondylosis with HNP and severe stenosis C3-7 with severe cord signal changes at every level along with foraminal stenosis. There are pincer lesions at C3-7 levels with severe central stenosis noted. Flattened CL due to collapse of disc spaces as well as spondylosis. Severe facet arthrosis noted. No fractures. No lesions C0-1 and C 1-2 stable. Hypertension history History of pancreatic cancer GERD GI prophylaxis DVT prophylaxis Full code Plan: Patient continues with hard collar with orthopedics following and is status post posterior decompression 02/01/2024. Follow-up on repeat labs and replace electrolytes per protocol Home medications reviewed and resumed as appropriate Patient having some bronchial congestion and phlegm production on exam and chest x-ray is ordered and likely atelectasis with recent surgical changes noted. Patient has been counseled extensively on the importance of continued incentive spirometer use at least 10 times every hour while awake. Patient reporting some throat discomfort likely secondary to surgery yesterday. Patient denies having difficulty swallowing although nursing staff reports on thin liquids he is having a couple of choking episodes although will take his medications in pudding or applesauce with no difficulty monitor closely for any signs of aspiration and strongly recommend aspiration precautions. PT/OT therapy to evaluate We will continue to follow with orthopedics during hospitalization. Thank you kindly for this consultation. The impression and plan of care has been dictated by Meera Fitzgerald, Nurse Practitioner as directed. Dr. Herve MD I have performed a history and examination and MDM of this patient, discussed the same with the dictator, and agree with the dictator's assessment and plan as written ,documented as a scribe. Based on total visit time, I have performed more than 50% of the visit. Objective - Vital Signs Vital signs: Vital Signs Temp 98.7 F 02/03/24 01:22 Pulse 89 02/03/24 01:22 Resp 18 02/03/24 01:22 BP 127/76 02/03/24 01:22 Pulse Ox 93 L 02/03/24 01:22 FiO2 Intake & Output 02/02/24 02/03/24 02/03/24 18:59 06:59 18:59 Intake Total 240 Output Total 1600 790 Balance -1600 -550 Intake: IV 240 Lactated Ringers 1,000 ml 240 @ 20 mls/hr IV .Q24H COUNTS INCLUDE 234 BEDS AT THE [facility] Rx#:[id number] Output: Drainage 40 Neck 40 Urine 1600 750 Other: Voiding Method Indwelling Catheter # Voids 1 2 - Labs CBC & Chem 7: 02/02/24 04:58 02/02/24 04:58
[2024-02-03] MEDS ORDERED: DEXAMETHASONE SOD PHOSPHATE 4 MG/ML 1 ML VIAL IV PRN (08:37)
--- NOTE | 2024-02-03 10:05 | P.PN ---
Subjective Progress Note Date: 02/03/24 Principal diagnosis: Bilateral upper and lower extremity weakness, multilevel cervical spondylosis, cervical stenosis, bilateral upper and lower extremity radiculopathy, cervical myelopathy Patient was evaluated today at bedside. Patient is resting comfortably in bed. Patient is doing very well at this time. Nursing did bring to my attention and abnormal heart rhythm, cardiology has been consulted. He feels that the pain is tolerable with current medications. He is passing gas, he has not had a bowel movement. He is urinating with no issues. Denies any headaches, li ghtheadedness, chest pain or shortness of breath. Objective - Vital Signs Vital signs: Vital Signs Temp 98.1 F 02/03/24 08:00 Pulse 89 02/03/24 08:00 Resp 17 02/03/24 08:00 BP 126/75 02/03/24 08:00 Pulse Ox 96 02/03/24 08:00 FiO2 Intake & Output 02/02/24 02/03/24 02/03/24 18:59 06:59 18:59 Intake Total 240 200 Output Total 1600 790 120 Balance -1600 -550 80 Intake: IV 240 Lactated Ringers 1,000 ml 240 @ 20 mls/hr IV .Q24H [facility] Rx#:[id number] Oral 200 Output: Drainage 40 120 Neck 40 60 Posterior Neck 60 Urine 1600 750 Other: Voiding Method Indwelling Catheter Urinal # Voids 1 2 2 - Exam Gen: AOx3, NAD VSS stable at this time Integument: Anterior incision is well-healing, REYES drain was removed, new bandage applied. Bandaging material of the posterior incision is well-placed. The Hemovac is putting out mild/moderate bloody serosanguineous drainage Palpation: Tenderness with palpation of the paraspinal cervical region ROM: Chronic right shoulder rotator cuff issues, he is very limited with elevation and abduction. Full range of motion in all major muscle groups of the bilateral lower extremities Sensory Exam: Senory exam to light touch is intact C5-T1 Senosry exam to light touch is intact L2-S1 Motor: 4/5 strength appreciated in the bilateral upper extremities with shoulder elevation, shoulder abduction, elbow flexion, 3/5 strength appreciated bilateral upper extremities with elbow extension, wrist extension, intrinsics, conductor/brakeman 3+/5 strength appreciated bilateral lower extremities with hip flexion, knee extension, knee flexion, plantarflexion, dorsiflexion, EHL, FHL Reflexes: 3/4 in all UE and LE Positive Melodie's and clonus appreciated bilaterally - Labs CBC & Chem 7: 02/02/24 04:58 02/02/24 04:58 Assessment and Plan Assessment: Cervical myelopathy Postoperative day #5 status post C3-C7 ACDF Postop day #2 status post C2-T2 posterior decompression and fusion Bilateral upper and lower extremity weakness Plan: Pain control, continue current medications along with stool softeners Cardiology recommendations appreciated Internal medicine recommendations appreciated Encourage incentive spirometer Continue use of hard collar, prescription for additional soft pads will be placed prior to discharge Weight-bear as tolerated with walker, patient must have assistance at bedside when ambulating Continue PT/OT Discharge planning: Plan for discharge to subacute rehab in the next 48/72 hours Will continue to follow patient during hospital stay Time with Patient: Less than 30
[2024-02-03] MEDS: DILTIAZEM DRIP BOLUS FROM BAG 1 MG SOLN IV ONE (12:49)
[2024-02-03] MEDS: DILTIAZEM 125 MG in SODIUM CHLORIDE 0.9% 100 ML IV SCH (12:50)
[2024-02-03] MEDS: METOPROLOL TARTRATE 50 MG TAB PO SCH (13:20)
--- NOTE | 2024-02-03 13:34 | P.CRDCN ---
History of Present Illness Consult date: 02/03/24 History of present illness: HISTORY OF PRESENTING ILLNESS Patient is a 73-year-old male with past medical history of hypertension, osteoarthritis, GERD, history of pancreatic cancer s/p chemotherapy and Whipple's procedure in 2016. Patient underwent cervical spine surgery on 02/02/2024. On 02/03/2024 patient was noticed to be in atrial fibrillation with RVR for which cardiology was consulted. On evaluating patient at bedside there is noted that patient is in a flutter with heart rate of 150 bpm. Patient has a cervical spine collar in place. He denies any symptoms of chest pain chest pressure. His ECG does not show any significant ischemic. Patient does not appear volume overloaded. He denies any symptoms of lightheadedness or dizziness. REVIEW OF SYSTEMS 14 point review of system is negative except what is mentioned above in HPI. PHYSICAL EXAMINATION Vital signs reviewed. Head: Normocephalic. Eyes: Sclerae nonicteric. Neck: Brisk carotid upstroke, no jugular venous distention. Lungs: Clear to auscultation. Heart: Irregularly irregular, mild systolic murmur audible in aortic area Abdomen: Soft nontender, positive bowel sounds. Extremities: No edema, intact distal pulses. Neuro: Alert, oritented, no focal deficits. Detailed neuro exam was not performed. ASSESSMENT New onset atrial flutter with RVR Cervical stenosis with myelopathy and radiculopathy status post surgery 02/02/2024 Hypertension History of pancreatic cancer status post Whipple's procedure and chemotherapy GERD PLAN Obtain an echocardiogram Start IV heparin drip once cleared by surgery Start IV Cardizem drip after 10 mg of Cardizem bolus Start metoprolol titrate 50 mg twice daily Discontinue repeat. Continue losartan 100 mg daily Obtain magnesium level, NT proBNP, troponin, lipid, TSH, HbA1c levels Monitor telemetry, electrolytes and renal function Vamsi Hernández MD, FACC, RPVI Thank you for allowing [facility] to participate in this patient's care. Feel free to reach out in case of any followup questions. Past Medical History Past Medical History: Cancer, GERD/Reflux, Hypertension, Osteoarthritis (OA) Additional Past Medical History / Comment(s): DEAF LEFT EAR, RESTLESS LEG, Chronic Back Pain. Positive lymph node had whipple procedure 08/13/15. CHEMO TX, LAST 12/28/15. HX OF ULCER. SKIN CA EXC FROM CHEST. HX OF PANCREATIC CA. hx perforated bowel- sugery. heart murmur , rt shoulder pain with decreased ROM History of Any Multi-Drug Resistant Organisms: None Reported Past Surgical History: Cholecystectomy Additional Past Surgical History / Comment(s): PORT A CATH LEFT CHEST- removed, NAI EYE CATARACT, nai feet plantar fasciitis surgery, right thumb surgery from previous injury, Whipple procedure 08/13/15, HX OF PERF BOWEL FROM ULCER Past Anesthesia/Blood Transfusion Reactions: No Reported Reaction Past Psychological History: No Psychological Hx Reported Smoking Status: Former smoker Past Alcohol Use History: None Reported Past Drug Use History: None Reported - Past Family History Mother Family Medical History: No Reported History Brother(s) Family Medical History: Cancer Sister(s) Family Medical History: No Reported History Daughter(s) Family Medical History: No Reported History Father Family Medical History: Cancer Additional Family Medical History / Comment(s): PROSTATE Medications and Allergies Home Medications Medication Instructions Recorded Confirmed Type ALPRAZolam [Alprazolam] 0.25 mg PO BID PRN 06/23/16 01/26/24 History Pramipexole [Mirapex] 0.125 mg PO BID PRN 06/23/16 01/26/24 History Pramipexole [Mirapex] 0.125 mg PO HS 03/10/23 01/26/24 History Fish Oil/Dha/Epa [Fish Oil 1,200 1 cap PO BID 01/26/24 01/26/24 History mg Fish Oil] Losartan Potassium 100 mg PO DAILY 01/26/24 01/26/24 History Multivitamin (No Iron) 1 tab PO DAILY 01/26/24 01/26/24 History Naproxen Sodium [Aleve] 440 mg PO DAILY 01/26/24 01/26/24 History Omeprazole 20 mg PO HS 01/26/24 01/26/24 History amLODIPine [Norvasc] 5 mg PO HS 01/26/24 01/26/24 History oxyCODONE HCL [OxyIR] 5 mg PO TID PRN 01/26/24 01/26/24 History Allergies Allergy/AdvReac Type Severity Reaction Status Date / Time No Known Allergies Allergy Verified 01/26/24 17:54 Physical Exam Vitals: Vital Signs Temp Pulse Pulse Resp BP Pulse Ox 02/03/24 12:53 144 H 147/72 02/03/24 12:31 98.1 F 78 133 H 17 112/77 94 L 02/03/24 08:00 98.1 F 89 17 126/75 96 02/03/24 01:22 98.7 F 89 18 127/76 93 L 02/02/24 18:50 98.5 F 97 18 111/74 96 02/02/24 14:00 98.4 F 93 17 111/65 97 Intake and Output 02/02/24 02/03/24 02/03/24 22:59 06:59 14:59 Intake Total 240 200 Output Total 250 790 120 Balance -250 -550 80 Intake: IV 240 Lactated Ringers 1,000 ml 240 @ 20 mls/hr IV .Q24H [facility] Rx#:[id number] Oral 200 Output: Drainage 40 120 Neck 40 60 Posterior Neck 60 Urine 250 750 Other: Voiding Method Urinal # Voids 2 2 Results 02/02/24 04:58 02/02/24 04:58 Current Medications Generic Name Dose Route Start Last Admin Trade Name Freq PRN Reason Stop Dose Admin Acetaminophen 650 mg 01/26/24 16:53 02/01/24 20:00 Acetaminophen Tab 325 Mg Tab PO 650 mg Q6HR PRN Administration Mild Pain or Fever > 100.5 Hydrocodone Bitart/Acetaminophen 1 each 02/02/24 10:02 02/03/24 02:34 Hydrocodone/Apap 5-325mg 1 Each Tab PO 1 each Q4HR PRN Administration Pain Hydrocodone Bitart/Acetaminophen 1 each 02/02/24 10:02 02/02/24 10:50 Hydrocodone/Apap 7.5-325mg 1 Each Tab PO 1 each Q6HR PRN Administration Pain Al Hydroxide/Mg Hydroxide 15 ml 01/26/24 16:53 Mag Hydrox/Al Hydrox/Simeth 30 Ml Cup PO Q6HR PRN Indigestion Albuterol/Ipratropium 3 ml 02/02/24 13:10 Ipratropium-Albuterol 3 Ml Neb INHALATION RT-TID PRN Shortness Of Breath Or Wheezing Alprazolam 0.25 mg 01/26/24 18:23 02/03/24 11:22 Alprazolam 0.25 Mg Tab PO 0.25 mg BID PRN Administration Anxiety Bisacodyl 5 mg 01/26/24 16:53 01/29/24 16:23 Bisacodyl 5 Mg Tablet.Dr PO 5 mg DAILY PRN Administration Constipation Calcium Carbonate/Glycine 1,000 mg 01/26/24 16:53 Calcium Carbonate 500 Mg Chewable PO Q4HR PRN Dyspepsia Cyclobenzaprine HCl 10 mg 01/29/24 13:58 02/02/24 08:16 Cyclobenzaprine 10 Mg Tab PO 10 mg BID PRN Administration Muscle Spasm Dexamethasone Sodium Phosphate 4 mg 02/03/24 08:37 Dexamethasone Sod Phosphate 4 Mg/Ml 1 Ml Vial IV Q6HR PRN Nausea And Vomiting Guaifenesin 600 mg 02/02/24 13:15 02/03/24 09:28 Guaifenesin 600 Mg Tablet.Er PO 600 mg Q12HR [facility] Administration Heparin Sodium (Porcine) 0 unit 02/03/24 13:06 Heparin Sodium 1,000 Un/Ml (10ml Vl) IV PER PROTOCOL PRN Low PTT Protocol Hydromorphone HCl 1 mg 01/29/24 13:56 02/02/24 04:58 Hydromorphone 1 Mg/Ml 1 Ml Syringe IVP 1 mg Q3HR PRN Administration Pain SEVERE Hydromorphone HCl 0.5 mg 01/29/24 13:56 01/30/24 15:25 Hydromorphone 0.5 Mg/0.5 Ml Syringe IVP 0.5 mg Q3HR PRN Administration Pain MODERATE Lactated Ringer's 1,000 mls @ 20 mls/hr 02/01/24 12:30 02/03/24 12:50 Lactated Ringers IV Not Given .Q24H [facility] Diltiazem HCl 125 mg/ Sodium 125 mls @ 10 mls/hr 02/03/24 12:30 02/03/24 12:50 Chloride IV 10 mg/hr .[id number] [facility] 10 mls/hr Administration 10 MG/HR Heparin Sodium/Sodium Chloride 250 mls @ 8.546 mls/hr 02/03/24 13:15 25,000 unit/ Sodium Chloride IV .Q24H [facility] Protocol 12 UNITS/KG/HR Losartan Potassium 100 mg 01/27/24 09:00 02/03/24 09:28 Losartan 50 Mg Tab PO 100 mg DAILY [facility] Administration Metoprolol Tartrate 50 mg 02/03/24 13:00 02/03/24 13:20 Metoprolol Tartrate 50 Mg Tab PO 50 mg BID [facility] Administration Multivitamins 1 each 01/27/24 09:00 02/03/24 09:28 Multivitamins, Thera 1 Each Tab PO 1 each DAILY [facility] Administration Naloxone HCl 0.2 mg 01/26/24 16:53 Naloxone 0.4 Mg/Ml 1 Ml Vial IV Q2M PRN Opioid Reversal Oxycodone HCl 5 mg 01/26/24 18:23 02/03/24 11:47 Oxycodone Hcl 5 Mg Tab PO 5 mg TID PRN Administration Pain Pantoprazole Sodium 40 mg 01/26/24 21:00 02/02/24 20:10 Pantoprazole 40 Mg Tablet PO 40 mg HS [facility] Administration Polyethylene Glycol 17 gm 01/30/24 09:00 02/03/24 09:28 Polyethylene Glycol 3350 17 Gm Powd.Pack PO 17 gm DAILY [facility] Administration Pramipexole Dihydrochloride 0.125 mg 01/26/24 18:23 01/29/24 16:07 Pramipexole 0.125 Mg Tab PO 0.125 mg BID PRN Administration RESTLESS LEGS Pramipexole Dihydrochloride 0.125 mg 01/26/24 21:00 02/02/24 20:11 Pramipexole 0.125 Mg Tab PO 0.125 mg HS [facility] Administration Senna/Docusate Sodium 2 each 01/30/24 09:00 02/03/24 09:28 Sennosides-Docusate Sodium 1 Each Tab PO 2 each DAILY [facility] Administration Intake and Output 02/02/24 02/03/24 02/03/24 22:59 06:59 14:59 Intake Total 240 200 Output Total 250 790 120 Balance -250 -550 80 Intake: IV 240 Lactated Ringers 1,000 ml 240 @ 20 mls/hr IV .Q24H [facility] Rx#:[id number] Oral 200 Output: Drainage 40 120 Neck 40 60 Posterior Neck 60 Urine 250 750 Other: Voiding Method Urinal # Voids 2 2 02/02/24 04:58 02/02/24 04:58
[2024-02-03] MEDS: HEPARIN SOD,PORK IN 0.45% NACL 25,000 UNIT in 0.45% NACL 1 250ML.BAG IV SCH (13:44)
[2024-02-03] MEDS: HEPARIN SODIUM 1,000 UN/ML (10ML VL) IV ONE (13:45)
[2024-02-03 14:49] LABS: Basophils % (A) 0 %; Eosinophils # (A) 0.1 k/uL (0-0.7); Eosinophils % (A) 1 %; HCT 38.9 % (39.0-53.0); HGB 13.1 gm/dL (13.0-17.5); Lymphocytes % (A) 9 %; MCH 33.1 pg (25.0-35.0); MCHC 33.6 g/dL (31.0-37.0); MCV 98.3 fL (80.0-100.0); Mean Platelet Volume 7.8; Monocytes # (A) 0.8 k/uL (0-1.0); Monocytes % (A) 7 %; Neutrophils % (A) 81 %; Platelet Count 289 k/uL (150-450); RBC 3.96 m/uL (4.30-5.90); RDW 11.7 % (11.5-15.5)
[2024-02-03 15:13] LABS: Partial Thromboplastin Time 74.4 sec (22.0-30.0); Prothrombin Time 11.1 sec (10.0-12.5)
[2024-02-03 15:53] LABS: NT-Pro-B-Type Natriuretic Pept 395 pg/mL
--- NOTE | 2024-02-03 17:13 | P.PN ---
Subjective Progress Note Date: 02/03/24 Interval History: 73-year-old male patient with past medical history significant for hypertension, osteoarthritis, GERD, history of pancreatic cancer status post chemotherapy and Whipple's procedure in 2016, history of heart murmur who was following orthopedic for worsening low back pain and progressive difficulty in ambulation since August. Patient does not remember any inciting event in the epidural, p basilioient reported that he he noted that towards the end of the month he was losing the ability to walk. Patient felt his legs were progressively getting more wobbly, was also feeling more unsteady, reported losing his balance and also was unable to hold onto objects. Patient stated that he has been seen by [facility] and physical therapy without much relief. Patient had MRI of brain and lower back. MRI lower back showed L5-S1 spondylosis with listhesis. Patient reported bilateral lower extremity weakness, numbness, tingling as well as medial thigh numbness and tingling. Patient also reported weakness of upper extremities. Patient also had MRI of the neck done and read alert was sent to orthopedics and patient was advised to come to the ED. 01/27--patient was seen and examined today. No issues overnight. Vital stable. Blood pressure 147/78. Saturating 92% on room air. 01/28--patient was seen and examined today. No issues overnight. Status post ACDF C3-C7 today. 01/29--patient was seen and examined today. Patient sitting up in chair, complaining of neck pain, got worse after patient ambulated. Complaining of bilateral shoulder pain, reported improvement in lower extremity weakness. REYES drain in place. Patient scheduled for stage II C2-T2 decompression and fusion for , 02/01/2024. Incentive spirometry, PT/OT consult. Orthopedic spine following. 01/31/2024 Patient is seen in follow-up today being followed by orthopedics and scheduled to undergo stage II of the decompression and fusion on 02/01/2024. Patient reports his initial surgery was earlier this week anteriorly. Patient continues with neck collar and currently up in the chair. Patient to continue on bowel regimen and recommend scheduled as well as as needed as patient reports he is passing gas but did not have much of a bowel movement although he is not quite reporting constipation. Continue to encourage incentive spirometer and increase activity as tolerated. PT/OT therapy once cleared by orthopedics 02/01/2024 Patient was taken to the OR by orthopedics and is scheduled to undergo post lateral fusion of C2-T2 with laminectomy and foraminotomy secondary to severe cervical stenosis. Will await official surgical report 02/02/2024 Patient is seen and evaluated in follow-up postop day 1 underwent posterior decompression. Patient is afebrile with no reports of chest pain or palpitations. Patient denies shortness of breath although does have a cough and irritation of the throat and esophagus which could be secondary to surgery yesterday. Patient reports is having some congestion with phlegm that is more productive in the a.m. and will obtain a chest x-ray. Patient is afebrile and will follow-up on repeat labs. Patient has been instructed to continue with incentive spirometer frequently including 10 times every hour while awake. 02/03/2024--patient was seen and examined today. Complains of neck pain worse with exertion. Patient underwent into A-fib with RVR for which cardiology consulted. Patient was noted to have atrial flutter with heart rate going into 150 bpm. Patient was asymptomatic. Blood pressure stable. EKG negative for any ischemic changes. Cardiology recommended to start Cardizem drip, heparin drip once cleared by surgery, echocardiogram, started metoprolol. Assessment and plan: Cervical stenosis with myelopathy and radiculopathy with bilateral upper and lower extremity weakness with numbness, status post ACDF C3-7 on 01/29/2024. Plan for posterior intervention today 02/01/24 Posterior C2-T2 decompression and fusion. MRI lumbar spine showed L5-S1 spondylosis with listhesis. MRI cervical spine:Images reviewed demonstrate multilevel spondylosis with HNP and severe stenosis C3-7 with severe cord signal changes at every level along with foraminal stenosis. There are pincer lesions at C3-7 levels with severe central stenosis noted. Flattened CL due to collapse of disc spaces as well as spondylosis. Severe facet arthrosis noted. No fractures. No lesions C0-1 and C1-2 stable. New onset A-fib with RVR: Noted to have atrial flutter with RVR on 02/03/2024new onset. Cardiology consulted as recommended Cardizem drip, recommended to start heparin drip once cleared by surgery, start metoprolol, echocardiogram. Monitor with telemetry. Hypertension history History of pancreatic cancer GERD GI prophylaxis DVT prophylaxis Full code Plan: Patient continues with hard collar with orthopedics following scheduled to undergo posterior decompression today 02/01/2024. Will await orthopedic report Follow-up on repeat labs and replace electrolytes per protocol Home medications reviewed and resumed as appropriate Continue to encourage incentive spirometer at least 10 times every hour while awake Continue bowel regimen scheduled and as needed We will continue to follow with orthopedics during hospitalization. Thank you kindly for this consultation. DVT prophylaxis: PHYSICAL EXAMINATION: GENERAL: The patient is A&O x3, NAD HEENT: EOMI, Sclerae anicteric, Moist Mucous membranes Neck: C-collar in place. PULMONARY: Equal breath souds B/L, No wheezing, No crackles. CARDIOVASCULAR: S1, S2 present. No murmurs, rubs, or gallops. ABDOMEN: Soft, nontender, nondistended, normoactive bowel sounds. No guarding or rebound tenderness. MUSCULOSKELETAL: No edema, No cyanosis. No clubbing. Normal ROM. Intact peripheral pulses. EXTREMITIES: No cyanosis, clubbing, or pedal edema. NEUROLOGICAL: CN 2-12 grossly intact. No FND Skin: No Rash REVIEW OF SYSTEMS: CONSTITUTIONAL: No fever or chills. CARDIOVASCULAR: No chest pain, palpitations or syncope. PULMONARY: No shortness of breath, no cough, sore throat. GASTROINTESTINAL: No nausea, vomiting, diarrhea, abdominal pain. : No Dysuria, urgency, frequency. Extremities: No edema. Complains of neck pain. NEUROLOGICAL: No headaches, no weakness, or numbness Dictation was produced using [employer] dictation software. please excuse any grammatical, word or spelling errors. Objective - Vital Signs Vital signs: Vital Signs Temp 98.1 F 02/03/24 12:31 Pulse 144 H 02/03/24 15:26 Resp 18 02/03/24 15:26 BP 89/60 02/03/24 16:24 Pulse Ox 100 02/03/24 15:26 FiO2 Intake & Output 02/02/24 02/03/24 02/03/24 18:59 06:59 18:59 Intake Total 240 200 Output Total 1600 790 907 Balance -0791 -352 -299 Intake: IV 240 Lactated Ringers 1,000 ml 240 @ 20 mls/hr IV .Q24H [facility] Rx#:[id number] Oral 200 Output: Drainage 40 120 Neck 40 60 Posterior Neck 60 Urine 1600 750 400 Post Void Residual 387 Other: Voiding Method Indwelling Catheter Urinal # Voids 1 2 2 - Labs CBC & Chem 7: 02/03/24 14:17 02/02/24 04:58 Labs: Abnormal Lab Results - Last 24 Hours (Table) 02/03/24 02/03/24 Range/Units 14:17 14:17 WBC 11.0 H (3.8-10.6) k/uL RBC 3.96 L (4.30-5.90) m/uL Hct 38.9 L (39.0-53.0) % Neutrophils # 9.0 H (1.3-7.7) k/uL APTT 74.4 H (22.0-30.0) sec
[2024-02-03] MEDS: HEPARIN SODIUM 1,000 UN/ML (10ML VL) IV PRN (21:41)
[2024-02-04 04:38] LABS: Basophils % (A) 0 %; Eosinophils # (A) 0.2 k/uL (0-0.7); Eosinophils % (A) 2 %; HCT 40.1 % (39.0-53.0); HGB 13.2 gm/dL (13.0-17.5); Lymphocytes # (A) 1.2 k/uL (1.0-4.8); Lymphocytes % (A) 11 %; MCH 32.6 pg (25.0-35.0); MCV 98.9 fL (80.0-100.0); Mean Platelet Volume 8.2; Monocytes # (A) 0.7 k/uL (0-1.0); Monocytes % (A) 7 %; Neutrophils # (A) 8.5 k/uL (1.3-7.7); Neutrophils % (A) 79 %; Platelet Count 290 k/uL (150-450); RBC 4.06 m/uL (4.30-5.90); RDW 11.6 % (11.5-15.5); WBC 10.9 k/uL (3.8-10.6)
[2024-02-04 04:47] LABS: Prothrombin Time 10.6 sec (10.0-12.5)
[2024-02-04 08:37] LABS: LDL Cholesterol,Calculated 56.2 mg/dL (0.0-131.0); VLDL Calculation 10.78 mg/dL (5.00-40.00)
--- NOTE | 2024-02-04 12:20 | P.PN ---
Subjective Progress Note Date: 02/04/24 Principal diagnosis: Bilateral upper and lower extremity weakness, multilevel cervical spondylosis, cervical stenosis, bilateral upper and lower extremity radiculopathy, cervical myelopathy Patient was evaluated today at bedside. Patient is resting comfortably in bed. Patient is doing very well at this time. Patient was transferred to the cardiac stepdown unit for a flutter with RVR, cardiology is currently following patient. He is urinating with no issues. Denies any headaches, lightheadedness, chest pain or shortness of breath. Objective - Vital Signs Vital signs: Vital Signs Temp 97.9 F 02/04/24 11:28 Pulse 104 H 02/04/24 11:28 Resp 18 02/04/24 11:28 BP 108/68 02/04/24 11:28 Pulse Ox 94 L 02/04/24 11:28 FiO2 Intake & Output 02/03/24 02/04/24 02/04/24 18:59 06:59 18:59 Intake Total 200 282.527 120 Output Total 907 388 Balance -707 -105.473 120 Intake: Intake, IV Titration 282.527 Amount Diltiazem 125 mg In 125 Sodium Chloride 0.9% 100 ml @ 10 MG/HR 10 mls/hr IV .[id number] [facility] Rx#: [id number] Heparin Sod,Pork in 0.45% 157.527 NaCl 25,000 unit In 0.45 % NaCl 1 250ml.bag @ 12 UNITS/KG/HR 8.546 mls/hr IV .Q24H [facility] Rx#: [id number] Oral 200 120 Output: Drainage 120 70 Neck 60 Posterior Neck 60 70 Urine 400 100 Post Void Residual 387 218 Other: Voiding Method Urinal External Catheter # Voids 2 - Exam Gen: AOx3, NAD VSS stable at this time Integument: Anterior and posterior dressings are well-placed, no active drainage visualized Palpation: Tenderness with palpation of the paraspinal cervical region ROM: Chronic right shoulder rotator cuff issues, he is very limited with elevation and abduction. Full range of motion in all major muscle groups of the bilateral lower extremities Sensory Exam: Senory exam to light touch is intact C5-T1 Senosry exam to light touch is intact L2-S1 Motor: 4/5 strength appreciated in the bilateral upper extremities with shoulder elevation, shoulder abduction, elbow flexion, 3/5 strength appreciated bilateral upper extremities with elbow extension, wrist extension, intrinsics, count team member 3+/5 strength appreciated bilateral lower extremities with hip flexion, knee extension, knee flexion, plantarflexion, dorsiflexion, EHL, FHL Reflexes: 3/4 in all UE and LE Positive Melodie's and clonus appreciated bilaterally - Labs CBC & Chem 7: 02/04/24 04:00 02/02/24 04:58 Labs: Abnormal Lab Results - Last 24 Hours (Table) 02/03/24 02/03/24 02/03/24 Range/Units 14:17 14:17 20:33 WBC 11.0 H (3.8-10.6) k/uL RBC 3.96 L (4.30-5.90) m/uL Hct 38.9 L (39.0-53.0) % Neutrophils # 9.0 H (1.3-7.7) k/uL APTT 74.4 H 32.9 H (22.0-30.0) sec 02/04/24 02/04/24 Range/Units 04:00 04:00 WBC 10.9 H (3.8-10.6) k/uL RBC 4.06 L (4.30-5.90) m/uL Hct (39.0-53.0) % Neutrophils # 8.5 H (1.3-7.7) k/uL APTT 35.9 H (22.0-30.0) sec Assessment and Plan Assessment: Cervical myelopathy Postoperative day #6 status post C3-C7 ACDF Postop day #3 status post C2-T2 posterior decompression and fusion Bilateral upper and lower extremity weakness Plan: Pain control, continue current medications along with stool softeners Cardiology recommendations appreciated Internal medicine recommendations appreciated Encourage incentive spirometer Continue use of hard collar, prescription for additional soft pads will be placed prior to discharge Plan for dressing change both anterior and posterior, drain removal on 02/05/2024 Weight-bear as tolerated with walker, patient must have assistance at bedside when ambulating Continue PT/OT Discharge planning: Plan for discharge to subacute rehab in the next 48/72 hours Will continue to follow patient during hospital stay Time with Patient: Less than 30
[2024-02-04] MEDS: METOPROLOL TARTRATE 50 MG TAB PO STA (14:11)
--- NOTE | 2024-02-04 15:46 | P.PN ---
Subjective Progress Note Date: 02/04/24 Interval History: 73-year-old male patient with past medical history significant for hypertension, osteoarthritis, GERD, history of pancreatic cancer status post chemotherapy and Whipple's procedure in 2016, history of heart murmur who was following orthopedic for worsening low back pain and progressive difficulty in ambulation since August. Patient does not remember any inciting event in the epidural, p basilioient reported that he he noted that towards the end of the month he was losing the ability to walk. Patient felt his legs were progressively getting more wobbly, was also feeling more unsteady, reported losing his balance and also was unable to hold onto objects. Patient stated that he has been seen by [facility] and physical therapy without much relief. Patient had MRI of brain and lower back. MRI lower back showed L5-S1 spondylosis with listhesis. Patient reported bilateral lower extremity weakness, numbness, tingling as well as medial thigh numbness and tingling. Patient also reported weakness of upper extremities. Patient also had MRI of the neck done and read alert was sent to orthopedics and patient was advised to come to the ED. 01/27--patient was seen and examined today. No issues overnight. Vital stable. Blood pressure 147/78. Saturating 92% on room air. 01/28--patient was seen and examined today. No issues overnight. Status post ACDF C3-C7 today. 01/29--patient was seen and examined today. Patient sitting up in chair, complaining of neck pain, got worse after patient ambulated. Complaining of bilateral shoulder pain, reported improvement in lower extremity weakness. REYES drain in place. Patient scheduled for stage II C2-T2 decompression and fusion for , 02/01/2024. Incentive spirometry, PT/OT consult. Orthopedic spine following. 01/31/2024 Patient is seen in follow-up today being followed by orthopedics and scheduled to undergo stage II of the decompression and fusion on 02/01/2024. Patient reports his initial surgery was earlier this week anteriorly. Patient continues with neck collar and currently up in the chair. Patient to continue on bowel regimen and recommend scheduled as well as as needed as patient reports he is passing gas but did not have much of a bowel movement although he is not quite reporting constipation. Continue to encourage incentive spirometer and increase activity as tolerated. PT/OT therapy once cleared by orthopedics 02/01/2024 Patient was taken to the OR by orthopedics and is scheduled to undergo post lateral fusion of C2-T2 with laminectomy and foraminotomy secondary to severe cervical stenosis. Will await official surgical report 02/02/2024 Patient is seen and evaluated in follow-up postop day 1 underwent posterior decompression. Patient is afebrile with no reports of chest pain or palpitations. Patient denies shortness of breath although does have a cough and irritation of the throat and esophagus which could be secondary to surgery yesterday. Patient reports is having some congestion with phlegm that is more productive in the a.m. and will obtain a chest x-ray. Patient is afebrile and will follow-up on repeat labs. Patient has been instructed to continue with incentive spirometer frequently including 10 times every hour while awake. 02/03/2024--patient was seen and examined today. Complains of neck pain worse with exertion. Patient underwent into A-fib with RVR for which cardiology consulted. Patient was noted to have atrial flutter with heart rate going into 150 bpm. Patient was asymptomatic. Blood pressure stable. EKG negative for any ischemic changes. Cardiology recommended to start Cardizem drip, heparin drip once cleared by surgery, echocardiogram, started metoprolol. 02/04/2024--- patient was seen and examined today. Pain is controlled. Patient was still in A-fib with RVR, requiring Cardizem drip earlier today. Cardiology following, increased metoprolol to 100 mg twice daily, remains on heparin drip. Orthopedic following. Assessment and plan: Cervical stenosis with myelopathy and radiculopathy with bilateral upper and lower extremity weakness with numbness, status post ACDF C3-7 on 01/29/2024. Plan for posterior intervention today 02/01/24 Posterior C2-T2 decompression and fusion. MRI lumbar spine showed L5-S1 spondylosis with listhesis. MRI cervical spine:Images reviewed demonstrate multilevel spondylosis with HNP and severe stenosis C3-7 with severe cord signal changes at every level along with foraminal stenosis. There are pincer lesions at C3-7 levels with severe central stenosis noted. Flattened CL due to collapse of disc spaces as well as spondylosis. Severe facet arthrosis noted. No fractures. No lesions C0-1 and C1-2 stable. New onset A-fib with RVR: Noted to have atrial flutter with RVR on 02/03/2024new onset. Cardiology consulted --- recommended Cardizem drip, recommended to start heparin drip once cleared by surgery, start metoprolol, echocardiogram. Monitor with telemetry. Hypertension history History of pancreatic cancer GERD GI prophylaxis DVT prophylaxis Full code Plan: Patient continues with hard collar with orthopedics following scheduled to undergo posterior decompression today 02/01/2024. Follow-up on repeat labs and replace electrolytes per protocol Home medications reviewed and resumed as appropriate Continue to encourage incentive spirometer at least 10 times every hour while awake Continue bowel regimen scheduled and as needed We will continue to follow with orthopedics during hospitalization. Thank you kindly for this consultation. DVT prophylaxis: AC PHYSICAL EXAMINATION: GENERAL: The patient is A&O x3, NAD HEENT: EOMI, Sclerae anicteric, Moist Mucous membranes Neck: C-collar in place. PULMONARY: Equal breath souds B/L, No wheezing, No crackles. CARDIOVASCULAR: S1, S2 present. No murmurs, rubs, or gallops. ABDOMEN: Soft, nontender, nondistended, normoactive bowel sounds. No guarding or rebound tenderness. MUSCULOSKELETAL: No edema, No cyanosis. No clubbing. Normal ROM. Intact peripheral pulses. EXTREMITIES: No cyanosis, clubbing, or pedal edema. NEUROLOGICAL: CN 2-12 grossly intact. No FND Skin: No Rash REVIEW OF SYSTEMS: CONSTITUTIONAL: No fever or chills. CARDIOVASCULAR: No chest pain, palpitations or syncope. PULMONARY: No shortness of breath, no cough, sore throat. GASTROINTESTINAL: No nausea, vomiting, diarrhea, abdominal pain. : No Dysuria, urgency, frequency. Extremities: No edema. Complains of neck pain. NEUROLOGICAL: No headaches, no weakness, or numbness Dictation was produced using [employer] dictation software. please excuse any grammatical, word or spelling errors. Objective - Vital Signs Vital signs: Vital Signs Temp 97.9 F 02/04/24 11:28 Pulse 91 02/04/24 15:28 Resp 17 02/04/24 15:28 BP 103/61 02/04/24 15:28 Pulse Ox 95 02/04/24 15:28 FiO2 Intake & Output 02/03/24 02/04/24 02/04/24 18:59 06:59 18:59 Intake Total 200 282.527 324.973 Output Total 907 388 Balance -707 -105.473 324.973 Intake: Intake, IV Titration 282.527 204.973 Amount Diltiazem 125 mg In 125 112.5 Sodium Chloride 0.9% 100 ml @ 10 MG/HR 10 mls/hr IV .[id number] [facility] Rx#: [id number] Heparin Sod,Pork in 0.45% 157.527 92.473 NaCl 25,000 unit In 0.45 % NaCl 1 250ml.bag @ 12 UNITS/KG/HR 8.546 mls/hr IV .Q24H [facility] Rx#: [id number] Oral 200 120 Output: Drainage 120 70 Neck 60 Posterior Neck 60 70 Urine 400 100 Post Void Residual 387 218 Other: Voiding Method Urinal External Catheter # Voids 2 - Labs CBC & Chem 7: 02/04/24 04:00 02/02/24 04:58 Labs: Abnormal Lab Results - Last 24 Hours (Table) 02/03/24 02/04/24 02/04/24 Range/Units 20:33 04:00 04:00 WBC 10.9 H (3.8-10.6) k/uL RBC 4.06 L (4.30-5.90) m/uL Neutrophils # 8.5 H (1.3-7.7) k/uL APTT 32.9 H 35.9 H (22.0-30.0) sec 02/04/24 Range/Units 12:37 WBC (3.8-10.6) k/uL RBC (4.30-5.90) m/uL Neutrophils # (1.3-7.7) k/uL APTT 33.0 H (22.0-30.0) sec
[2024-02-04] MEDS: DILTIAZEM 125 MG in SODIUM CHLORIDE 0.9% 100 ML IV SCH (17:46)
--- NOTE | 2024-02-04 18:38 | P.PN ---
Subjective Progress Note Date: 02/04/24 HISTORY OF PRESENTING ILLNESS Patient is a 73-year-old male with past medical history of hyperte nsion, osteoarthritis, GERD, history of pancreatic cancer s/p chemotherapy and Whipple's procedure in 2016. Patient underwent cervical spine surgery on 02/02/2024. On 02/03/2024 patient was noticed to be in atrial fibrillation with RVR for which cardiology was consulted. On evaluating patient at bedside there is noted that patient is in a flutter with heart rate of 150 bpm. Patient has a cervical s pine collar in place. He denies any symptoms of chest pain chest pressure. His ECG does not show any significant ischemic. Patient does not appear volume overloaded. He denies any symptoms of lig htheadedness or dizziness. February 04, 2024 Patient's heart rate was better controlled this morning being maintained on Cardizem drip. I will discontinue Cardizem drip and will increase his metop rolol to 100 mg twice daily PHYSICAL EXAMINATION Vital signs reviewed. Head: Normocephalic. Eyes: Sclerae nonicteric. Neck: Brisk carotid upstroke, no jugular venous distention. Lungs: Clear to auscultation. Heart: Irregularly irregular, mild systolic murmur audible in aortic area Abdomen: Soft nontender, positive bowel sounds. Extremities: No edema, intact distal pulses. Neuro: Alert, oritented, no focal deficits. Detailed neuro exam was not performed. ASSESSMENT New onset atrial flutter with RVR Cervical stenosis with myelopathy and radiculopathy status post surgery 02/02/2024 Hypertension History of pancreatic cancer status post Whipple's procedure and chemotherapy GERD Relavant labs HbA1c 5, NT proBNP 395, TSH 1.2, LDL 56, hemoglobin 13.2 PLAN Obtain an echocardiogram Start IV heparin drip. If no concerns of bleeding in next 24 hours, transition to p.o. anticoagulation. Increase metoprolol to 50 mg twice daily. Use Cardizem as needed Hold his antihypertensives amlodipine and losartan because of low blood pressure since we have added AV beverly blocking agents. Objective - Vital Signs Vital signs: Vital Signs Temp 97.9 F 02/04/24 11:28 Pulse 157 H 02/04/24 17:45 Resp 17 02/04/24 15:28 BP 100/65 02/04/24 17:45 Pulse Ox 95 02/04/24 15:28 FiO2 Intake & Output 02/03/24 02/04/24 02/04/24 18:59 06:59 18:59 Intake Total 200 282.527 444.973 Output Total 907 388 250 Balance -707 -105.473 194.973 Intake: Intake, IV Titration 282.527 204.973 Amount Diltiazem 125 mg In 125 112.5 Sodium Chloride 0.9% 100 ml @ 10 MG/HR 10 mls/hr IV .[id number] [facility] Rx#: [id number] Heparin Sod,Pork in 0.45% 157.527 92.473 NaCl 25,000 unit In 0.45 % NaCl 1 250ml.bag @ 12 UNITS/KG/HR 8.546 mls/hr IV .Q24H [facility] Rx#: [id number] Oral 200 240 Output: Drainage 120 70 Neck 60 Posterior Neck 60 70 Urine 400 100 250 Post Void Residual 387 218 Other: Voiding Method Urinal External Catheter # Voids 2 # Bowel Movements 1 - Labs CBC & Chem 7: 02/04/24 04:00 02/02/24 04:58 Labs: Abnormal Lab Results - Last 24 Hours (Table) 02/03/24 02/04/24 02/04/24 Range/Units 20:33 04:00 04:00 WBC 10.9 H (3.8-10.6) k/uL RBC 4.06 L (4.30-5.90) m/uL Neutrophils # 8.5 H (1.3-7.7) k/uL APTT 32.9 H 35.9 H (22.0-30.0) sec 02/04/24 Range/Units 12:37 WBC (3.8-10.6) k/uL RBC (4.30-5.90) m/uL Neutrophils # (1.3-7.7) k/uL APTT 33.0 H (22.0-30.0) sec
[2024-02-04] MEDS: METOPROLOL TARTRATE 50 MG TAB PO SCH (21:32)
--- NOTE | 2024-02-05 11:34 | CA ---
Transthoracic Echo Report Name: Bruce Banerjee Age: 73 Gender: M : 1950 Exam Date: 02/05/2024 08:04 Exam Location: [facility] Ht (in): 70 Wt (lb): 157 Ordering Physician: Vamsi Hernández MD ([id number]) Attending/Referring Phys: Pipe Foreman Lisa Pérez RDCS Procedure CPT: Indications: afib Cardiac Hx: limited study Technical Quality: Technically difficult study Contrast 1: Definity Total Dose (mL): 2 Contrast 2: Total Dose (mL): MEASUREMENTS (Male / Female) Normal Values 2D ECHO LV Diastolic Diameter PLAX 4.8 cm 4.2 - 5.9 / 3.9 - 5.3 cm LV Systolic Diameter PLAX 3.6 cm IVS Diastolic Thickness 1.3 cm 0.6 - 1.0 / 0.6 - 0.9 cm LVPW Diastolic Thickness 1.3 cm 0.6 - 1.0 / 0.6 - 0.9 cm LV Relative Wall Thickness 0.5 RV Internal Dim ED PLAX 3.0 cm LA Systolic Diameter LX 3.4 cm 3.0 - 4.0 / 2.7 - 3.8 cm DOPPLER AV Peak Velocity 107.7 cm/s AV Peak Gradient 4.6 mmHg MV Area PHT 3.0 cm??? Mitral E Point Velocity 59.8 cm/s Mitral A Point Velocity 54.2 cm/s Mitral E to A Ratio 1.1 MV Deceleration Time 254.8 ms TR Peak Velocity 222.4 cm/s TR Peak Gradient 19.8 mmHg Right Ventricular Systolic Press 24.6 mmHg FINDINGS Left Ventricle Left ventricular ejection fraction is estimated at 35-40 %. Left ventricular cavity size normal. Mild concentric left ventricular hypertrophy. Moderately reduced global left ventricular systolic function. Right Ventricle Normal right ventricular size and function. Right ventricular systolic pressure within normal limits. Right Atrium Right atrium not well visualized. Left Atrium Left atrium not well visualized. Mitral Valve Structurally normal mitral valve. No mitral stenosis, regurgitation or prolapse. Aortic Valve Thickened aortic valve without stenosis. Tricuspid Valve Structurally normal tricuspid valve. Mild tricuspid regurgitation. Pulmonic Valve Pulmonic valve not well visualized. Pericardium No pericardial effusion. Aorta Aortic root and proximal ascending aorta not well visualized. CONCLUSIONS Moderate to severe LV dysfunction with an ejection fraction of 35% Mild tricuspid regurgitation Previewed by: Dr. Avery Spaulding MD (Electronically Signed) Final Date: 05 February 2024 11:33
--- NOTE | 2024-02-05 11:58 | P.PN ---
Subjective Progress Note Date: 02/05/24 HISTORY OF PRESENTING ILLNESS Patient is a 73-year-old male with past medical history of hyperte nsion, osteoarthritis, GERD, history of pancreatic cancer s/p chemotherapy and Whipple's procedure in 2016. Patient underwent cervical spine surgery on 02/02/2024. On 02/03/2024 patient was noticed to be in atrial fibrillation with RVR for which cardiology was consulted. On evaluating patient at bedside there is noted that patient is in a flutter with heart rate of 150 bpm. Patient has a cervical s pine collar in place. He denies any symptoms of chest pain chest pressure. His ECG does not show any significant ischemic. Patient does not appear volume overloaded. He denies any symptoms of ligh theadedness or dizziness. Relavant labs HbA1c 5, NT proBNP 395, TSH 1.2, LDL 56, hemoglobin 13.2 February 04, 2024 Patient's heart rate was better controlled this morning being maintained on Cardizem drip. I will discontinue Cardizem drip and will increase his metoprolol to 100 mg twice daily 02/04 Patient remains in atrial flutter running in the 80s. Echocardiogram is pending. Patient remains on Cardizem gtt at 10 mg/hr. Patient remains on Heparin gtt as well. PHYSICAL EXAMINATION Vital signs reviewed. Head: Normocephalic. Eyes: Sclerae nonicteric. Neck: Brisk carotid upstroke, no jugular venous distention. Hard c-collar in place. Lungs: Clear to auscultation. Heart: Irregularly irregular, mild systolic murmur audible in aortic area Abdomen: Soft nontender, positive bowel sounds. Extremities: No edema, intact distal pulses. Neuro: Alert, oritented, no focal deficits. Detailed neuro exam was not performed. ASSESSMENT New onset atrial flutter with RVR, currently rate controlled Cervical stenosis with myelopathy and radiculopathy status post surgery 02/02/2024 Hypertension History of pancreatic cancer status post Whipple's procedure and chemotherapy GERD PLAN Obtain an echocardiogram Start IV heparin drip. If no concerns of bleeding in next 24 hours, transition to p.o. anticoagulation if ok with orthopedics. Continue the following cardiac medications: Lopressor 100 mg bid Hold his antihypertensives amlodipine and losartan because of low blood pressure since we have added AV beverly blocking agents. Cardizem gtt decreased to 5 mg/hr Further recommendations as patient progresses. Nurse practitioner note has been reviewed, I agree with documented findings and plan of care. Patient was seen and examined. Objective - Vital Signs Vital signs: Vital Signs Temp 98.2 F 02/04/24 23:35 Pulse 78 02/05/24 04:45 Resp 18 02/05/24 04:45 BP 104/77 02/05/24 04:45 Pulse Ox 91 L 02/05/24 04:45 FiO2 Intake & Output 02/04/24 02/05/24 02/05/24 18:59 06:59 18:59 Intake Total 444.973 125 Output Total 250 540 Balance 194.973 -415 Intake: Intake, IV Titration 204.973 125 Amount Diltiazem 125 mg In 112.5 Sodium Chloride 0.9% 100 ml @ 10 MG/HR 10 mls/hr IV .[id number] [facility] Rx#: [id number] Diltiazem 125 mg In 125 Sodium Chloride 0.9% 100 ml @ 10 MG/HR 10 mls/hr IV .[id number] [facility] Rx#: [id number] Heparin Sod,Pork in 0.45% 92.473 NaCl 25,000 unit In 0.45 % NaCl 1 250ml.bag @ 12 UNITS/KG/HR 8.546 mls/hr IV .Q24H [facility] Rx#: [id number] Oral 240 Output: Drainage 40 Posterior Neck 40 Urine 250 500 Other: Voiding Method External Catheter External Catheter # Bowel Movements 1 - Labs CBC & Chem 7: 02/04/24 04:00 02/02/24 04:58 Labs: Abnormal Lab Results - Last 24 Hours (Table) 02/04/24 02/04/24 02/05/24 Range/Units 12:37 19:39 05:56 APTT 33.0 H 56.8 H 52.6 H (22.0-30.0) sec
--- NOTE | 2024-02-05 12:47 | P.PN ---
Progress Note - Text Progress Note Date: 02/05/24 Diagnosis: Cervical myelopathy; Bilateral upper and lower extremity weakness Subjective: Patient was seen at bedside this afternoon lying in semirecumbent position with hard c-collar in place and anterior cervical and posterior cervical dressing and drain in place. Cardiology and medicine have been following patient. Echocardiogram performed this morning. Patient looking forward to going to rehab upon discharge from hospital. Patient says he has tried to perform gentle range of motion exercises of lower extremities and upper extremities while resting in bed. He says he does have a difficult time sitting up for more than several minutes at the edge of the bed. Patient denies fever, nausea, vomiting, change in vision, loss of bowel/bladder control. Objective: Posterior cervical dressing taken down and drain removed. New dressing placed over incision and dressing placed over drain incision. Incisions appear to be clean, dry, intact. Negative for any drainage. [place] removed from scalp. Fair amount of tenderness to palpation over posterior cervical spine near incision. Nontender to palpation throughout rest of exam. Patient does have limited range of motion in the right shoulder secondary to chronic rotator cuff issues. Full range of motion throughout bilateral elbows and wrist in flexion/tension. Full range of motion throughout bilateral lower extremities. 4-/5 in all major motor groups in bilateral lower extremities. 3+/5 in all major motor groups in bilateral upper extremities. Sensation is equal, symmetric, bilateral intact. Radial pulse intact bilaterally. Positive Melodie. Negative Homans bilaterally. Assessment: Cervical myelopathy; Bilateral upper and lower extremity weakness Postoperative day #7 status post C3-C7 ACDF Postop day #4 status post C2-T2 posterior decompression and fusion Plan: 1. Cervical myelopathy; Bilateral upper and lower extremity weakness -C3-C7 ACDF and posterior cervical C2-T2 decompression and fusion performed within the past week. Patient stable bedside with hard c-collar in place. Posterior cervical dressing and drain removed and changed at bedside. [place] removed from scalp. Weightbearing as tolerated with walker and assistance as needed. Hard c-collar on at all times. Encourage incentive spirometer use. Pain medication as needed. Cardiology and medicine following. Plan for discharge to rehab tomorrow, 02/06/2024. 2. Appreciate medical and cardiology management 3. Pain management - norco; OxyIR; tylenol; flexeril 4. DVT prophylaxis - heparin 5. GI prophylaxis - protonix; dulcolax; tums 6. PT/OT -weightbearing as tolerated with walker and assistance and hard c-c ollar on at all times 7. Encourage incentive spirometer use 8. Discharge planning - Plan for discharge to rehab tomorrow, 02/06/2024.
--- NOTE | 2024-02-05 23:39 | P.PN ---
Subjective Progress Note Date: 02/05/24 73-year-old male patient with past medical history significant for hypertension, osteoarthritis, GERD, history of pancreatic cancer status post chemotherapy and Whipple's procedure in 2016, history of heart murmur who was following orthopedic for worsening low back pain and progressive difficulty in ambulation since August. Patient does not remember any inciting event in the epidural, patient reported that he he noted that towards the end of the month he was losing the ability to walk. Patient felt his legs were progressively getting more wobbly, was also feeling more unsteady, reported losing his balance and also was unable to hold onto objects. Patient stated that he has been seen by [facility] and physical therapy without much relief. Patient had MRI of brain and lower back. MRI lower back showed L5-S1 spondylosis with listhesis. Patient reported bilateral lower extremity weakness, numbness, tingling as well as medial thigh numbness and tingling. Patient also reported weakness of upper e xtremities. Patient also had MRI of the neck done and read alert was sent to orthopedics and patient was advised to come to the ED. 01/27--patient was seen and examined today. No issues overnight. Vital stable. Blood pressure 147/78. Saturating 92% on room air. 01/28--patient was seen and examined today. No issues overnight. Status post ACDF C3-C7 today. 01/29--patient was seen and examined today. Patient sitting up in chair, complaining of neck pain, got worse after patient ambulated. Complaining of bilateral shoulder pain, reported improvement in lower extremity weakness. REYES drain in place. Patient scheduled for stage II C2-T2 decompression and fusion for , 02/01/2024. Incentive spirometry, PT/OT consult. Orthopedic spine following. 01/31/2024 Patient is seen in follow-up today being followed by orthopedics and scheduled to undergo stage II of the decompression and fusion on 02/01/2024. Patient reports his initial surgery was earlier this week anteriorly. Patient continues with neck collar and currently up in the chair. Patient to continue on bowel regimen and recommend scheduled as well as as needed as patient reports he is passing gas but did not have much of a bowel movement although he is not quite reporting constipation. Continue to encourage incentive spirometer and increase activity as tolerated. PT/OT therapy once cleared by orthopedics 02/01/2024 Patient was taken to the OR by orthopedics and is scheduled to undergo post lateral fusion of C2-T2 with laminectomy and foraminotomy secondary to severe cervical stenosis. Will await official surgical report 02/02/2024 Patient is seen and evaluated in follow-up postop day 1 underwent posterior de compression. Patient is afebrile with no reports of chest pain or palpitations. Patient denies shortness of breath although does have a cough and irritation of the throat and esophagus which could be secondary to surgery yesterday. Patient reports is having some congestion with phlegm that is more productive in the a.m. and will obtain a chest x-ray. Patient is afebrile and will follow-up on r epeat labs. Patient has been instructed to continue with incentive spirometer frequently including 10 times every hour while awake. 02/03/2024--patient was seen and examined today. Complains of neck pain worse with exertion. Patient underwent into A-fib with RVR for which cardiology consulted. Patient was noted to have atrial flutter with heart rate going into 150 bpm. Patient was asymptomatic. Blood pressure stable. EKG negative for any ischemic changes. Cardiology recommended to start Cardizem drip, heparin drip once cleared by surgery, echocardiogram, started metoprolol. 02/04/2024--- patient was seen and examined today. Pain is controlled. Patient was still in A-fib with RVR, requiring Cardizem drip earlier today. Cardiology following, increased metoprolol to 100 mg twice daily, remains on heparin drip. Orthopedic following. 02/05/24 Patient is seen this morning and continues on cardizem drip and being titrated down. Patient also continues on IV heparin and will need to transition to oral anticoagulant when cleared by orthopedics. Cardio following and adjusting medi cations REVIEW OF SYSTEMS: CONSTITUTIONAL: No fever or chills. Complains of neck pain. CARDIOVASCULAR: No chest pain, no reports of palpitations or syncope. PULMONARY: No shortness of breath, reports somewhat productive cough GASTROINTESTINAL: No nausea, vomiting, diarrhea, abdominal pain. : No Dysuria, urgency, frequency. Extremities: No edema. NEUROLOGICAL: No headaches, no weakness, or numbness PHYSICAL EXAMINATION: GENERAL: The patient is A&O x3, NAD elderly appearing HEENT: EOMI, Sclerae anicteric, Moist Mucous membranes Neck: Cervical collar in place, REYES drain in place, decreased range of motion. PULMONARY: Diminished breath sounds bilaterally otherwise clear to auscultation other than noted bronchial congestion, no accessory muscle use, no wheezing or crackles noted CARDIOVASCULAR: S1, S2 muffled, irregular ABDOMEN: Soft, thin, nontender, nondistended, normoactive bowel sounds. No guarding or rebound tenderness. MUSCULOSKELETAL: No edema, No cyanosis. No clubbing. Normal ROM. Intact peripheral pulses. EXTREMITIES: No cyanosis, clubbing, or pedal edema. NEUROLOGICAL: CN 2-12 grossly intact. No FND Skin: No Rash Assessment: Cervical stenosis with myelopathy and radiculopathy with bilateral upper and lower extremity weakness with numbness, status post ACDF C3-7 on 01/29/2024. and status post posterior intervention 02/01/24, Posterior C2-T2 decompression and fusion. New onset A-fib with RVR: Noted to have atrial flutter with RVR on 02/03/2024new onset. currently on cardizem and heparin MRI lumbar spine showed L5-S1 spondylosis with listhesis. MRI cervical spine:Images reviewed demonstrate multilevel spondylosis with HNP and severe stenosis C3-7 with severe cord signal changes at every level along with foraminal stenosis. There are pincer lesions at C3-7 levels with severe central stenosis noted. Flattened CL due to collapse of disc spaces as well as spondylosis. Severe facet arthrosis noted. No fractures. No lesions C0-1 and C1-2 stable. Hypertension history History of pancreatic cancer GERD GI prophylaxis DVT prophylaxis Full code Plan: Patient continues with hard collar with orthopedics following and is status post posterior decompression 02/01/2024. Follow-up on repeat labs and replace electrolytes per protocol Home medications reviewed and resumed as appropriate Encourage incentive spirometer use at least 10 times every hour while awake. New onset afib and currently on cardizem and IV heparin with cardio following PT/OT therapy evaluated and recommend rehab, patient is agreeable. We will continue to follow with orthopedics during hospitalization. Thank you kindly for this consultation. The impression and plan of care has been dictated by Meera Fitzgerald, Nurse Practitioner as directed. Dr. Herve MD I have performed a history and examination and MDM of this patient, discussed the same with the dictator, and agree with the dictator's assessment and plan as written ,documented as a scribe. Based on total visit time, I have performed more than 50% of the visit. Objective - Vital Signs Vital signs: Vital Signs Temp 98.2 F 02/05/24 08:55 Pulse 81 02/05/24 08:55 Resp 17 02/05/24 08:55 BP 96/67 02/05/24 08:55 Pulse Ox 95 02/05/24 08:55 FiO2 Intake & Output 02/04/24 02/05/24 02/05/24 18:59 06:59 18:59 Intake Total 444.973 125 Output Total 250 540 Balance 194.973 -415 Intake: Intake, IV Titration 204.973 125 Amount Diltiazem 125 mg In 112.5 Sodium Chloride 0.9% 100 ml @ 10 MG/HR 10 mls/hr IV .[id number] [facility] Rx#: [id number] Diltiazem 125 mg In 125 Sodium Chloride 0.9% 100 ml @ 10 MG/HR 10 mls/hr IV .[id number] [facility] Rx#: [id number] Heparin Sod,Pork in 0.45% 92.473 NaCl 25,000 unit In 0.45 % NaCl 1 250ml.bag @ 12 UNITS/KG/HR 8.546 mls/hr IV .Q24H [facility] Rx#: [id number] Oral 240 Output: Drainage 40 Posterior Neck 40 Urine 250 500 Other: Voiding Method External Catheter External Catheter External Catheter # Bowel Movements 1 - Labs CBC & Chem 7: 02/04/24 04:00 02/02/24 04:58 Labs: Abnormal Lab Results - Last 24 Hours (Table) 02/04/24 02/04/24 02/05/24 Range/Units 12:37 19:39 05:56 APTT 33.0 H 56.8 H 52.6 H (22.0-30.0) sec
[2024-02-06] MEDS: APIXABAN 5 MG TAB PO SCH (09:38)
--- NOTE | 2024-02-06 10:45 | P.PN ---
Subjective Progress Note Date: 02/06/24 Principal diagnosis: Bilateral upper and lower extremity weakness, multilevel cervical spondylosis, cervical stenosis, bilateral upper and lower extremity radiculopathy, cervical myelopathy Patient was evaluated today at bedside. Patient is resting comfortably in bed. Patient is doing very well at this time. He is urinating with no issues. Patient has had bowel movements last 2 days. Denies any headaches, lightheadedness, chest pain or shortness of breath. Objective - Vital Signs Vital signs: Vital Signs Temp 98.5 F 02/06/24 08:00 Pulse 86 02/06/24 08:00 Resp 18 02/06/24 08:00 BP 112/64 02/06/24 08:00 Pulse Ox 94 L 02/06/24 08:00 FiO2 Intake & Output 02/05/24 02/06/24 02/06/24 18:59 06:59 18:59 Intake Total 543.667 28.75 393.938 Output Total 300 500 Balance 243.667 -471.25 393.938 Weight 62.5 kg Intake: Intake, IV Titration 303.667 28.75 273.938 Amount Diltiazem 125 mg In 53.667 28.75 59.583 Sodium Chloride 0.9% 100 ml @ 10 MG/HR 10 mls/hr IV .[id number] [facility] Rx#: [id number] Heparin Sod,Pork in 0.45% 250 214.355 NaCl 25,000 unit In 0.45 % NaCl 1 250ml.bag @ 12 UNITS/KG/HR 8.546 mls/hr IV .Q24H [facility] Rx#: [id number] Oral 240 120 Output: Urine 300 500 Other: Voiding Method External Catheter External Catheter External Catheter # Bowel Movements 1 1 - Exam Gen: AOx3, NAD VSS stable at this time Integument: Anterior and posterior dressings are intact, no active drainage Palpation: Tenderness with palpation of the paraspinal cervical region ROM: Chronic right shoulder rotator cuff issues, he is very limited with elevation and abduction. Full range of motion in all major muscle groups of the bilateral lower extremities Sensory Exam: Senory exam to light touch is intact C5-T1 Senosry exam to light touch is intact L2-S1 Motor: 4/5 strength appreciated in the bilateral upper extremities with shoulder elevation, shoulder abduction, elbow flexion, 3/5 strength appreciated bilateral upper extremities with elbow extension, wrist extension, intrinsics, conference concierge 3+/5 strength appreciated bilateral lower extremities with hip flexion, knee extension, knee flexion, plantarflexion, dorsiflexion, EHL, FHL Reflexes: 3/4 in all UE and LE Positive Melodie's and clonus appreciated bilaterally - Labs CBC & Chem 7: 02/04/24 04:00 02/02/24 04:58 Labs: Abnormal Lab Results - Last 24 Hours (Table) 02/06/24 Range/Units 05:53 APTT 50.5 H (22.0-30.0) sec Assessment and Plan Assessment: Cervical myelopathy Postoperative day #8 status post C3-C7 ACDF Postop day #5 status post C2-T2 posterior decompression and fusion Bilateral upper and lower extremity weakness Plan: Pain control, continue current medications along with stool softeners Cardiology recommendations appreciated Internal medicine recommendations appreciated Encourage incentive spirometer Continue use of hard collar, prescription for additional soft pads will be placed prior to discharge Monitor surgical dressing Weight-bear as tolerated with walker, patient must have assistance at bedside when ambulating Continue PT/OT Discharge planning: Waiting on authorization for rehab, orthopedically patient stable for discharge Time with Patient: Less than 30
--- NOTE | 2024-02-06 11:22 | P.DS ---
Providers Date of admission: 01/26/24 16:57 Expected date of discharge: 02/06/24 Attending physician: Og Piedra, Consults: 01/26/24 16:53 Consult Physician Routine Consulting Provider: Rose Bennett Consult Reason/Comments: Medical clearance pre-op Do you want consulting provider notified?: Already Contacted 02/03/24 09:53 Consult Physician Urgent Consulting Provider: Vamsi Hernández Consult Reason/Comments: atrial flutter with variable AV block. HR 145. Do you want consulting provider notified?: Already Contacted Primary care physician: Kennedy Luciano harper [facility] Course: Date of admission: 01/26/2024 Date of discharge: 02/06/2024 Admission diagnosis: Cervical myelopathy, bilateral upper and lower extremity weakness, difficulty with ambulation Discharge diagnosis: Same, status post C3-C7 ACDF, C2-T2 posterior decompression and fusion Attending physician: Dr. Piedra Surgical procedures: Stage I ACDF C3-C7, stage II C2-T2 posterior decompression and fusion Brief history: Patient is a 73-year-old male with a history of progressive difficulty with ambulation, bilateral upper and lower extremity weakness would been following in the outpatient setting. Conservative measures were not working, symptoms continue to worsen. Patient underwent a more urgent cervical MRI which demonstrated severe myelopathic changes throughout the cervical spine and other degenerative processes. Patient was admitted to [facility] on 01/26/2024 with plan for surgical intervention. Hospital course: Details of patient's surgery can be found in operative report. Patient tolerated the procedure well and was subsequently transported to orthopedic floor. Patient's orthopeidc and medical care was provided daily. Patient had daily laboratory tests performed for evaluation of overall blood counts. Patient had daily physical therapy to include strengthening range of motion as well as education with walker ambulation. Patient was treated with heparin/Eliquis for their postoperative DVT prophylaxis during their inpatient stay. During the postoperative phase patient did develop an abnormal heart rhythm, cardiology did evaluate the patient in follow-up. Patient was placed on oral anticoagulants. Patient reported satisfactory pain control with oral pain medications by postoperative day 2. Patient showed satisfactory progress with physical therapy. Patient moved steadily through the program and had no difficulty meeting the goals by postoperative day 8. Given patient's otherwise satisfactory course and having met physical therapy goals, plan is to discharge patient to subacute rehab on postoperative day 8. Discharge condition/disposition: Patient will be discharged subacute rehab in stable condition. Discharge medications: Instructions are given on resumption of patient's normal daily medications per primary care recommendation, in addition patient will be prescribed Oxy IR 5 mg, Adrian 5 mg / 325 mg, senna S, MiraLAX 17 g, Duricef 500 mg, Eliquis 5 mg. Spine Discharge and Recovery Instructions Medications: See medication list All medication refills should be obtained through your primary care doctor or your clinic spine surgeon. Please discuss prescription refills at your follow up appointment. Do not call the hospital for medication refills. Dressing: Leave your dressing in place for a total of 5 days post operatively. Then you may remove your dressing and leave open to air. Keep the area clean and if not able to keep area clean, then cover with sterile gauze and tape. Showering: You may shower 3 days after your procedure allowing soap and water to run over incision. Do not scrub. Do not soak. Blot dry. Follow up: Please confirm a follow up appointment with your surgeon 3 weeks post operatively. Please make an appointment to follow up with your PCP in 1-2 weeks after surgery for evaluation '3 phase, 3-week plan' POST OP WEEKS 1-3 1. Lifting/carrying/pushing/pulling limited to less than 5 pounds. 2. Do not sit for longer than 15 minutes at one time. Get up and walk around. Prolonged sitting is NOT advised. If you lay down, see if you can tolerate laying down on you front (belly side) 3. Walk for periods of 15 minutes = 1 mile but no longer; do it multiple times times each day. 4. Ice your low back after activity. POST OP WEEKS 3-6 1. Lifting limited to less than 20 pounds. 2. Do not sit for longer than 30 minutes at a time. Frequently change positions. Use a sit-to stand workstation or take frequent breaks from sitting if you have returned to work. 3. Walk for 30 minutes each day. If possible, do these three or more times a day POST OP WEEKS 6+ At your 6-week appointment we will give you a physical therapy referral to focus on a core stabilization and strengthening program. You should also work on leg & buttock strengthening, hamstring & quadriceps stretching, and continue a low impact aerobic activity program such as swimming, walking, or riding a stationary bicycle. During the initial 6 weeks after your surgery, you are at the highest risk of re-injuring your spine. You should generally avoid BLT's (bending, lifting and twisting combination motions) and follow the above guidelines to reduce the chance of reinjury. You can anticipate post op appointments in our office at approximately 3 weeks and 6 weeks after your surgery. INCISION CARE: If your incision is not draining you do NOT need to cover it with a dressing. Keep your incision clean, dry and intact. In most cases, we apply skin glue, amanda or sutures to the incision at the time of surgery. This will be like a crust or have the appearance of a scab and will fall off in time on its own. The stitches or amanda need to be removed at 3 weeks post op appointment. You may begin to shower 3 days after surgery (this allows the glue to morales well). However, please avoid scrubbing the incision site or peeling off any of the skin glue. This will ensure optimal healing of your incision. Also, during this time avoid soaking the incision area in water - this includes swimming pools, hot tubs or baths. No ointments, lotions or oils on the incision until your surgeon allows. Leave amanda, sutures or glue in place. Neurological dysfunction that comes on suddenly can also be a sign of a stroke. Below some common symptoms of a stroke are listed: B - balance difficulty such as sudden onset walking or leaning to one side - NEW E - eye problem such as sudden double vision or trouble seeing on one side - NEW F - Facial weakness or numbness on one side - NEW A - Arm or leg weakness or numbness on one side - NEW S - Slurred speech or difficulty with word finding - NEW T - Time is BRAIN! Call 911 as soon as you recognize these symptoms Diet: Consume a regular diet rich in vegetables and lean protein such as chicken or fish. You should consume in a ratio of approximately 20% fats|40% carbohydrates|40%protein. Vegetables, sweet potatoes, brown rice or quinoa are examples of good carbohydrates. Chips, white bread, cookies and sweets/sugar are examples of bad carbohydrates. Limit your bad carbs, go wild with good carbs. "Life's Simple 7" Guidelines as per [place] [employer] These will help you reclaim your life after surgery and scientific helper in your recovery, keeping in mind your restrictions. (1) Get Active. Physical activity can help people lose weight, control high blood pressure and cholesterol, feel emotionally better, and sleep better. (2) Control Cholesterol. Avoid a diet high in saturated fat, trans fat, & cholesterol. Limit whole milk & cream, ice cream, butter, egg yolks, processed meats (like sausage and hot dogs), and fatty meats. Choose healthy foods that are low in saturated fat, trans fat and cholesterol which include: Fruits and vegetables, fiber rich grain products (like whole grain pasta and brown rice), lean meat such as chicken, fish, nuts, seeds, and legumes. (3) Eat Better. Eat small portions. Shop at the grocery with a list and do not stray from it. Tips for a healthy diet include: Limit sodium intake to less than 1500mg daily, avoid prepackaged, processed, and fast foods, choose a diet rich in fruits, vegetables, and whole grain, high fiber foods, and limit saturated & cholesterol in your diet. (4) Manage Blood Pressure. If you have high blood pressure, you should have a cuff at home so that you can check your blood pressure regularly. Be sure you have a good cuff. An arm one is generally better than a wrist one. Bring the cuff to a doctor's appointment to validate that the measurements that your cuff are taking are accurate. Take your blood pressure twice daily when you are sitting down and relaxing. Record the numbers in a log and bring this log with you to your doctors' appointments. (5) Lose Weight if your BMI is above 25. A healthy BMI is between 19-25. To calculate Your BMI, you may use a Standard BMI Calculator on the NIH BMI website: <www.nhlbi.nih.gov/guidelines/obesity/BMI/bmicalc.htm>. Weigh oneself daily. If you are overweight, set a goal to lose weight. A pound a week loss if needed is a good target. (6) Reduce Blood Sugar. Limit foods and liquids with "added sugars." (Added sugars include sucrose, fructose, glucose, maltose, dextrose, high fructose corn syrup, corn syrup, concentrated fruit juice and honey). (7) Stop Smoking. If you smoke, quitting smoking is one of the best things that you can do for your health. Smoking increases your risk of heart attack, stroke, and peripheral vascular disease, which is a build-up of plaque in your arteries. Please discard all the cigarettes and lighters in your house. Have a plan for what you will do when you have the urge to smoke. Direct and second- hand smoke shortens your life as well as the lives of your family, friends and others around you. For your health and the health of those around you, please consider quitting! Proper Bending Body Mechanics: Maintain a wide stance with one foot slightly in front of the other. Keep your back straight. Bend utilizing the strength in your hips and knees. Do not bend at the waist. Maintain the lifted object at your waist-level close to your body. Avoid lifting weight that causes immediately pain or pain anywhere in the body afterwards. Smoking/Nicotine If there was ever one thing that you could do to increase your overall health, decrease your risk of cardiovascular problems by about 39% the second you make the choice, it is to STOP SMOKING. Your body's most instant gratification is the second you stop smoking. We have all heard the studies, read the articles but it is true, smoking is extremely bad for your overall health, and moreover it is detrimental to your bone health. Nicotine, IN ANY FORM, kills bone cells, prevents your body from healing fractures, and significantly prolongs healing after surgery. In spine surgery specifically, it increases your risk of not healing your bones to create a fusion and increases your risk of having a revision surgery due to this up to 60%. I know it is hard. I know it feels impossible. But there are ways. Take control of your life. We are here to help you through it. And when you are ready, ask us and we can direct you to help if you desire. Use the START Plan to Quit Smoking (please visit the Helpguide.org website listed below for more information): S = Set a quit date. Choose a date within the next 2 weeks, so you have enough time to prepare without losing your motivation to quit. If you mainly smoke at work, quit on the weekend, so you have a few days to adjust to the change. T = Tell family, friends, and co-workers that you plan to quit. Let your friends and family in on your plan to quit smoking and tell them you need their support and encouragement to stop. Look for a quit pavan who wants to stop smoking as well. You can help each other get through the rough times. A = Anticipate and plan for the challenges you'll face while quitting. Most people who begin smoking again do so within the first 3 months. You can he lp yourself make it through by preparing ahead for common challenges, such as nicotine withdrawal and cigarette cravings. R = Remove cigarettes and other tobacco products from your home, car, and work. Throw away all your cigarettes (no emergency pack!), lighters, ashtrays, and matches. Wash your clothes and freshen up anything that smells like smoke. Shampoo your car, clean your drapes and carpet, and steam your furniture. T = Talk to your doctor about getting help to quit. Your doctor can prescribe medication to help with withdrawal and suggest other alternatives. If you can't see a doctor, you can get many products over the counter at your local pharmacy or grocery store, including the nicotine patch, nicotine lozenges, and nicotine gum. Resources for Quitting Smoking: <https://www.[place].gov/documents/[facility]/Quit_Tobacco_Resources_for_patients_313 480_7.pdf> Supplementation: Take recommended dosages of Vitamin D and Calcium to help fortify your bones and help them to heal. See your health maintenance packet for dosages and recommended levels. DVT/VTE prophylaxis: You will be given compression stockings from the hospital. Wear these daily for the first two weeks after surgery. You may take them off at night. You may be prescribed a medication to help thin your blood. Take this as directed. If you are not prescribed this medication, early and frequent ambulation has been shown to be the best prophylaxis to deep vein thrombosis and sequelae related to this event. Procedures: Stage I ACDF C3-C7, stage II C2-T2 posterior decompression and fusion Patient Condition at Discharge: Fair Plan - Discharge Summary Discharge Rx Participant: No New Discharge Prescriptions: New polyethylene glycoL 3350 [Miralax] 17 gm PO DAILY PRN #21 packet PRN Reason: Constipation HYDROcodone/APAP 5-325MG [Adrian 5-325] 1 tab PO Q6HR PRN #18 tab PRN Reason: Pain oxyCODONE HCL [OxyIR] 5 mg PO Q8HR PRN 3 Days #12 tab PRN Reason: Pain cefaDROXiL [Duricef] 500 mg PO Q12HR 5 Days #10 cap Sennosides/Docusate Sodium [Senna-S 8.6-50 mg Tablet] 2 each PO DAILY PRN #30 tablet PRN Reason: Constipation No Action Pramipexole [Mirapex] 0.125 mg PO BID PRN PRN Reason: RESTLESS LEGS ALPRAZolam [Alprazolam] 0.25 mg PO BID PRN PRN Reason: Anxiety Pramipexole [Mirapex] 0.125 mg PO HS Naproxen Sodium [Aleve] 440 mg PO DAILY oxyCODONE HCL [OxyIR] 5 mg PO TID PRN PRN Reason: Pain amLODIPine [Norvasc] 5 mg PO HS Losartan Potassium 100 mg PO DAILY Fish Oil/Dha/Epa [Fish Oil 1,200 mg Fish Oil] 1 cap PO BID Multivitamin (No Iron) 1 tab PO DAILY Omeprazole 20 mg PO HS Discharge Medication List ALPRAZolam [Alprazolam] 0.25 mg PO BID PRN 06/23/16 [History] Pramipexole [Mirapex] 0.125 mg PO BID PRN 06/23/16 [History] Pramipexole [Mirapex] 0.125 mg PO HS 03/10/23 [History] Fish Oil/Dha/Epa [Fish Oil 1,200 mg Fish Oil] 1 cap PO BID 01/26/24 [History] Losartan Potassium 100 mg PO DAILY 01/26/24 [History] Multivitamin (No Iron) 1 tab PO DAILY 01/26/24 [History] Naproxen Sodium [Aleve] 440 mg PO DAILY 01/26/24 [History] Omeprazole 20 mg PO HS 01/26/24 [History] amLODIPine [Norvasc] 5 mg PO HS 01/26/24 [History] oxyCODONE HCL [OxyIR] 5 mg PO TID PRN 01/26/24 [History] HYDROcodone/APAP 5-325MG [Adrian 5-325] 1 tab PO Q6HR PRN #18 tab 02/06/24 [Rx] Sennosides/Docusate Sodium [Senna-S 8.6-50 mg Tablet] 2 each PO DAILY PRN #30 tablet 02/06/24 [Rx] cefaDROXiL [Duricef] 500 mg PO Q12HR 5 Days #10 cap 02/06/24 [Rx] oxyCODONE HCL [OxyIR] 5 mg PO Q8HR PRN 3 Days #12 tab 02/06/24 [Rx] polyethylene glycoL 3350 [Miralax] 17 gm PO DAILY PRN #21 packet 02/06/24 [Rx] Follow up Appointment(s)/Referral(s): Kennedy Bruce [Primary Care Provider] - 1-2 days Og Piedra DO [Doctor of Osteopathic Medicine] - 1 Week Activity/Diet/Wound Care/Special Instructions: Spine Discharge and Recovery Instructions Date of Surgery: 01/29/2024, 02/01/2024 Diagnosis: severe cervical spondylosis with stenosis, bilateral upper extremity myelopathy Procedure: Stage I: C3-C7 ACDF, Stage II: C2-T2 decompression and fusion Medications: See medication list All medication refills should be obtained through your primary care doctor or your clinic spine surgeon. Please discuss prescription refills at your follow up appointment. Do not call the hospital for medication refills. Activity: Encourage ambulation with assist of walker, Up and about 6-8x daily PT/OT daily work on balance, strength and mobility Up in chair with all meals Shower daily Brace: Use brace when up and about, do not wear in bed or shower Dressing: Leave your dressing in place for a total of 3 days post operatively. Then you may remove your dressing and leave open to air. Keep the area clean and if not able to keep area clean, then cover with sterile gauze and tape. Showering: You may shower 3 days after your procedure allowing soap and water to run over incision. Do not scrub. Do not soak. Blot dry. Follow up: Please confirm a follow up appointment with your surgeon 2 weeks post operatively. Please make an appointment to follow up with your PCP in 1-2 weeks after surgery for evaluation '3 phase, 3-week plan' POST OP WEEKS 1-3 1. Lifting/carrying/pushing/pulling limited to less than 5 pounds. 2. Do not sit for longer than 15 minutes at one time. Get up and walk around. Prolonged sitting is NOT advised. If you lay down, see if you can tolerate laying down on you front (belly side) 3. Walk for periods of 15 minutes = 1 mile but no longer; do it multiple times times each day. 4. Ice your low back after activity. POST OP WEEKS 3-6 1. Lifting limited to less than 20 pounds. 2. Do not sit for longer than 30 minutes at a time. Frequently change positions. Use a sit-to stand workstation or take frequent breaks from sitting if you have returned to work. 3. Walk for 30 minutes each day. If possible, do these three or more times a day POST OP WEEKS 6+ At your 6-week appointment we will give you a physical therapy referral to focus on a core stabilization and strengthening program. You should also work on leg & buttock strengthening, hamstring & quadriceps stretching, and continue a low impact aerobic activity program such as swimming, walking, or riding a stationary bicycle. During the initial 6 weeks after your surgery, you are at the highest risk of re-injuring your spine. You should generally avoid BLT's (bending, lifting and twisting combination motions) and follow the above guidelines to reduce the chance of reinjury. You can anticipate post op appointments in our office at approximately 3 weeks and 6 weeks after your surgery. INCISION CARE: If your incision is not draining you do NOT need to cover it with a dressing. Keep your incision clean, dry and intact. In most cases, we apply skin glue, amanda or sutures to the incision at the time of surgery. This will be like a crust or have the appearance of a scab and will fall off in time on its own. The stitches or amanda need to be removed at 3 weeks post op appointment. You may begin to shower 3 days after surgery (this allows the glue to morales well). However, please avoid scrubbing the incision site or peeling off any of the skin glue. This will ensure optimal healing of your incision. Also, during this time avoid soaking the incision area in water - this includes swimming pools, hot tubs or baths. No ointments, lotions or oils on the incision until your surgeon allows. Leave amanda, sutures or glue in place. Neurological dysfunction that comes on suddenly can also be a sign of a stroke. Below some common symptoms of a stroke are listed: B - balance difficulty such as sudden onset walking or leaning to one side - NEW E - eye problem such as sudden double vision or trouble seeing on one side - NEW F - Facial weakness or numbness on one side - NEW A - Arm or leg weakness or numbness on one side - NEW S - Slurred speech or difficulty with word finding - NEW T - Time is BRAIN! Call 911 as soon as you recognize these symptoms Diet: Consume a regular diet rich in vegetables and lean protein such as chicken or fish. You should consume in a ratio of approximately 20% fats|40% carbohydrates|40%protein. Vegetables, sweet potatoes, brown rice or quinoa are examples of good carbohydrates. Chips, white bread, cookies and sweets/sugar are examples of bad carbohydrates. Limit your bad carbs, go wild with good carbs. "Life's Simple 7" Guidelines as per [place] [employer] These will help you reclaim your life after surgery and scientific helper in your recovery, keeping in mind your restrictions. (1) Get Active. Physical activity can help people lose weight, control high blood pressure and cholesterol, feel emotionally better, and sleep better. (2) Control Cholesterol. Avoid a diet high in saturated fat, trans fat, & cholesterol. Limit whole milk & cream, ice cream, butter, egg yolks, processed meats (like sausage and hot dogs), and fatty meats. Choose healthy foods that are low in saturated fat, trans fat and cholesterol which include: Fruits and vegetables, fiber rich grain products (like whole grain pasta and brown rice), lean meat such as chicken, fish, nuts, seeds, and legumes. (3) Eat Better. Eat small portions. Shop at the grocery with a list and do not stray from it. Tips for a healthy diet include: Limit sodium intake to less than 1500mg daily, avoid prepackaged, processed, and fast foods, choose a diet rich in fruits, vegetables, and whole grain, high fiber foods, and limit saturated & cholesterol in your diet. (4) Manage Blood Pressure. If you have high blood pressure, you should have a cuff at home so that you can check your blood pressure regularly. Be sure you have a good cuff. An arm one is generally better than a wrist one. Bring the cuff to a doctor's appointment to validate that the measurements that your cuff are taking are accurate. Take your blood pressure twice daily when you are sitting down and relaxing. Record the numbers in a log and bring this log with you to your doctors' appointments. (5) Lose Weight if your BMI is above 25. A healthy BMI is between 19-25. To c alculate Your BMI, you may use a Standard BMI Calculator on the NIH BMI website: <www.nhlbi.nih.gov/guidelines/obesity/BMI/bmicalc.htm>. Weigh oneself daily. If you are overweight, set a goal to lose weight. A pound a week loss if needed is a good target. (6) Reduce Blood Sugar. Limit foods and liquids with "added sugars." (Added sugars include sucrose, fructose, glucose, maltose, dextrose, high fructose corn syrup, corn syrup, concentrated fruit juice and honey). (7) Stop Smoking. If you smoke, quitting smoking is one of the best things that you can do for your health. Smoking increases your risk of heart attack, stroke, and peripheral vascular disease, which is a build-up of plaque in your arteries. Please discard all the cigarettes and lighters in your house. Have a plan for what you will do when you have the urge to smoke. Direct and second- hand smoke shortens your life as well as the lives of your family, friends and others around you. For your health and the health of those around you, please consider quitting! Proper Bending Body Mechanics: Maintain a wide stance with one foot slightly in front of the other. Keep your back straight. Bend utilizing the strength in your hips and knees. Do not bend at the waist. Maintain the lifted object at your waist-level close to your body. Avoid lifting weight that causes immediately pain or pain anywhere in the body afterwards. Smoking/Nicotine If there was ever one thing that you could do to increase your overall health, decrease your risk of cardiovascular problems by about 39% the second you make the choice, it is to STOP SMOKING. Your body's most instant gratification is the second you stop smoking. We have all heard the studies, read the articles but it is true, smoking is extremely bad for your overall health, and moreover it is detrimental to your bone health. Nicotine, IN ANY FORM, kills bone cells, prevents your body from healing fractures, and significantly prolongs healing after surgery. In spine surgery specifically, it increases your risk of not healing your bones to create a fusion and increases your risk of having a revision surgery due to this up to 60%. I know it is hard. I know it feels impossible. But there are ways. Take control of your life. We are here to help you through it. And when you are ready, ask us and we can direct you to help if you desire. Use the START Plan to Quit Smoking (please visit the Helpguide.org website listed below for more information): S = Set a quit date. Choose a date within the next 2 weeks, so you have enough time to prepare without losing your motivation to quit. If you mainly smoke at work, quit on the weekend, so you have a few days to adjust to the change. T = Tell family, friends, and co-workers that you plan to quit. Let your friends and family in on your plan to quit smoking and tell them you need their support and encouragement to stop. Look for a quit pavan who wants to stop smoking as well. You can help each other get through the rough times. A = Anticipate and plan for the challenges you'll face while quitting. Most people who begin smoking again do so within the first 3 months. You can help yourself make it through by preparing ahead for common challenges, such as nicotine withdrawal and cigarette cravings. R = Remove cigarettes and other tobacco products from your home, car, and work. Throw away all your cigarettes (no emergency pack!), lighters, ashtrays, and matches. Wash your clothes and freshen up anything that smells like smoke. Shampoo your car, clean your drapes and carpet, and steam your furniture. T = Talk to your doctor about getting help to quit. Your doctor can prescribe medication to help with withdrawal and suggest other alternatives. If you can't see a doctor, you can get many products over the counter at your local pharmacy or grocery store, including the nicotine patch, nicotine lozenges, and nicotine gum. Resources for Quitting Smoking: <https://www.[place].gov/documents/[facility]/Quit_Tobacco_Resources_for_patients_313 480_7.pdf> Supplementation: Take recommended dosages of Vitamin D and Calcium to help fortify your bones and help them to heal. See your health maintenance packet for dosages and recommended levels. DVT/VTE prophylaxis: You will be given compression stockings from the hospital. Wear these daily for the first two weeks after surgery. You may take them off at night. You may be prescribed a medication to help thin your blood. Take this as directed. If you are not prescribed this medication, early and frequent ambulation has been shown to be the best prophylaxis to deep vein thrombosis and sequelae related to this event. Discharge Disposition: TRANSFER TO SNF/ECF
[2024-02-06 11:57] VITALS: BP 100/72; PULSE 68; RESP 17; TEMP 98.3
--- NOTE | 2024-02-06 13:53 | P.PN ---
Subjective Progress Note Date: 02/06/24 HISTORY OF PRESENTING ILLNESS Patient is a 73-year-old male with past medical history of hyperte nsion, osteoarthritis, GERD, history of pancreatic cancer s/p chemotherapy and Whipple's procedure in 2016. Patient underwent cervical spine surgery on 02/02/2024. On 02/03/2024 patient was noticed to be in atrial fibrillation with RVR for which cardiology was consulted. On evaluating patient at bedside there is noted that patient is in a flutter with heart rate of 150 bpm. Patient has a cervical s pine collar in place. He denies any symptoms of chest pain chest pressure. His ECG does not show any significant ischemic. Patient does not appear volume overloaded. He denies any symptoms of ligh theadedness or dizziness. Relavant labs HbA1c 5, NT proBNP 395, TSH 1.2, LDL 56, hemoglobin 13.2 February 04, 2024 Patient's heart rate was better controlled this morning being maintained on Cardizem drip. I will discontinue Cardizem drip and will increase his metoprolol to 100 mg twice daily 02/04 Patient remains in atrial flutter running in the 80s. Echocardiogram is pending. Patient remains on Cardizem gtt at 10 mg/hr. Patient remains on Heparin gtt as well. 02/05 Yesterday, patient was in and out of RVR, atrial flutter but this morning he has converted to sinus rhythm. Cardizem drip will be discontinued. Echocardiogram report revealed EF of 35 to 40%, mild tricuspid regurgitation. Results reviewed with the patient and need for cardiac catheterization as an outpatient. He is scheduled for discharge today to rehab PHYSICAL EXAMINATION Vital signs reviewed. Head: Normocephalic. Eyes: Sclerae nonicteric. Neck: Brisk carotid upstroke, no jugular venous distention. Hard c-collar in place. Lungs: Clear to auscultation. Heart: Irregularly irregular, mild systolic murmur audible in aortic area Abdomen: Soft nontender, positive bowel sounds. Extremities: No edema, intact distal pulses. Neuro: Alert, oritented, no focal deficits. Detailed neuro exam was not performed. ASSESSMENT New onset atrial flutter with RVR, currently rate controlled Cervical stenosis with myelopathy and radiculopathy status post surgery 02/02/2024 Hypertension History of pancreatic cancer status post Whipple's procedure and chemotherapy GERD Cardiomyopathy of unclear etiology PLAN Discontinue IV heparin and start patient on Eliquis 5 mg twice daily Continue the following cardiac medications: Lopressor 100 mg bid, lisinopril 2.5 mg daily added Patient is cleared for discharge and may follow-up in the office in 1 to 2 weeks. Plan would be for outpatient heart catheterization to evaluate cardiom yopathy. Nurse practitioner note has been reviewed, I agree with documented findings and plan of care. Patient was seen and examined. Objective - Vital Signs Vital signs: Vital Signs Temp 98.2 F 02/06/24 03:56 Pulse 64 02/06/24 03:56 Resp 20 02/06/24 03:56 BP 115/80 02/06/24 03:56 Pulse Ox 94 L 02/06/24 03:56 FiO2 Intake & Output 02/05/24 02/06/24 02/06/24 18:59 06:59 18:59 Intake Total 543.667 28.75 179.583 Output Total 300 500 Balance 243.667 -471.25 179.583 Weight 62.5 kg Intake: Intake, IV Titration 303.667 28.75 59.583 Amount Diltiazem 125 mg In 53.667 28.75 59.583 Sodium Chloride 0.9% 100 ml @ 10 MG/HR 10 mls/hr IV .[id number] ОЛЬГА Rx#: [id number] Heparin Sod,Pork in 0.45% 250 NaCl 25,000 unit In 0.45 % NaCl 1 250ml.bag @ 12 UNITS/KG/HR 8.546 mls/hr IV .Q24H ОЛЬГА Rx#: [id number] Oral 240 120 Output: Urine 300 500 Other: Voiding Method External Catheter External Catheter # Bowel Movements 1 - Labs CBC & Chem 7: 02/04/24 04:00 02/02/24 04:58 Labs: Abnormal Lab Results - Last 24 Hours (Table) 02/06/24 Range/Units 05:53 APTT 50.5 H (22.0-30.0) sec
--- NOTE | 2024-02-10 09:54 | P.PN ---
Subjective Progress Note Date: 02/06/24 73-year-old male patient with past medical history significant for hypertension, osteoarthritis, GERD, history of pancreatic cancer status post chemotherapy and Whipple's procedure in 2016, history of heart murmur who was following orthopedic for worsening low back pain and progressive difficulty in ambulation since August. Patient does not remember any inciting event in the epidural, patient reported that he he noted that towards the end of the month he was losing the ability to walk. Patient felt his legs were progressively getting more wobbly, was also feeling more unsteady, reported losing his balance and also was unable to hold onto objects. Patient stated that he has been seen by [facility] and physical therapy without much relief. Patient had MRI of brain and lower back. MRI lower back showed L5-S1 spondylosis with listhesis. Patient reported bilateral lower extremity weakness, numbness, tingling as well as medial thigh numbness and tingling. Patient also reported weakness of upper e xtremities. Patient also had MRI of the neck done and read alert was sent to orthopedics and patient was advised to come to the ED. 01/27--patient was seen and examined today. No issues overnight. Vital stable. Blood pressure 147/78. Saturating 92% on room air. 01/28--patient was seen and examined today. No issues overnight. Status post ACDF C3-C7 today. 01/29--patient was seen and examined today. Patient sitting up in chair, complaining of neck pain, got worse after patient ambulated. Complaining of bilateral shoulder pain, reported improvement in lower extremity weakness. REYES drain in place. Patient scheduled for stage II C2-T2 decompression and fusion for , 02/01/2024. Incentive spirometry, PT/OT consult. Orthopedic spine following. 01/31/2024 Patient is seen in follow-up today being followed by orthopedics and scheduled to undergo stage II of the decompression and fusion on 02/01/2024. Patient reports his initial surgery was earlier this week anteriorly. Patient continues with neck collar and currently up in the chair. Patient to continue on bowel regimen and recommend scheduled as well as as needed as patient reports he is passing gas but did not have much of a bowel movement although he is not quite reporting constipation. Continue to encourage incentive spirometer and increase activity as tolerated. PT/OT therapy once cleared by orthopedics 02/01/2024 Patient was taken to the OR by orthopedics and is scheduled to undergo post lateral fusion of C2-T2 with laminectomy and foraminotomy secondary to severe cervical stenosis. Will await official surgical report 02/02/2024 Patient is seen and evaluated in follow-up postop day 1 underwent posterior de compression. Patient is afebrile with no reports of chest pain or palpitations. Patient denies shortness of breath although does have a cough and irritation of the throat and esophagus which could be secondary to surgery yesterday. Patient reports is having some congestion with phlegm that is more productive in the a.m. and will obtain a chest x-ray. Patient is afebrile and will follow-up on r epeat labs. Patient has been instructed to continue with incentive spirometer frequently including 10 times every hour while awake. 02/03/2024--patient was seen and examined today. Complains of neck pain worse with exertion. Patient underwent into A-fib with RVR for which cardiology consulted. Patient was noted to have atrial flutter with heart rate going into 150 bpm. Patient was asymptomatic. Blood pressure stable. EKG negative for any ischemic changes. Cardiology recommended to start Cardizem drip, heparin drip once cleared by surgery, echocardiogram, started metoprolol. 02/04/2024--- patient was seen and examined today. Pain is controlled. Patient was still in A-fib with RVR, requiring Cardizem drip earlier today. Cardiology following, increased metoprolol to 100 mg twice daily, remains on heparin drip. Orthopedic following. 02/05/24 Patient is seen this morning and continues on cardizem drip and being titrated down. Patient also continues on IV heparin and will need to transition to oral anticoagulant when cleared by orthopedics. Cardio following and adjusting medi cations 02/06/2024 Patient is seen in follow-up this morning and per nursing staff has received insurance authorization to go to [facility] today. Patient has been transition to oral anticoagulation and heart rates currently rate controlled. Patient with significant weakness evaluated by physical therapy recommending rehab and patient is agreeable. Orthopedics working on discharge planning. Patient is medically stable and recommend follow-up with cardiology along with his primary care provider in the outpatient setting. REVIEW OF SYSTEMS: CONSTITUTIONAL: No fever or chills. Complains of neck pain. CARDIOVASCULAR: No chest pain, no reports of palpitations or syncope. PULMONARY: No shortness of breath, reports somewhat productive cough GASTROINTESTINAL: No nausea, vomiting, diarrhea, abdominal pain. : No Dysuria, urgency, frequency. Extremities: No edema. NEUROLOGICAL: No headaches, no weakness, or numbness PHYSICAL EXAMINATION: GENERAL: The patient is A&O x3, NAD elderly appearing HEENT: EOMI, Sclerae anicteric, Moist Mucous membranes Neck: Cervical collar in place, REYES drain in place, decreased range of motion. PULMONARY: Diminished breath sounds bilaterally otherwise clear to auscultation other than noted bronchial congestion, no accessory muscle use, no wheezing or crackles noted CARDIOVASCULAR: S1, S2 muffled, irregular ABDOMEN: Soft, thin, nontender, nondistended, normoactive bowel sounds. No guarding or rebound tenderness. MUSCULOSKELETAL: No edema, No cyanosis. No clubbing. Normal ROM. Intact peripheral pulses. EXTREMITIES: No cyanosis, clubbing, or pedal edema. NEUROLOGICAL: CN 2-12 grossly intact. No FND Skin: No Rash Assessment: Cervical stenosis with myelopathy and radiculopathy with bilateral upper and lower extremity weakness with numbness, status post ACDF C3-7 on 01/29/2024. and status post posterior intervention 02/01/24, Posterior C2-T2 decompression and fusion. New onset A-fib with RVR: Noted to have atrial flutter with RVR on 02/03/2024new onset. Transition to oral anticoagulant and oral beta-janey MRI lumbar spine showed L5-S1 spondylosis with listhesis. MRI cervical spine:Images reviewed demonstrate multilevel spondylosis with HNP and severe stenosis C3-7 with severe cord signal changes at every level along with foraminal stenosis. There are pincer lesions at C3-7 levels with severe central stenosis noted. Flattened CL due to collapse of disc spaces as well as spondylosis. Severe facet arthrosis noted. No fractures. No lesions C0-1 and C1-2 stable. Hypertension history History of pancreatic cancer GERD GI prophylaxis DVT prophylaxis Full code Plan: Patient continues with hard collar with orthopedics following and is status post posterior decompression 02/01/2024. Home medications reviewed and resumed as appropriate Encourage incentive spirometer use at least 10 times every hour while awake. New onset afib and evaluated by cardiology placed on oral anticoagulant, currently rate controlled on the monitor PT/OT therapy daily. Case management following and patient has received insurance authorization to go to [facility]. Patient is being discharged today per orthopedics. Patient is medically stable and has been instructed to follow-up with cardiology along with primary care provider on discharge We will continue to follow with orthopedics during hospitalization. Thank you kindly for this consultation. The impression and plan of care has been dictated by Meera Fitzgerald Nurse Pr actitioner as directed. Dr. Herve MD I have performed a history and examination and MDM of this patient, discussed the same with the dictator, and agree with the dictator's assessment and plan a s written ,documented as a scribe. Based on total visit time, I have performed more than 50% of the visit. Objective - Vital Signs Vital signs: Vital Signs Temp 98.3 F 02/06/24 11:55 Pulse 68 02/06/24 11:55 Resp 17 02/06/24 11:55 BP 100/72 02/06/24 11:55 Pulse Ox 94 L 02/06/24 11:55 FiO2 Intake & Output 02/05/24 02/06/24 02/06/24 18:59 06:59 18:59 Intake Total 543.667 28.75 633.938 Output Total 300 500 Balance 243.667 -471.25 633.938 Weight 62.5 kg Intake: Intake, IV Titration 303.667 28.75 273.938 Amount Diltiazem 125 mg In 53.667 28.75 59.583 Sodium Chloride 0.9% 100 ml @ 10 MG/HR 10 mls/hr IV .[id number] ОЛЬГА Rx#: [id number] Heparin Sod,Pork in 0.45% 250 214.355 NaCl 25,000 unit In 0.45 % NaCl 1 250ml.bag @ 12 UNITS/KG/HR 8.546 mls/hr IV .Q24H ОЛЬГА Rx#: [id number] Oral 240 360 Output: Urine 300 500 Other: Voiding Method External Catheter External Catheter External Catheter # Bowel Movements 1 1 - Labs CBC & Chem 7: 02/04/24 04:00 02/02/24 04:58 Labs: Abnormal Lab Results - Last 24 Hours (Table) 02/06/24 Range/Units 05:53 APTT 50.5 H (22.0-30.0) sec
== END 2024-02-06 16:02 | DRG 453 ==
LOC: EC 15:54 → 4SSUR 16:57 → 3SCARD 02-03 12:20
PROVIDERS: ADMIT Orthopaedic Surgery; ATTEND Orthopaedic Surgery
PROC: 0RG20A0 Fusion of 2 or more Cervical Vertebral Joints with Interbody Fusion Device, Anterior Approach, Anterior Column, Open Approach (ICD-10-PCS; principal; 2024-01-29)
PROC: 0RT30ZZ Resection of Cervical Vertebral Disc, Open Approach (ICD-10-PCS; 2024-01-29)
PROC: 0RG2071 Fusion of 2 or more Cervical Vertebral Joints with Autologous Tissue Substitute, Posterior Approach, Posterior Column, Open Approach (ICD-10-PCS; 2024-02-01)
PROC: 0RG4071 Fusion of Cervicothoracic Vertebral Joint with Autologous Tissue Substitute, Posterior Approach, Posterior Column, Open Approach (ICD-10-PCS; 2024-02-01)
PROC: 0RG6071 Fusion of Thoracic Vertebral Joint with Autologous Tissue Substitute, Posterior Approach, Posterior Column, Open Approach (ICD-10-PCS; 2024-02-01)
PROC: 01N10ZZ Release Cervical Nerve, Open Approach (ICD-10-PCS; 2024-02-01)
PROC: 01N80ZZ Release Thoracic Nerve, Open Approach (ICD-10-PCS; 2024-02-01)
PROC: 00NW0ZZ Release Cervical Spinal Cord, Open Approach (ICD-10-PCS; 2024-02-01)
PROC: 00NX0ZZ Release Thoracic Spinal Cord, Open Approach (ICD-10-PCS; 2024-02-01)
DX: M47.12 Other spondylosis with myelopathy, cervical region (principal); G82.50 Quadriplegia, unspecified; G95.89 Other specified diseases of spinal cord; I42.9 Cardiomyopathy, unspecified; I48.92 Unspecified atrial flutter; G25.81 Restless legs syndrome; M48.02 Spinal stenosis, cervical region; M47.22 Other spondylosis with radiculopathy, cervical region; G89.29 Other chronic pain; I10 Essential (primary) hypertension; H91.92 Unspecified hearing loss, left ear; I48.91 Unspecified atrial fibrillation; K21.9 Gastro-esophageal reflux disease without esophagitis; K59.09 Other constipation; M43.12 Spondylolisthesis, cervical region; Z85.07 Personal history of malignant neoplasm of pancreas; Z87.891 Personal history of nicotine dependence; Z92.21 Personal history of antineoplastic chemotherapy; Z99.3 Dependence on wheelchair
CPT/HCPCS: 71045; 72040; 72125; 80053; 80061; 83036; 83605; 83735; 83880; 84443; 84484; 85025; 85027; 85610; 85730; 86850; 86900; 86901; 93306; 99285

== ENCOUNTER → 2024-01-26 | Outpatient (CLI) | payer MEDICARE ==
--- NOTE | 2024-01-26 09:24 | MR ---
EXAMINATION TYPE: MR cervical spine wo con DATE OF EXAM: 01/26/2024 COMPARISON: None HISTORY: Javi hand weakness TECHNIQUE: Multiplanar, multisequence images of the cervical spine were acquired without contrast. There is a cu rvature of the spine with multilevel severe degenerative disc disease. C2-C3: No evidence for degenerative disc disease. No disc bulge/herniation or protrusion. No Canal stenosis. Foramina are patent bilaterally. Facet arthropathy. C3-C4: Moderate degenerative disc disease with a right disc protrusion osteophyte complex paracentral ly to the right encroaching upon the spinal cord and resulting in severe right-sided foraminal encroa chment. C4-C5: Diffuse disc protrusion with facet arthropathy and uncovertebral joint hypertrophy. Moderate t o severe canal stenosis. Abnormal signal in the spinal cord may represent myelitis or myelomalacia. C5-C6: Moderate to severe degenerative disc disease with facet arthropathy. There is broad-based disc protrusion with moderate left and mild right foraminal encroachment. Borderline to mild central sten osis. C6-C7: Severe degenerative disc disease with facet arthropathy and broad-based disc protrusion slight ly greater paracentrally to the left. No Canal stenosis. Moderate right and mild left foraminal encro achment. C7-T1: No evidence for degenerative disc disease. No disc bulge/herniation or protrusion. No Canal stenosis. Foramina are patent bilaterally. Cervical segments are intact. There is normal alignment. Craniovertebral junction relationships are within normal limits. Grade 1 anterolisthesis C4-C5. Referring clinicians notified of findings over the telephone 9:30 AM 01/26/2024. IMPRESSION: 1. Abnormal signal within the spinal cord levels C3-C5 may be secondary to compressive myelitis or my elomalacia. There is mass effect and mild compression of the spinal cord. 2. Multilevel severe degenerative disc disease with broad-based disc protrusion and hypertrophic kang ges C4-C5 results in moderate to severe canal stenosis and bilateral foraminal encroachment. 3. Right paracentral disc osteophyte complex with spondylosis and disc protrusion capped by spur C3-4 results in severe right-sided foraminal encroachment. 4. Mild central stenosis C5-C6 due to broad-based disc bulging and hypertrophic changes with bilatera l foraminal encroachment.
== END | disposition home or self-care (01) ==
LOC: RADMRIMAIN 06:57
PROVIDERS: ATTEND Orthopaedic Surgery
DX: M48.02 Spinal stenosis, cervical region (principal); M47.12 Other spondylosis with myelopathy, cervical region; M50.021 Cervical disc disorder at C4-C5 level with myelopathy
CPT/HCPCS: 72141